=== PATIENT | male | born 1935 | race Caucasian/White ===

== ENCOUNTER 2016-09-20 09:16 | Observation (INO) | payer MEDICARE ==
[2016-09-20] MEDS ORDERED: METOCLOPRAMIDE 5 MG/ML 2 ML VIAL IVP STA (09:39)
[2016-09-20] MEDS ORDERED: diphenhydrAMINE 50 MG/ML 1 ML VIAL IVP STA (09:39)
[2016-09-20] MEDS ORDERED: SODIUM CHLORIDE 0.9% 500 ML IV STA (09:39)
[2016-09-20 11:08] LABS: Aty Lym Flag Slight; CH 31.6; HCT 42.7 % (39.0-53.0); HDW 2.35; HGB 14.6 gm/dL (13.0-17.5); MCH 31.8 pg (25.0-35.0); MCHC 34.1 g/dL (31.0-37.0); MCV 93.3 fL (80.0-100.0); Mean Platelet Volume 7.5; RBC 4.58 m/uL (4.30-5.90); RDW 13.8 % (11.5-15.5); WBC 6.6 k/uL (3.8-10.6); WBC (Perox) 6.27
[2016-09-20 11:15] LABS: Anion Gap 8 mmol/L; Blood Urea Nitrogen 13 mg/dL (9-20); Calcium 8.7 mg/dL (8.4-10.2); Carbon Dioxide 27 mmol/L (22-30); Chloride 107 mmol/L (98-107); Glucose 121 mg/dL (74-99); Non-African American GFR(MDRD) >60 (>60 ml/min/1.73 sqM); Potassium 4.2 mmol/L (3.5-5.1); Sodium 142 mmol/L (137-145)
--- NOTE | 2016-09-20 11:19 | CT ---
EXAMINATION TYPE: CT brain wo con DATE OF EXAM: 09/20/2016 HISTORY: CABRERA CT DLP: 1162 mGycm. Automated Exposure Control for Dose Reduction was Utilized. TECHNIQUE: CT scan of the head is performed without contrast. COMPARISON: CT brain dated 07-26-2014. FINDINGS: There is no acute intracranial hemorrhage or new midline shift identified. Old infarct le ft frontal parietal region is redemonstrated. Subtle midline shift to right with ex vacuo dilatation of left ventricular system is stable. There is diffuse ventricular and sulcal prominence consistent w ith diffuse age-related cerebral atrophy. There is low-attenuation in the periventricular white edison er consistent with chronic small vessel ischemic change. The globes are intact and the visualized si nuses are clear. IMPRESSION: No acute intracranial hemorrhage or new midline shift. Old left-sided infarct with diffu se age-related cerebral atrophy and chronic small vessel ischemic change all redemonstrated.
[2016-09-20 11:41] LABS: Add Differential Manual Differential
[2016-09-20 11:43] LABS: Manual Review Performed; Nucleated Red Blood Cells 0 /100 WBC (0-0); Total Cells Counted 100
[2016-09-20 12:07] LABS: Appearance,Urine Clear (Clear); Bilirubin,Urine Negative (Negative); Glucose,Urine (UA) Negative (Negative); Ketones,Urine Negative (Negative); Leukocyte Esterase,Urine Negative (Negative); Nitrite,Urine Negative (Negative); PH, Urine 6.5 (5.0-8.0); Protein,Urine Negative (Negative); Specific Gravity,Urine 1.004 (1.001-1.035); UA Billing (MACRO vs. MICRO) CHEM; Urobilinogen,Urine <2.0 mg/dL (<2.0)
[2016-09-20 12:26] LABS: Erythrocyte Sedimentation Rate 10 mm/hr (0-15)
[2016-09-20] MEDS ORDERED: KETOROLAC 30 MG/ML 1 ML VIAL IVP STA (12:46)
[2016-09-20] MEDS ORDERED: HYDROcodone/APAP 10-325MG 1 EACH TAB PO ONE (15:18)
[2016-09-20] MEDS ORDERED: NALOXONE 0.4 MG/ML 1 ML VIAL IV PRN (15:38)
[2016-09-20] MEDS ORDERED: HYDROcodone/APAP 5-325MG 1 EACH TAB PO PRN (15:38)
[2016-09-20] MEDS ORDERED: ONDANSETRON 4 MG/2 ML VIAL IVP PRN (15:38)
[2016-09-20] MEDS ORDERED: KETOROLAC 30 MG/ML 1 ML VIAL IVP PRN (15:38)
--- NOTE | 2016-09-20 15:48 | ED ---
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 Patient states the headache is all over with no specific location. Describes it as throbbing. Denies any vision changes. Denies fever. Denies photophobia. Denies vomiting diarrhea. Patient states he has not had much to eat or drink in the last several days. He's had generalized weakness and decreased appetite. Denies chest pain or shortness of breath. - Related Data Home Medications Medication Instructions Recorded Confirmed Cholecalciferol [Vitamin D3] 1,000 unit PO DAILY 01/19/14 09/20/16 Finasteride 5 mg PO HS 01/19/14 09/20/16 Nitroglycerin Sl Tabs [Nitrostat] 0.4 mg SL Q5M PRN 01/19/14 09/20/16 Simvastatin 20 mg PO HS 01/19/14 09/20/16 Terazosin [Hytrin] 5 mg PO HS 01/19/14 09/20/16 Allopurinol [Zyloprim] 100 mg PO BID PRN 07/26/14 09/20/16 Carvedilol [Coreg] 12.5 mg PO BID 07/26/14 09/20/16 Gabapentin 600 mg PO BID 04/14/15 09/20/16 amLODIPine [Norvasc] 5 mg PO HS 04/14/15 09/20/16 Ascorbic Acid [Vitamin C] 500 mg PO DAILY 09/20/16 09/20/16 Aspirin [Adult Low Dose Aspirin EC] 81 mg PO DAILY 09/20/16 09/20/16 Cetirizine HCl [Zyrtec] 10 mg PO HS 09/20/16 09/20/16 Fluticasone Nasal [place] [Flonase 1 spray EA NOSTRIL BID 09/20/16 09/20/16 Nasal [place]] Furosemide [Lasix] 20 mg PO DAILY 09/20/16 09/20/16 HYDROcodone/APAP 10-325MG [[place] 1 tab PO Q8HR PRN 09/20/16 09/20/16 10-325] Quinapril HCl [Accupril] 40 mg PO DAILY 09/20/16 09/20/16 Warfarin [Coumadin] 2.5 mg PO SUTUWETHSA 09/20/16 09/20/16 Warfarin [Coumadin] 5 mg PO MOFR 09/20/16 09/20/16 Allergies Allergy/AdvReac Type Severity Reaction Status Date / Time alprazolam [From Xanax] Allergy Unknown Verified 09/20/16 09:33 morphine Allergy Rash/Hives Verified 09/20/16 09:33 Penicillins Allergy Unknown Verified 09/20/16 09:33 Sulfa (Sulfonamide Allergy Unknown Verified 09/20/16 09:33 Antibiotics) Review of Systems ROS Statement: Those systems with pertinent positive or pertinent negative responses have been documented in the HPI. ROS Other: All systems not noted in ROS Statement are negative. Past Medical History Past Medical History: Coronary Artery Disease (CAD), Cancer, CVA/TIA, Hyperlipidemia, Hypertension, Seizure Disorder Additional Past Medical History / Comment(s): colon ca,gout, cva 1990 affecting rt side, seizure 1990, cellulits lower legs, neuropathy, pvd. History of Any Multi-Drug Resistant Organisms: MRSA Date of last positivie culture/infection: 2012 MDRO Source:: rt leg Past Surgical History: Coronary Bypass/CABG, Heart Catheterization, Orthopedic Surgery, Tonsillectomy Additional Past Surgical History / Comment(s): rt above knee amputation , bowel sx d/t cancer has coloctomy, lt fem bypass and rt leg shunt per old medical record. HAD BLOCKAGE RT GROIN SX DONE. heart cath/ptba, cataracts, toe sx and sx to repair lt pinky finger Past Psychological History: No Psychological Hx Reported Smoking Status: Former smoker Past Alcohol Use History: None Reported Past Drug Use History: None Reported - Past Family History Father Family Medical History: Unable to Obtain Additional Family Medical History / Comment(s): HEART PROBLEMS General Exam Limitations: physical limitation General appearance: alert, in no apparent distress Head exam: Present: atraumatic, normocephalic Eye exam: Present: normal appearance, PERRL. Absent: scleral icterus ENT exam: Present: mucous membranes dry Neck exam: Present: full ROM. Absent: tenderness, meningismus Respiratory exam: Present: normal lung sounds bilaterally. Absent: respiratory distress Cardiovascular Exam: Present: regular rate, normal rhythm GI/Abdominal exam: Present: soft, distended. Absent: tenderness, guarding Extremities exam: Present: normal capillary refill, other (Right AKA). Absent: pedal edema Neurological exam: Present: alert, oriented X3, other (Patient has residual dysarthria and right-sided weakness status post CVA.) Psychiatric exam: Present: normal affect, normal mood Skin exam: Present: warm, dry Course Vital Signs 09/20/16 09/20/16 09/20/16 09:42 11:00 12:15 Temperature 97.6 F 97.8 F Pulse Rate 82 58 L 60 Respiratory 16 18 18 Rate Blood Pressure 119/80 114/55 112/58 O2 Sat by Pulse 96 96 95 Oximetry 09/20/16 09/20/16 09/20/16 12:48 13:15 14:00 Temperature Pulse Rate 18 L 68 Respiratory 66 H 69 H 18 Rate Blood Pressure 116/80 139/75 138/82 O2 Sat by Pulse 97 95 Oximetry 09/20/16 09/20/16 09/20/16 15:09 15:24 15:26 Temperature 97.4 F L Pulse Rate 72 72 Respiratory 16 16 Rate Blood Pressure 186/83 134/73 O2 Sat by Pulse 95 Oximetry - Reevaluation(s) Reevaluation #1: 09/20/16 15:44 On reevaluation patient has persistent headache. Headache was mildly improved with medical therapy however is not completely resolved. EKG Findings - EKG Comments: EKG Findings:: EKG shows sinus rhythm with a first-degree AV block, prolonged DC interval at 210, ventricular rate of 67, QRS duration 156, QTC is 494. Medical Decision Making - Medical Decision Making 72-year-old male presenting with chief complaint of global headache. Patient states headache was gradual in onset. Also complains of some generalized weakness and decreased appetite. Initial workup including head CT is negative no intracranial hemorrhage or midline shift. Laboratory studies including CBC, BMP and urinalysis are unremarkable. Patient feels somewhat better after IV Toradol, Reglan and Benadryl as well as fentanyl given by EMS prior to arrival. However on second reevaluation his headache has worsened again. Patient will be admitted for further evaluation and treatment of his headache. - Lab Data Result diagrams: 09/20/16 10:30 09/20/16 10:30 Lab Results 09/20/16 09/20/16 09/20/16 Range/Units 10:30 10:30 11:59 WBC 6.6 (3.8-10.6) k/uL RBC 4.58 (4.30-5.90) m/uL Hgb 14.6 (13.0-17.5) gm/dL Hct 42.7 (39.0-53.0) % MCV 93.3 (80.0-100.0) fL MCH 31.8 (25.0-35.0) pg MCHC 34.1 (31.0-37.0) g/dL RDW 13.8 (11.5-15.5) % Plt Count 169 (150-450) k/uL Neutrophils % (Manual) 63.0 % Band Neutrophils % 3.0 % Lymphocytes % (Manual) 11.0 % Monocytes % (Manual) 14.0 % Eosinophils % (Manual) 9.0 % Neutrophils # (Manual) 4.4 (1.3-7.7) k/uL Lymphocytes # (Manual) 0.7 L (1.0-4.8) k/uL Monocytes # (Manual) 0.9 (0-1.0) k/uL Eosinophils # (Manual) 0.6 (0-0.7) k/uL Nucleated RBCs 0 (0-0) /100 WBC Manual Slide Review Performed Poikilocytosis (manual Present ESR 10 (0-15) mm/hr Sodium 142 (137-145) mmol/L Potassium 4.2 (3.5-5.1) mmol/L Chloride 107 (98-107) mmol/L Carbon Dioxide 27 (22-30) mmol/L Anion Gap 8 mmol/L BUN 13 (9-20) mg/dL Creatinine 0.93 (0.66-1.25) mg/dL Est GFR (MDRD) Af Amer >60 (>60 ml/min/1.73 sqM) Est GFR (MDRD) Non-Af >60 (>60 ml/min/1.73 sqM) Glucose 121 H (74-99) mg/dL Calcium 8.7 (8.4-10.2) mg/dL Urine Color Light Yellow Urine Appearance Clear (Clear) Urine pH 6.5 (5.0-8.0) Ur Specific [place] 1.004 (1.001-1.035) Urine Protein Negative (Negative) Urine Glucose (UA) Negative (Negative) Urine Ketones Negative (Negative) Urine Blood Negative (Negative) Urine Nitrite Negative (Negative) Urine Bilirubin Negative (Negative) Urine Urobilinogen <2.0 (<2.0) mg/dL Ur Leukocyte Esterase Negative (Negative) Disposition Clinical Impression: Dehydration, Headache Disposition: ADMITTED IP TO THIS [facility] Condition: Stable Referrals: Krish Champion MD [Primary Care Provider] - 1-2 days Decision to Admit Reason: Admit from EC Decision Date: 09/20/16 Decision Time: 15:00
[2016-09-20] MEDS: DEXTROSE 5%-0.45% NACL 1,000 ML IV SCH (16:20)
[2016-09-20 17:20] VITALS: BMI 27.4
[2016-09-20] MEDS ORDERED: NITROGLYCERIN SL TABS 0.4 MG TAB SUBLINGUAL PRN (17:33)
[2016-09-20] MEDS: CARVEDILOL 12.5 MG TAB PO SCH (18:43)
[2016-09-20 19:05] LABS: INR 2.5 (<1.1); Prothrombin Time 23.7 sec (9.0-12.0)
[2016-09-20] MEDS ORDERED: ALLOPURINOL 100 MG TAB PO PRN (19:09)
[2016-09-20] MEDS ORDERED: WARFARIN 5 MG TAB PO SCH (19:30)
[2016-09-20] MEDS: amLODIPine 5 MG TAB PO SCH (22:17)
[2016-09-20] MEDS: GABAPENTIN 300 MG CAP PO SCH (22:17)
[2016-09-20] MEDS: ATORVASTATIN 10 MG TAB PO SCH (22:17)
[2016-09-20] MEDS: FINASTERIDE 5 MG TAB PO SCH (22:17)
[2016-09-20] MEDS: TERAZOSIN 5 MG CAP PO SCH (22:18)
[2016-09-20] MEDS: LORATADINE 10 MG TAB PO SCH (22:18)
[2016-09-20] MEDS: FLUTICASONE 50MCG/SPRAY NASAL 16GM EA NOSTRIL SCH (22:18)
[2016-09-21] MEDS: FUROSEMIDE 20 MG TAB PO SCH (07:25)
[2016-09-21] MEDS: CARVEDILOL 12.5 MG TAB PO SCH ×2 (07:26→17:11)
[2016-09-21] MEDS: FLUTICASONE 50MCG/SPRAY NASAL 16GM EA NOSTRIL SCH ×2 (07:26→21:44)
[2016-09-21] MEDS: LISINOPRIL 20 MG TAB PO SCH (07:26)
[2016-09-21] MEDS: GABAPENTIN 300 MG CAP PO SCH ×2 (07:26→21:44)
[2016-09-21] MEDS: ASPIRIN 81 MG CHEW PO SCH (07:26)
[2016-09-21 08:39] LABS: INR 2.5 (<1.1); Prothrombin Time 23.8 sec (9.0-12.0)
[2016-09-21 08:47] LABS: Basophils % (A) 0 %; CH 30.2; CHCM 32.5; Eosinophils # (A) 0.4 k/uL (0-0.7); Eosinophils % (A) 4 %; HDW 2.43; HGB 15.5 gm/dL (13.0-17.5); Luc % (Auto) 2; Lymphocytes # (A) 0.9 k/uL (1.0-4.8); Lymphocytes % (A) 9 %; MCH 31.6 pg (25.0-35.0); MCHC 33.8 g/dL (31.0-37.0); MCV 93.5 fL (80.0-100.0); Mean Platelet Volume 7.3; Monocytes # (A) 0.5 k/uL (0-1.0); Monocytes % (A) 5 %; Neutrophils # (A) 7.5 k/uL (1.3-7.7); Neutrophils % (A) 80 %; RBC 4.92 m/uL (4.30-5.90); RDW 13.3 % (11.5-15.5); WBC 9.4 k/uL (3.8-10.6); WBC (Perox) 9.38
[2016-09-21 08:58] LABS: Anion Gap 8 mmol/L; Blood Urea Nitrogen 19 mg/dL (9-20); Calcium 8.8 mg/dL (8.4-10.2); Carbon Dioxide 24 mmol/L (22-30); Chloride 108 mmol/L (98-107); Glucose 160 mg/dL (74-99); Magnesium 1.9 mg/dL (1.6-2.3); Non-African American GFR(MDRD) >60 (>60 ml/min/1.73 sqM); Potassium 4.5 mmol/L (3.5-5.1); Sodium 140 mmol/L (137-145)
[2016-09-21] MEDS: ASCORBIC ACID 500 MG TAB PO SCH (12:42)
[2016-09-21] MEDS: CHOLECALCIFEROL 1,000 UNIT TAB PO SCH (12:43)
--- NOTE | 2016-09-21 13:01 | HP ---
CHIEF COMPLAINTS: Weakness and headache. I am covering for Dr. Krish Champion. HISTORY OF PRESENT ILLNESS: This 80-year-old gentleman with past medical history of multiple medical problems including right-sided CVA, history of CAD, hypertension, hyperlipidemia, seizure disorder, history CAD, CABG, right above knee amputation being followed by Dr. Krish Champion in the outpatient setting was not feeling well over the past couple of days. The patient had been complaining of weakness, dizziness and also some headache. The headache was mainly in the posterior part of the head, which was described as throbbing headache without any visual difficulties. The patient came to [facility] and admitted for evaluation and treatment. There is no history of any fever, rigors. No history of any chest pain or palpitations at this time. PAST MEDICAL HISTORY: CAD, CVA, hypertension, hyperlipidemia, seizures disorder , gout, CAD, CABG, right above knee amputation. Medications prior to admission: 1. Norvasc 5 mg q.h.s. 2. Coumadin 5 mg Tuesday, Tuesday and 2.5 mg Tuesday, Tuesday, Tuesday, , Tuesday. 3. Hytrin 5 mg q.h.s. 4. Simvastatin 20 mg q.h.s. 5. Accupril 40 mg daily. 6. Nitrostat 0.4 sublingual p.r.n. 7. [place] 10 mg q.8 p.r.n. 8. Gabapentin 600 mg p.o. b.i.d. 9. Lasix 20 mg p.o. daily. 10. Flonase one spray b.i.d. 11. Finasteride 5 mg q.h.s. 12. Vitamin D 3000 daily. 13. Zyrtec 10 mg q.h.s. 14. Coreg 12.5 mg p.o. b.i.d. 15. Aspirin 81 mg p.o. daily. 16. Vitamin C 500 mg p.o. daily. 17. Zyloprim 100 mg b.i.d. p.r.n. ALLERGIES: XANAX AND MORPHINE. FAMILY HISTORY: History of CAD and heart problems in the family. SOCIAL HISTORY: Previous history of smoking, no history of alcohol. REVIEW OF SYSTEMS: EENT: No diminished hearing, no diminished vision. CARDIOVASCULAR: No angina. RESPIRATORY: As mentioned. GI: No nausea, : No dysuria. NERVOUS SYSTEM: As mentioned earlier. ALLERGY/IMMUNOLOGY: No asthma. MUSCULOSKELETAL: As mentioned. HEMATOLOGY: No history of anemia. ENDOCRINE: No history of diabetes or hypothyroidism. CONSTITUTIONAL: As mentioned. DERMATOLOGY: Negative. RHEUMATOLOGY: Negative. PSYCHIATRY: As mentioned earlier. PHYSICAL EXAMINATION: The patient is alert and oriented x3. The pulse is 65, blood pressure 120/66, respirations 16, temperature 97.1, pulse ox 97% on 2-L. HEENT: Conjunctivae normal. Oral mucosa moist. NECK: No jugular venous distention. No carotid bruit. No lymph node enlargement. CARDIOVASCULAR: S1, S2. No S3, no S4. No murmur. RESPIRATORY: Breath sounds diminished in the bases. No rhonchi, no crackles. ABDOMEN: Soft, nontender. No mass palpable. LEGS: Status post right above knee amputation. NERVOUS SYSTEM: Higher function as mentioned earlier. Right upper limb contractures from previous stroke present. Otherwise no other focal deficit appreciated. SKIN: No rash, ulcer or bleeding. LYMPHATIC: No lymphadenopathy in the neck, axillae or groin. LAB INVESTIGATIONS: CBC within normal limits. Glucose 121. INR 2.5. CT scan of the brain: Old left side infarct with diffuse cerebral atrophy. ASSESSMENT: 1. Dizziness and weakness for evaluation, possible acute transient ischemic attack. 2. Headache for evaluation. 3. Old right-sided stroke caused by left hemispheric lesions. 4. History of coronary artery disease. 5. History of hyperlipidemia. 6. History of hypertension. 7. History of seizure disorder. 8. Gout. 9. History of coronary artery disease, coronary artery bypass graft. 10. Status post above knee amputation. 11. NO CODE, NO CPR, NO VENT. RECOMMENDATIONS AND DISCUSSIONS: This 80-year-old gentleman who presented with multiple complex medical issues, will monitor the patient closely. Continue the current medications and continue symptomatic treatment. Will reinitiate hydration and rule out acute neurological event. Neurology will be consulted. Other than that I would also recommend home medications. Repeat labs. Monitor PT and INR closely. Guarded prognosis. Further recommendations to follow. Copy of dictation forwarded to Dr. Krish Champion who is the primary physician. DAVID
[2016-09-21] MEDS: DEXTROSE 5%-0.45% NACL 1,000 ML IV SCH (15:54)
--- NOTE | 2016-09-21 17:30 | P.PN ---
Subjective Patient resting in bed this morning with continued a problem of headache. Awaiting neurological evaluation. Patient stated he has no appetite is not interested in eating Objective - Vital Signs Vital signs: Vital Signs Temp 97.8 F 09/21/16 15:00 Pulse 62 09/21/16 15:00 Resp 18 09/21/16 15:00 BP 111/54 09/21/16 15:00 Pulse Ox 92 L 09/21/16 15:00 Intake & Output 09/20/16 09/21/16 09/21/16 18:59 06:59 18:59 Intake Total 10 Output Total 375 Balance 10 -375 Weight 77.111 kg Intake: Amount of Fluid Infused ( 10 ml) Output: Urine 375 Other: Voiding Method Urinal # Voids 1 1 # Bowel Movements 0 1 - Constitutional General appearance: Present: mild distress - EENT Eyes: Present: PERRLA Ears: bilateral: normal - Neck Neck: Present: normal ROM - Respiratory Respiratory: bilateral: CTA - Cardiovascular Rhythm: irregularly irregular - Gastrointestinal General gastrointestinal: Present: soft - Integumentary Integumentary: Present: normal - Neurologic Neurologic: Present: CNII-XII intact - Musculoskeletal Musculoskeletal: Present: generalized weakness, right sided weakness - Psychiatric Psychiatric Comment(s): Patient appears depressed states he is not interested in eating food doesn't taste good Psychiatric: Present: A&O x's 3 - Labs CBC & Chem 7: 09/21/16 07:38 09/21/16 07:38 Labs: Abnormal Lab Results - Last 24 Hours (Table) 09/20/16 09/21/16 09/21/16 Range/Units 10:30 07:38 07:38 Lymphocytes # 0.9 L (1.0-4.8) k/uL PT 23.7 H (9.0-12.0) sec Chloride 108 H (98-107) mmol/L Glucose 160 H (74-99) mg/dL 09/21/16 Range/Units 07:38 Lymphocytes # (1.0-4.8) k/uL PT 23.8 H (9.0-12.0) sec Chloride (98-107) mmol/L Glucose (74-99) mg/dL - Imaging and Cardiology CT Scan - head: report reviewed Assessment and Plan Plan: Assessment dizziness weakness being evaluated for possible TIA headache for neurology consultation history of CVA right-sided stroke with left hemispheric lesions hyperlipidemia hypertension seizure disorder gout coronary disease with coronary artery bypass graft post about the knee amputation right side Plan no code no CPR no ventilator awaiting assessment per neurology
[2016-09-21] MEDS ORDERED: WARFARIN 2.5 MG TAB PO SCH (18:00)
[2016-09-21] MEDS: BUTALB/APAP/CAFF 50-325-40MG TAB PO PRN (21:42)
[2016-09-21] MEDS: LORATADINE 10 MG TAB PO SCH (21:43)
[2016-09-21] MEDS: amLODIPine 5 MG TAB PO SCH (21:43)
[2016-09-21] MEDS: TERAZOSIN 5 MG CAP PO SCH (21:43)
[2016-09-21] MEDS: ATORVASTATIN 10 MG TAB PO SCH (21:43)
[2016-09-21] MEDS: FINASTERIDE 5 MG TAB PO SCH (21:44)
[2016-09-22] MEDS: CARVEDILOL 12.5 MG TAB PO SCH (07:45)
[2016-09-22] MEDS: LISINOPRIL 20 MG TAB PO SCH (07:45)
[2016-09-22] MEDS: GABAPENTIN 300 MG CAP PO SCH (07:45)
[2016-09-22] MEDS: FLUTICASONE 50MCG/SPRAY NASAL 16GM EA NOSTRIL SCH (07:45)
[2016-09-22] MEDS: FUROSEMIDE 20 MG TAB PO SCH (07:45)
[2016-09-22] MEDS: ASPIRIN 81 MG CHEW PO SCH (07:46)
[2016-09-22 08:42] LABS: INR 4.2 (<1.1); Prothrombin Time 41.7 sec (9.0-12.0)
--- NOTE | 2016-09-22 09:51 | CONS ---
DATE OF CONSULTATION: 09/21/2016 CHIEF COMPLAINT: Headache. HISTORY OF PRESENT ILLNESS: is a pleasant 80-year-old male who is being evaluated today on 09/21/16 by the neurology service per the request of Dr. Wing for a headache. Patient has history of ischemic stroke and has residual right hemiparesis. He does not recall when the stroke occurred , but this appears to be chronic as he does have significant spasticity in his right upper extremity. The patient also has history of right lower extremity amputation, which he states was due to an infection. Patient was brought in to [facility] with the complaints of generalized weakness and dizziness over the past few days. He is also complaining of a headache that is mostly in the posterior head region bilaterally. He described the pain as a throbbing pain and he rated it at 6 out of 10 in intensity at the time of my evaluation. The intensity increases to 9 out of 10 in intensity at times. He denies any recent head injury and denies any fevers. A CT scan of the brain was done, which showed old left frontal parietal ischemic stroke along with some generalized atrophy and small vessel ischemic changes. The patient is on Coumadin at home and his INR on admission was therapeutic at 2.5. His CBC, urinalysis and basic metabolic profiles were normal. PAST MEDICAL HISTORY: Stroke, hypertension, dyslipidemia, seizure disorder, gout, coronary artery disease, history of coronary artery bypass grafting and right above the knee amputation. FAMILY HISTORY: Positive for heart disease. SOCIAL HISTORY: The patient is a former smoker. He denies any alcohol or drug use. HOME MEDICATIONS: Reviewed in the chart. ALLERGIES: MORPHINE, PENICILLIN, XANAX. REVIEW OF SYSTEMS: CONSTITUTIONAL: Negative. EYES: Negative. ENT: Negative. CARDIOVASCULAR: Negative. RESPIRATORY: Negative. NEUROLOGICAL: As mentioned above. GASTROINTESTINAL: Negative. GENITOURINARY: Negative. DERMATOLOGICAL: Negative. PSYCHIATRIC: Negative. MUSCULOSKELETAL: Positive for occasional joint pain. PHYSICAL EXAM: Vital signs show a temperature of 97.8, pulse 62, respirations 18, blood pressure 111/54. GENERAL APPEARANCE: The patient is awake and oriented x3. The patient appears to be in no acute distress. HEENT: Normocephalic, atraumatic. Tenderness to palpation is felt along bilateral greater occipital nerve region. Neck is supple with no masses felt. CARDIOVASCULAR: Regular rate and rhythm. ABDOMEN: Nontender, nondistended. Extremities showed no edema in the left lower extremity. The patient has an above the knee right amputation NEUROLOGICAL EXAM: The patient is oriented x3. Speech and language are normal. The patient does have frequent inappropriate laughter. He does have chronic right hemiparesis with spasticity seen in the right upper extremity. No facial asymmetry is seen. No tremors or seizure like activity is noticed. IMPRESSION: 1. Headache. 2. Bilateral occipital neuritis. 3. History of ischemic stroke, left middle cerebral artery distribution. 4. Right upper extremity spasticity. 5. Right hemiparesis. RECOMMENDATION: The patient's headache is likely due to occipital neuritis. I had a lengthy discussion with him regarding treatment options. At this time, I will discontinue [place] and try him on Fioricet. If this does not help, I will consider a greater occipital nerve block, which will be done in the outpatient setting. He does have significant spasticity in his right upper extremity secondary to an ischemic stroke involving the left frontal parietal region. I discussed with him the option of Botox therapy, which would be benefit him and reduce contractures. He will need outpatient physical therapy as well. Continue anticoagulation therapy. His INR is therapeutic at this time. I will continue to follow with you. Further recommendations to follow. Thank you for allowing me to participate in the care of your patient. If you have any questions, please feel free to contact me. DAVID
--- NOTE | 2016-09-22 12:11 | P.DS ---
Providers Date of admission: 09/20/16 15:38 Expected date of discharge: 09/22/16 Attending physician: Krish Champion Consults: 09/20/16 19:09 Consult Physician Routine Consulting Provider: Cindy Castaneda Consult Reason/Comments: ? tia/ headache Do you want consulting provider notified?: Yes Primary care physician: Krish Champion Hospital Course: 80-year-old male is meant admitted to the emergency room with complaints of headache weakness and anorexia. Patient was a diagnosis for headache of occipital neuritis for neurology can follow outpatient if needed for. Patient was given your set for headache states headache improved and appetite is return. Assessment dizziness weakness headache bilateral occipital neuritis history of old CVA right-sided weakness history of coronary disease with history of coronary artery bypass graft hyperlipidemia hypertension seizure disorder Plan follow up with neurology for occipital block if needed for headache follow up with family physician Dr. Krish Champion home healthcare ordered her case specialist patient is no code no CPR no ventilator Patient Condition at Discharge: Stable Plan - Discharge Summary New Discharge Prescriptions: No Action Terazosin [Hytrin] 5 mg PO HS Simvastatin 20 mg PO HS Nitroglycerin Sl Tabs [Nitrostat] 0.4 mg SL Q5M PRN PRN Reason: Chest Pain Finasteride 5 mg PO HS Cholecalciferol [Vitamin D3] 1,000 unit PO DAILY Allopurinol [Zyloprim] 100 mg PO BID PRN PRN Reason: GOUT Carvedilol [Coreg] 12.5 mg PO BID amLODIPine [Norvasc] 5 mg PO HS Gabapentin 600 mg PO BID Furosemide [Lasix] 20 mg PO DAILY HYDROcodone/APAP 10-325MG [[place] 10-325] 1 tab PO Q8HR PRN PRN Reason: Pain Warfarin [Coumadin] 2.5 mg PO SUTUWETHSA Cetirizine HCl [Zyrtec] 10 mg PO HS Warfarin [Coumadin] 5 mg PO MOFR Aspirin [Adult Low Dose Aspirin EC] 81 mg PO DAILY Ascorbic Acid [Vitamin C] 500 mg PO DAILY Quinapril HCl [Accupril] 40 mg PO DAILY Fluticasone Nasal [place] [Flonase Nasal [place]] 1 spray EA NOSTRIL BID Discharge Medication List Cholecalciferol [Vitamin D3] 1,000 unit PO DAILY 01/19/14 [History] Finasteride 5 mg PO HS 01/19/14 [History] Nitroglycerin Sl Tabs [Nitrostat] 0.4 mg SL Q5M PRN 01/19/14 [History] Simvastatin 20 mg PO HS 01/19/14 [History] Terazosin [Hytrin] 5 mg PO HS 01/19/14 [History] Allopurinol [Zyloprim] 100 mg PO BID PRN 07/26/14 [History] Carvedilol [Coreg] 12.5 mg PO BID 07/26/14 [History] Gabapentin 600 mg PO BID 04/14/15 [History] amLODIPine [Norvasc] 5 mg PO HS 04/14/15 [History] Ascorbic Acid [Vitamin C] 500 mg PO DAILY 09/20/16 [History] Aspirin [Adult Low Dose Aspirin EC] 81 mg PO DAILY 09/20/16 [History] Cetirizine HCl [Zyrtec] 10 mg PO HS 09/20/16 [History] Fluticasone Nasal [place] [Flonase Nasal [place]] 1 spray EA NOSTRIL BID 09/20/16 [ History] Furosemide [Lasix] 20 mg PO DAILY 09/20/16 [History] HYDROcodone/APAP 10-325MG [[place] 10-325] 1 tab PO Q8HR PRN 09/20/16 [History] Quinapril HCl [Accupril] 40 mg PO DAILY 09/20/16 [History] Warfarin [Coumadin] 2.5 mg PO SUTUWETHSA 09/20/16 [History] Warfarin [Coumadin] 5 mg PO MOFR 09/20/16 [History] Follow up Appointment(s)/Referral(s): Krish Champion MD [Primary Care Provider] - 1-2 days [facility], [NON-STAFF] - Cindy Castaneda MD [STAFF PHYSICIAN] - 1 Week Discharge Disposition: HOME WITH HOME HEALTH SERVICES
[2016-09-22] MEDS: ASCORBIC ACID 500 MG TAB PO SCH (12:37)
[2016-09-22] MEDS: CHOLECALCIFEROL 1,000 UNIT TAB PO SCH (12:37)
[2016-09-22] MEDS: BUTALB/APAP/CAFF 50-325-40MG TAB PO PRN (12:39)
[2016-09-22 16:00] VITALS: BP 116/47; PULSE 54; RESP 16; TEMP 97.6
--- NOTE | 2016-09-22 21:47 | P.PN ---
Subjective Principal diagnosis: Headache/head pain Patient is a 80-year-old male who is being followed by neurology for headache. Patient has a history of ischemic stroke and residual right-sided hemiparesis and deficits. Patient does not recall when the stroke occurred but appears to be chronic as he does have significant spasticity in the right upper extremity. Patient also has a history of right lower extremity amputation which she states was due to an infection. Patient was brought to the emergency department with complaints of generalized weakness, dizziness over the last several days. She also has complaints of a headache that is mostly posterior in the head and the upper cervical and greater occipital areas. Patient describes the pain as throbbing and rates it at a 4 out of 10 in intensity Today but rated it previously at a 6 out of 10. Intensity can increase to a 9 out of 10 intermittently. She denies recent injury, fevers. CT of the brain was done noted old left frontal parietal ischemic stroke with some generalized atrophy and chronic small vessel ischemic changes. Currently on Coumadin at home and his INR on admission was therapeutic. CBC, urinalysis and BMP were normal. On contact, the patient was supine in bed, resting in no acute distress and alert and oriented 3. Interval update: Patient did have previous discussion with supervising physician related to greater occipital nerve block, Botox injections and discussion relating possible pseudobulbar affect. Today the patient's pain is posterior cervical and does appear to be greater occipital area based on patient's description and presentation. Objective - Vital Signs Vital signs: Vital Signs Temp 97.6 F 09/22/16 15:00 Pulse 54 L 09/22/16 15:00 Resp 16 09/22/16 15:00 BP 116/47 09/22/16 15:00 Pulse Ox 92 L 09/22/16 15:00 Intake & Output 09/22/16 09/22/16 09/23/16 06:59 18:59 06:59 Output Total 600 700 Balance -600 -700 Output: Urine 600 400 Stool 300 Other: Voiding Method Urinal Urinal # Voids 0 1 - Exam Constitutional: AOx3, cooperative HEENT: NC/AT, no facial asymmetry is seen. Throat: Supple, no masses Respiratory: No increased work of breathing Cardiac: Regular rate and Rhythm GI: non tender, non distended Musculoskeletal:70 showed no edema in the left lower extremity, patient does have [id number] right lower extremity amputation. Neurological: AOx3, speech and language are normal, no unilateralizing weakness Including right hemiparesis and spasticity of the right upper extremity, no seizure activity note on physical exam. Sensation was normal. Integementary: no rash, no erythema Psychiatric: Mood is appropriate although patient does have frequent inappropriate laughter. - Constitutional Constitutional Comment(s): Systems not previously noted are negative - Labs CBC & Chem 7: 09/21/16 07:38 09/21/16 07:38 Labs: Abnormal Lab Results - Last 24 Hours (Table) 09/22/16 Range/Units 08:09 PT 41.7 H (9.0-12.0) sec Assessment and Plan (1) Bilateral occipital neuralgia Status: Acute (2) History of ischemic left MCA stroke Status: Acute (3) Spasticity Status: Acute (4) Hemiparesis, right Status: Acute (5) Headache Status: Acute Plan: Patient's headache is likely due to occipital neuritis. Treatment options are previously discussed yesterday. Patient's [place] was discontinued and patient trialed on Fioricet. Patient will be discharged home with oral Fioricet, one tab by mouth every 6 hours when necessary. The Fioricet did help to decrease the patient had pain to a tolerable level. Outpatient we will consider greater occipital nerve block. As relates to the patient's right upper extremity spasticity secondary to ischemic stroke, we did discuss possible treatment with Botox injections in the outpatient setting. Patient will need outpatient physical therapy. Continue anticoagulation therapy outpatient. INR is therapeutic at this time. Patient may also be worked up in the outpatient setting for possible pseudobulbar affect. Status: She can be cleared from a neurological standpoint for discharge. Patient to follow up in our office within 14 days. Patient to continue medications outpatient as noted above. I discussed the patient's pertinent medical information with Dr. Castaneda. He agrees with the plan of care as implemented.
== END 2016-09-22 16:11 | disposition home health service (06) ==
LOC: EC 09:16 → 4MS4W 15:38
PROVIDERS: ADMIT Family Medicine; ATTEND Family Medicine
DX: R42 Dizziness and giddiness (principal); R53.1 Weakness; R51 Headache; R25.2 Cramp and spasm; M54.81 Occipital neuralgia; I69.351 Hemiplegia and hemiparesis following cerebral infarction affecting right dominant side; I25.10 Atherosclerotic heart disease of native coronary artery without angina pectoris; Z95.1 Presence of aortocoronary bypass graft; E78.5 Hyperlipidemia, unspecified; I10 Essential (primary) hypertension; G40.909 Epilepsy, unspecified, not intractable, without status epilepticus; M10.9 Gout, unspecified; Z79.51 Long term (current) use of inhaled steroids; Z79.899 Other long term (current) drug therapy; Z79.82 Long term (current) use of aspirin; Z79.01 Long term (current) use of anticoagulants; Z88.5 Allergy status to narcotic agent; Z88.0 Allergy status to penicillin; Z88.2 Allergy status to sulfonamides; Z88.8 Allergy status to other drugs, medicaments and biological substances; Z85.038 Personal history of other malignant neoplasm of large intestine; Z86.14 Personal history of Methicillin resistant Staphylococcus aureus infection; Z87.891 Personal history of nicotine dependence; Z89.611 Acquired absence of right leg above knee; R13.10 Dysphagia, unspecified; I73.9 Peripheral vascular disease, unspecified; E86.0 Dehydration
CPT/HCPCS: 96375 ×3; 96374; 99285; 96376; 36415; 93005; 80048 ×2; 85652; 83735 ×2; 84484; 85025 ×2; 85610 ×3; 81003; 70450; G0378 ×3; S0138 ×2; J1200; J2765; J1885 ×2

== ENCOUNTER → 2016-12-04 | Outpatient (CLI) | payer MEDICARE ==
--- NOTE | 2016-12-04 14:44 | MR ---
EXAMINATION TYPE: MR brain wo con, MR angio head wo con DATE OF EXAM: 12/04/2016 12:50 PM COMPARISON: 07/02/2010 HISTORY: headaches, stroke, dizziness, rt side weakness FINDINGS: There is a large area of encephalomalacia involving the left MCA territory compatible with a remote i nsult. There is moderate confluent increased signal within the deep and periventricular white matter of both cerebral hemispheres. Loss of signal void within the left ICA compatible with the thrombus. No acute edema is seen on diffusion weighted imaging. There is no evidence for midline shift or mass effect. Acute intracranial hemorrhage or extra-axial collection is not evident. The paranasal sinuses demonstrate mucosal thickening involving the ethmoid air cells and maxillary si nuses. IMPRESSION: Large area of encephalomalacia left MCA territory. 2. No evidence for acute edema or hemorrhage. 3. Moderate to severe confluent increased signal within the deep and periventricular white matter. EXAMINATION TYPE: MR brain wo con, MR angio head wo con DATE OF EXAM: 12/04/2016 12:50 PM COMPARISON: NONE HISTORY: headaches, stroke, dizziness, rt side weakness Three-dimensional [id number] intracranial MRA was performed with multiple intensity projection im ages submitted and source data reviewed at the workstation. 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 The right inter nal carotid artery as well as the right MCA and the bilateral ACAs are patent. Vertebrobasilar system is patent. No evidence for sizable aneurysm. 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
== END | disposition home or self-care (01) ==
LOC: RADMRIMAIN 11:33
PROVIDERS: ATTEND Psychiatry & Neurology Neurology
DX: I66.9 Occlusion and stenosis of unspecified cerebral artery (principal); I65.22 Occlusion and stenosis of left carotid artery; G93.89 Other specified disorders of brain; R90.89 Other abnormal findings on diagnostic imaging of central nervous system
CPT/HCPCS: 70544; 70551

== ENCOUNTER 2016-12-27 14:00 | Emergency (ER) | payer MEDICARE ==
[2016-12-27 14:06] VITALS: TEMP 97.8
--- NOTE | 2016-12-27 14:20 | ED ---
General Adult HPI - General Chief complaint: Urogenital Stated complaint: unable to urinate Time Seen by Provider: 12/27/16 14:07 Source: patient, RN notes reviewed Mode of arrival: wheelchair Limitations: no limitations - History of Present Illness Initial comments: Patient 81-year-old male who presents emergency room today with chief complaint of difficulty urinating. Patient does admit that his last void was this morning. Patient does admit that yesterday he was experiencing some increased urgency and frequency. He does admit to a history of enlarged prostate. Patient does admit some lower abdominal pain at this time. He denies any other complaints or symptoms. Patient denies any recent fever, chills, shortness of breath, chest pain, back pain, nausea or vomiting, numbness or tingling, hematuria, constipation or diarrhea, headaches or visual changes, or any other complaints. - Related Data Home Medications Medication Instructions Recorded Confirmed Cholecalciferol [Vitamin D3] 1,000 unit PO QAM 01/19/14 12/27/16 Finasteride 5 mg PO DAILY@199901/19/14 12/27/16 Nitroglycerin Sl Tabs [Nitrostat] 0.4 mg SL Q5M PRN 01/19/14 12/27/16 Simvastatin 20 mg PO DAILY@199901/19/14 12/27/16 Terazosin [Hytrin] 5 mg PO DAILY@199901/19/14 12/27/16 Allopurinol [Zyloprim] 100 mg PO BID PRN 07/26/14 12/27/16 Carvedilol [Coreg] 12.5 mg PO QAM 07/26/14 12/27/16 Gabapentin 600 mg PO BID@1200,1700 04/14/15 12/27/16 amLODIPine [Norvasc] 5 mg PO DAILY@199904/14/15 12/27/16 Ascorbic Acid [Vitamin C] 500 mg PO DAILY@119909/20/16 12/27/16 Aspirin [Adult Low Dose Aspirin EC] 81 mg PO DAILY@119909/20/16 12/27/16 Cetirizine HCl [Zyrtec] 10 mg PO DAILY@199909/20/16 12/27/16 Fluticasone Nasal [place] [Flonase 1 spray EA NOSTRIL BID 09/20/16 12/27/16 Nasal [place]] Furosemide [Lasix] 20 mg PO QAM 09/20/16 12/27/16 HYDROcodone/APAP 10-325MG [Gordon 1 tab PO Q8HR PRN 09/20/16 12/27/16 10-325] Quinapril HCl [Accupril] 40 mg PO QAM 09/20/16 12/27/16 Warfarin [Coumadin] 2.5 mg PO SUTUWETHSA 09/20/16 12/27/16 Warfarin [Coumadin] 5 mg PO MOFR 09/20/16 12/27/16 Magnesium Oxide [Mag-Ox] 250 mg PO BID 12/27/16 12/27/16 Multivit-Min/FA/Lycopen/Lutein 1 tab PO DAILY 12/27/16 12/27/16 [Centrum Silver Tablet] Previous Rx's Medication Instructions Recorded Ciprofloxacin HCl [Cipro] 500 mg PO Q12HR #20 day 12/27/16 Phenazopyridine [Pyridium] 100 mg PO TID 3 Days 12/27/16 Allergies Allergy/AdvReac Type Severity Reaction Status Date / Time alprazolam [From Xanax] Allergy Rash/Hives Verified 12/27/16 15:20 morphine Allergy Rash/Hives Verified 12/27/16 15:20 Review of Systems ROS Statement: Those systems with pertinent positive or pertinent negative responses have been documented in the HPI. ROS Other: All systems not noted in ROS Statement are negative. Past Medical History Past Medical History: Coronary Artery Disease (CAD), Cancer, CVA/TIA, Hyperlipidemia, Hypertension, Seizure Disorder Additional Past Medical History / Comment(s): colon ca,gout, cva 1990 affecting rt side, seizure 1990, cellulits lower legs, neuropathy, pvd. 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 HAD BLOCKAGE RT GROIN SX DONE. heart cath/ptba, cataracts, toe sx and sx to repair lt pinky finger Past Psychological History: No Psychological Hx Reported Smoking Status: Former smoker Past Alcohol Use History: None Reported Past Drug Use History: None Reported - Past Family History Father Family Medical History: Coronary Artery Disease (CAD) Additional Family Medical History / Comment(s): HEART PROBLEMS General Exam - General Exam Comments Initial Comments: General: The patient is awake and alert, in no distress, and does not appear acutely ill. Eye: Pupils are equal, round and reactive to light, extra-ocular movements are intact. No nystagmus. There is normal conjunctiva bilaterally. No signs of icterus. Ears, nose, mouth and throat: There are moist mucous membranes and no oral lesions. Neck: The neck is supple, there is no tenderness or JVD. Cardiovascular: There is a regular rate and rhythm. No murmur, rub or gallop is appreciated. Respiratory: Lungs are clear to auscultation, respirations are non-labored, breath sounds are equal. No wheezes, stridor, rales, or rhonchi. Gastrointestinal: Soft, non-distended. Mild tenderness over the bladder. There is no rebound or guarding present. No CVA tenderness. Bowel sounds are unremarkable. Musculoskeletal: Normal ROM, no tenderness. Strength 5/5. Sensation intact. Pulses equal bilaterally 2+. Neurological: A&O x 3. CN II-XII intact, There are no obvious motor or sensory deficits. Coordination appears grossly intact. Speech is normal. Skin: Skin is warm and dry and no rashes or lesions are noted. Psychiatric: Cooperative, appropriate mood & affect, normal judgment. Limitations: no limitations Course Vital Signs 12/27/16 14:03 Temperature 97.8 F Pulse Rate 75 Respiratory 18 Rate Blood Pressure 129/71 O2 Sat by Pulse 95 Oximetry Medical Decision Making - Medical Decision Making patient's initial bladder scan showed 20 mL. Patient was able to void had 15 mL out. Post void residual was 0. Patient's urinalysis does show evidence for urinary tract infection. Patient will placed on ciprofloxacin and also given Pyridium for symptoms. He is advised follow family doctor for repeat urinalysis. Advised return here to emergency room if any symptoms increase or worsen or for any other concerns. - Lab Data Lab Results 12/27/16 Range/Units 14:47 Urine Color Yellow Urine Appearance Turbid (Clear) Urine pH 5.5 (5.0-8.0) Ur Specific [place] 1.013 (1.001-1.035) Urine Protein 1+ H (Negative) Urine Glucose (UA) Negative (Negative) Urine Ketones Negative (Negative) Urine Blood Moderate H (Negative) Urine Nitrite Negative (Negative) Urine Bilirubin Negative (Negative) Urine Urobilinogen <2.0 (<2.0) mg/dL Ur Leukocyte Esterase Large H (Negative) Urine RBC 19 H (0-5) /hpf Urine WBC >182 H (0-5) /hpf Urine WBC Clumps Few H (None) /hpf Ur Squamous Epith Cells 2 (0-4) /hpf Urine Bacteria Few H (None) /hpf Urine Mucus Rare H (None) /hpf Urine Yeast (Budding) Rare H (None) /hpf Disposition Clinical Impression: UTI (urinary tract infection) Disposition: HOME SELF-CARE Condition: Good Instructions: Urinary Tract Infection in Men (ED) Additional Instructions: Please use medication as discussed. please be aware that the pyridium will change the urine to orange color. Please follow-up with family doctor in the next 2 days. please have repeat urinalysis performed as discussed. Please return to emergency room if the symptoms increase or worsen or for any other concerns. Prescriptions: Ciprofloxacin HCl [Cipro] 500 mg PO Q12HR #20 day Phenazopyridine [Pyridium] 100 mg PO TID 3 Days Referrals: Krish Champion MD [Primary Care Provider] - 1-2 days Time of Disposition: 15:38
[2016-12-27 15:15] LABS: Appearance,Urine Turbid (Clear); Bacteria,Urine Few /hpf; Bilirubin,Urine Negative (Negative); Glucose,Urine (UA) Negative (Negative); Ketones,Urine Negative (Negative); Leukocyte Esterase,Urine Large (Negative); Mucus,Urine Rare /hpf; Nitrite,Urine Negative (Negative); PH, Urine 5.5 (5.0-8.0); Particle Count 5465; Protein,Urine 1+ (Negative); RBC,Urine 19 /hpf (0-5); Specific Gravity,Urine 1.013 (1.001-1.035); Squamous Epithelial Cell,Urine 2 /hpf (0-4); UA Billing (MACRO vs. MICRO) MICRO; Urobilinogen,Urine <2.0 mg/dL (<2.0); WBC,Urine >182 /hpf (0-5)
[2016-12-27 15:51] VITALS: BP 137/63; PULSE 62; RESP 17
== END 2016-12-27 15:58 | disposition home or self-care (01) ==
LOC: EC 14:00
DX: N39.0 Urinary tract infection, site not specified (principal); E78.5 Hyperlipidemia, unspecified; I10 Essential (primary) hypertension; I25.10 Atherosclerotic heart disease of native coronary artery without angina pectoris; N40.0 Benign prostatic hyperplasia without lower urinary tract symptoms; G40.909 Epilepsy, unspecified, not intractable, without status epilepticus; G62.9 Polyneuropathy, unspecified; M10.9 Gout, unspecified; Z87.891 Personal history of nicotine dependence; Z79.01 Long term (current) use of anticoagulants; Z79.51 Long term (current) use of inhaled steroids; Z79.82 Long term (current) use of aspirin; Z79.899 Other long term (current) drug therapy; Z88.5 Allergy status to narcotic agent; Z88.8 Allergy status to other drugs, medicaments and biological substances; Z86.73 Personal history of transient ischemic attack (TIA), and cerebral infarction without residual deficits; Z85.038 Personal history of other malignant neoplasm of large intestine; Z98.890 Other specified postprocedural states
CPT/HCPCS: 51798; 81001; 87077; 87086; 87186; 99284

== ENCOUNTER → 2017-01-21 | Outpatient (CLI) | payer MEDICARE ==
[2017-01-28 13:36] LABS: Nicotinamide 18 ng/mL; Nicotinic Acid None Detected; Nicotinuric Acid None Detected
== END | disposition home or self-care (01) ==
LOC: LABWHC1 11:03
PROVIDERS: ATTEND Psychiatry & Neurology Pain Medicine
DX: R53.83 Other fatigue (principal)
CPT/HCPCS: 36415; 82607; 84207; 84439; 84443; 84481; 84591

== ENCOUNTER 2017-03-31 10:29 | Day surgery (SDC) | payer MEDICARE ==
[2017-03-29 14:35] VITALS: BMI 31.3
[~2017-03-31 10:29] MED LIST: LACTATED RINGERS 1,000 ML IV SCH; LIDOCAINE 1% 20 ML VIAL (10MG/ML) FOR IV START INTRADERMA PRN
[2017-03-31 11:37] VITALS: RESP 16; TEMP 98.6
[2017-03-31] MEDS ORDERED: PROPOFOL 10 MG/ML 20 ML VIAL IV ONE (12:11)
--- NOTE | 2017-03-31 12:39 | P.PCN ---
Date of Procedure: 03/31/17 Procedure(s) Performed: BRIEF HISTORY: Patient is a 81-year-old pleasant white male, scheduled for an elective colonoscopy as a part of evaluation of bleeding from his colostomy bag on and off for the last 3 months duration. He was admitted to [facility] in February 2018 with significant bleeding for the colostomy bag and when he was on hold for a week and the bleeding subsided and he was discharged home. He was started back on the Coumadin a week later and since then he is been having intermittent bleeding on and off and last week had significant amount of bleeding and hence Coumadin has been on hold since last Tuesday. He scheduled for colonoscopy to the colostomy today. PROCEDURE PERFORMED: Colonoscopy with with argon plasma coagulation and snare polypectomy. PREOPERATIVE DIAGNOSIS: Bleeding in the colostomy bag. IV sedation per Anesthesia. PROCEDURE: After informed consent was obtained, the patient, was brought into the endoscopy unit. IV sedation was administered by Anesthesia under continuous monitoring. The colostomy site appeared normal. Initially the Olympus CF-160 flexible video colonoscope was then inserted into the colostomy, gradually advanced into the cecum without any difficulty. Careful examination was performed as the scope was gradually being withdrawn. Ileocecal valve and the appendiceal orifice were visualized and appeared normal. Prep was excellent. Mucosa of the cecum, ascending colon, appeared normal. In the transverse colon there were 2 polyps measuring 5 mm and 1.5 cm both were broad-based removed by snare polypectomy. In the descending colon there was a 1 cm polyp removed by snare polypectomy. The rest of the transverse colon, descending colon, appeared normal. The mucosa of the colostomy had several nonbleeding angiectasia identified which appeared to be the source of recent bleeding and hence this was coagulated using argon plasma. The patient tolerated the procedure well. IMPRESSION: Multiple scattered telangiectasia on the mucosa of the colostomy, status post argon plasma coag ligation as described above Fiber limited descending 1.5 cm broad-based transverse colon polyp status post polypectomy 1 m broad-based ascending colon polyp status post polypectomy RECOMMENDATIONS: Findings of this examination were discussed with the patient as well as his family. He was advised to follow with the biopsy results. He will resume Coumadin in 3 days.. He will be seen in office in 2 weeks.
[2017-03-31 13:11] VITALS: BP 136/61; PULSE 75
== END 2017-03-31 13:29 | disposition home or self-care (01) ==
LOC: ORWHC2ENDO 10:29
PROVIDERS: ATTEND Internal Medicine Gastroenterology
DX: D12.3 Benign neoplasm of transverse colon (principal); K63.5 Polyp of colon; I99.8 Other disorder of circulatory system; I25.10 Atherosclerotic heart disease of native coronary artery without angina pectoris; I10 Essential (primary) hypertension; E78.5 Hyperlipidemia, unspecified; Z95.1 Presence of aortocoronary bypass graft; I69.351 Hemiplegia and hemiparesis following cerebral infarction affecting right dominant side; R56.9 Unspecified convulsions; Z79.01 Long term (current) use of anticoagulants; Z79.82 Long term (current) use of aspirin; Z79.891 Long term (current) use of opiate analgesic; Z79.51 Long term (current) use of inhaled steroids; Z79.899 Other long term (current) drug therapy; Z88.5 Allergy status to narcotic agent; Z88.0 Allergy status to penicillin; Z88.8 Allergy status to other drugs, medicaments and biological substances
CPT/HCPCS: 88305; 44394; 44401; J2704; 44388

== ENCOUNTER → 2017-05-10 | Outpatient (CLI) | payer MEDICARE ==
[2017-05-10 12:00] LABS: INR 1.8 (<1.2); Prothrombin Time 16.8 sec (9.0-12.0)
== END | disposition home or self-care (01) ==
LOC: LABWHC1 10:43
PROVIDERS: ATTEND Family Medicine
DX: I48.91 Unspecified atrial fibrillation (principal)
CPT/HCPCS: 36415; 85610

== ENCOUNTER 2017-06-07 11:10 | Observation (INO) | payer MEDICARE ==
[2017-06-07] MEDS ORDERED: SODIUM CHLORIDE 0.9% 1,000 ML IV ONE (11:38)
[2017-06-07 11:58] LABS: Basophils # (A) 0.1 k/uL (0-0.2); Basophils % (A) 1 %; Eosinophils # (A) 0.6 k/uL (0-0.7); Eosinophils % (A) 6 %; HCT 39.2 % (39.0-53.0); HGB 13.7 gm/dL (13.0-17.5); Lymphocytes # (A) 0.8 k/uL (1.0-4.8); Lymphocytes % (A) 8 %; MCH 30.8 pg (25.0-35.0); MCHC 35.1 g/dL (31.0-37.0); MCV 87.9 fL (80.0-100.0); Mean Platelet Volume 7.2; Monocytes # (A) 0.6 k/uL (0-1.0); Monocytes % (A) 6 %; Neutrophils # (A) 8.1 k/uL (1.3-7.7); Neutrophils % (A) 78 %; Platelet Count 165 k/uL (150-450); RBC 4.46 m/uL (4.30-5.90); RDW 13.1 % (11.5-15.5); WBC 10.3 k/uL (3.8-10.6)
[2017-06-07 12:05] LABS: ALT 30 U/L (21-72); AST 22 U/L (17-59); Albumin 3.6 g/dL (3.5-5.0); Alkaline Phosphatase 71 U/L (38-126); Anion Gap 12 mmol/L; Blood Urea Nitrogen 15 mg/dL (9-20); Calcium 8.7 mg/dL (8.4-10.2); Carbon Dioxide 25 mmol/L (22-30); Chloride 104 mmol/L (98-107); Glucose 117 mg/dL (74-99); Potassium 3.7 mmol/L (3.5-5.1); Sodium 141 mmol/L (137-145); Total Bilirubin 0.6 mg/dL (0.2-1.3); Total Protein 7.2 g/dL (6.3-8.2)
[2017-06-07 12:13] LABS: INR 2.7 (<1.2); Partial Thromboplastin Time 26.6 sec (22.0-30.0); Prothrombin Time 24.2 sec (9.0-12.0)
--- NOTE | 2017-06-07 12:14 | CT ---
EXAMINATION TYPE: CT brain wo con DATE OF EXAM: 06/07/2017 COMPARISON: 09/20/2016 HISTORY: Patient had episode of altered mental status. CT DLP: [address] of the brain was performed. The ventricles, basal cisterns and sulci overlying the cerebral convexities demonstrate moderate enla rgement. Large left MCA territory remote infarct. Ex vacuo dilatation of the left lateral ventricle a nd left frontal horn. There is no evidence for intracranial hemorrhage or sulcal effacement. There is decreased attenuation about the periventricular white matter and deep white matter of both c erebral hemispheres, compatible with chronic small vessel ischemia. Differential diagnosis does inclu de demyelination. No mass effects are seen.No midline shift. Osseous calvarium is intact. If symptoms persist consider MRI. IMPRESSION: 1. Age related atrophic and chronic small vessel ischemic change without acute intracranial process s een at this time. Remote insult as noted.
[2017-06-07 12:15] LABS: Creatine Kinase 54 U/L (55-170)
[2017-06-07 12:29] LABS: Creatine Kinase MB 1.5 ng/mL (0.0-2.4); Troponin I <0.012 ng/mL (0.000-0.034)
--- NOTE | 2017-06-07 12:45 | XR ---
EXAMINATION TYPE: XR chest 2V DATE OF EXAM: 06/07/2017 COMPARISON: Prior chest x-ray 06/11/2015 HISTORY: Altered mental status TECHNIQUE: Frontal and lateral views of the chest are obtained. FINDINGS: There is no significant change evident. Patient is post median sternotomy and rotated. Arlyn pect there are stable pleural calcifications. No evident pneumonia, pneumothorax, or pleural effusion . IMPRESSION: Stable exam, no acute abnormality.
[2017-06-07 13:16] LABS: Appearance,Urine Clear (Clear); Bilirubin,Urine Negative (Negative); Blood,Urine Negative (Negative); Color,Urine Colorless; Glucose,Urine (UA) Negative (Negative); Ketones,Urine Negative (Negative); Leukocyte Esterase,Urine Negative (Negative); Nitrite,Urine Negative (Negative); PH, Urine 6.5 (5.0-8.0); Protein,Urine Negative (Negative); Specific Gravity,Urine 1.005 (1.001-1.035); Urobilinogen,Urine <2.0 mg/dL (<2.0)
[2017-06-07] MEDS ORDERED: DIAZEPAM 5 MG/ML 2 ML INJ IVP PRN (14:28)
[2017-06-07] MEDS ORDERED: fentaNYL (PF) 50 MCG/ML 2 ML AMP IV PRN ×2 (14:30→17:33)
[2017-06-07] MEDS ORDERED: HYDROcodone/APAP 10-325MG 1 EACH TAB PO ONE (14:31)
[2017-06-07] MEDS ORDERED: KETOROLAC 30 MG/ML 1 ML VIAL IVP STA (14:32)
[2017-06-07] MEDS ORDERED: BUTALB/APAP/CAFF 50-325-40MG TAB PO STA (14:34)
[2017-06-07] MEDS ORDERED: GABAPENTIN 300 MG CAP PO STA (14:43)
--- NOTE | 2017-06-07 14:43 | ED ---
Altered Mental Status HPI - General Chief Complaint: Altered Mental Status Stated Complaint: altered Time Seen by Provider: 06/07/17 11:30 Source: patient, EMS Mode of arrival: EMS Limitations: altered mental status - History of Present Illness Initial Comments: 81 years old gentleman came in with the change in mental status for last 2 days caregiver said he is not himself has a history of TIA or CVA DVTs also has a history of CABG and have a history of seizure disorder he does have a decreased residual right-sided weakness from his previous strokes he does have a headache which she said is a chronic no chest pain does have a shortness of breath and right arm weakness and it's from before history status sequela of his previous stroke no abdominal pain no frequency urgency dysuria no weakness of known U weakness of upper or lower extremities - Related Data Home Medications Medication Instructions Recorded Confirmed Cholecalciferol [Vitamin D3] 1,000 unit PO QAM 01/19/14 06/07/17 Finasteride 5 mg PO 01/19/14 06/07/17 Nitroglycerin Sl Tabs [Nitrostat] 0.4 mg SL Q5M PRN 01/19/14 06/07/17 Gabapentin 600 mg PO BID 04/14/15 06/07/17 amLODIPine [Norvasc] 5 mg PO DAILY 04/14/15 06/07/17 Ascorbic Acid [Vitamin C] 500 mg PO DAILY@1200 09/20/16 06/07/17 Aspirin [Adult Low Dose Aspirin EC] 81 mg PO DAILY 09/20/16 06/07/17 Fluticasone Nasal [place] [Flonase 1 spray EA NOSTRIL BID PRN 09/20/16 06/07/17 Nasal [place]] Furosemide [Lasix] 20 mg PO QAM 09/20/16 06/07/17 Quinapril HCl [Accupril] 40 mg PO QAM 09/20/16 06/07/17 Allopurinol [Zyloprim] 100 mg PO BID 03/29/17 06/07/17 Hydrocodone/Acetaminophen [[place] 1 tab PO TID PRN 03/29/17 06/07/17 10-325] Magnesium Oxide [Mag-Ox] 250 mg PO DAILY 03/29/17 06/07/17 Simvastatin [Zocor] 20 mg PO HS 03/29/17 06/07/17 Terazosin [Hytrin] 5 mg PO HS 03/29/17 06/07/17 Warfarin [Coumadin] 5 mg PO MOWEFR 03/29/17 06/07/17 Butalb/APAP/Caff 50-325-40Mg 1 tab PO Q6H PRN 06/07/17 06/07/17 [Fioricet 50-325-40] Carvedilol [Coreg] 12.5 mg PO DAILY 06/07/17 06/07/17 Memantine [Namenda] 10 mg PO BID 06/07/17 06/07/17 Warfarin [Coumadin] 2.5 mg PO SUTUTHSA 06/07/17 06/07/17 Allergies Allergy/AdvReac Type Severity Reaction Status Date / Time alprazolam [From Xanax] Allergy Rash/Hives Verified 06/07/17 11:29 morphine Allergy Rash/Hives Verified 06/07/17 11:29 Penicillins Allergy Unknown Verified 06/07/17 11:29 Childhood Review of Systems ROS Statement: Those systems with pertinent positive or pertinent negative responses have been documented in the HPI. ROS Other: All systems not noted in ROS Statement are negative. 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, palpitations, History of Any Multi-Drug Resistant Organisms: MRSA Date of last positivie culture/infection: 2012 MDRO Source:: rt leg Past Surgical History: Bowel Resection, Coronary Bypass/CABG, Heart Catheterization, Orthopedic Surgery, Tonsillectomy Additional Past Surgical History / Comment(s): 1990 CABG, rt above knee amputation , bowel resection with colostomy, Angiograms, lt fem bypass and rt leg stent, bilateral cataracts removed with lens implants, L foot toe surgery, surgery to reattach left little finger, rt eyelid surgery Past Anesthesia/Blood Transfusion Reactions: No Reported Reaction Past Psychological History: No Psychological Hx Reported Smoking Status: Former smoker Past Alcohol Use History: None Reported Past Drug Use History: None Reported - Past Family History Mother Family Medical History: Deep Vein Thrombosis (DVT) Additional Family Medical History / Comment(s): Mother had DVTs in her legs and from this. Father Family Medical History: Cancer Additional Family Medical History / Comment(s): HEART PROBLEMS General Exam - General Exam Comments Initial Comments: General: The patient is awake and alert, in no distress, and does not appear acutely ill. GCS is 15 Skin: Skin is warm and dry and no rashes or lesions are noted. Eye: Pupils are equal, round and reactive to light, extra-ocular movements are intact; there is normal conjunctiva bilaterally. Ears, nose, mouth and throat: There are moist mucous membranes and no oral lesions. Neck: The neck is supple, there is no tenderness Cardiovascular: There is a regular rate and rhythm. No murmur, rub or gallop is appreciated. Respiratory: To auscultation bilateral, crease breath sounds bilateral Gastrointestinal: Soft, non-distended, non-tender abdomen without masses or organomegaly noted. There is no rebound or guarding present. Bowel sounds are unremarkable. Back: There is no tenderness to palpation in the midline. There is no obvious deformity. Musculoskeletal: Examination of his left lower extremity noticed significant edema no signs of any DVT his neurovascular exam looks normal right sided Neurological: CN II-XII intact, Cranial nerves III through XII are intact. There are no obvious motor or sensory deficits. Coordination appears grossly intact. Speech is normal. Psychiatric: Cooperative, appropriate mood & affect, normal judgment. Limitations: altered mental status Course Vital Signs 06/07/17 06/07/17 06/07/17 11:21 13:05 13:09 Temperature 98.9 F Pulse Rate 90 72 87 Respiratory 19 18 18 Rate Blood Pressure 125/61 159/83 150/72 O2 Sat by Pulse 96 98 97 Oximetry 06/07/17 06/07/17 06/07/17 13:44 14:56 15:59 Temperature Pulse Rate 96 85 79 Respiratory 18 18 18 Rate Blood Pressure 169/96 167/78 113/69 O2 Sat by Pulse 93 L 99 93 L Oximetry 06/07/17 06/07/17 06/07/17 16:00 17:05 18:36 Temperature Pulse Rate 83 80 72 Respiratory 18 18 18 Rate Blood Pressure 136/69 115/81 142/75 O2 Sat by Pulse 94 L 94 L Oximetry 06/07/17 19:12 Temperature Pulse Rate 67 Respiratory 18 Rate Blood Pressure 108/53 O2 Sat by Pulse 92 L Oximetry Normal sinus rhythm EKG ventricular rate is 80 UT interval is 154 QRS duration is 150 QT/QTc is 42/482 noticed right bundle branch block noticed some PVCs as well no definitive ST elevation or ST depression noticed in this EKG and the patient was reassessed at 1430, head CT is normal CBC is normal INR is negative troponin is negative compressive metabolic panel is unremarkable chest x-rays unremarkable EKG was unremarkable and didn't look different comparing to the old EKG, he had Quite a severe cramp in his left lower extremity and left upper extremity we could do the Valium is ALLERGIC to benzos and he is ALLERGIC to morphine and we don't have any Dilaudid but it Y fentanyl 50 mics IV and his home meds aren't [place] he takes [place] 10 3 times a day he also takes Fioricet and he also taking gabapentin is that of withdrawal from any one of those and all 3 of those are not sure though there was no electrolyte imbalance and reviewed his Venous Doppler for the left leg is negative as well Medical Decision Making - Lab Data Result diagrams: 06/07/17 11:40 06/07/17 11:40 Lab Results 06/07/17 06/07/17 06/07/17 Range/Units 11:40 11:40 11:40 WBC 10.3 (3.8-10.6) k/uL RBC 4.46 (4.30-5.90) m/uL Hgb 13.7 (13.0-17.5) gm/dL Hct 39.2 (39.0-53.0) % MCV 87.9 (80.0-100.0) fL MCH 30.8 (25.0-35.0) pg MCHC 35.1 (31.0-37.0) g/dL RDW 13.1 (11.5-15.5) % Plt Count 165 (150-450) k/uL Neutrophils % 78 % Lymphocytes % 8 % Monocytes % 6 % Eosinophils % 6 % Basophils % 1 % Neutrophils # 8.1 H (1.3-7.7) k/uL Lymphocytes # 0.8 L (1.0-4.8) k/uL Monocytes # 0.6 (0-1.0) k/uL Eosinophils # 0.6 (0-0.7) k/uL Basophils # 0.1 (0-0.2) k/uL PT (9.0-12.0) sec INR (<1.2) APTT (22.0-30.0) sec Sodium 141 (137-145) mmol/L Potassium 3.7 (3.5-5.1) mmol/L Chloride 104 (98-107) mmol/L Carbon Dioxide 25 (22-30) mmol/L Anion Gap 12 mmol/L BUN 15 (9-20) mg/dL Creatinine 0.83 (0.66-1.25) mg/dL Est GFR (CKD-EPI)AfAm >90 (>60 ml/min/1.73 sqM) Est GFR (CKD-EPI)NonAf 84 (>60 ml/min/1.73 sqM) Glucose 117 H (74-99) mg/dL Calcium 8.7 (8.4-10.2) mg/dL Total Bilirubin 0.6 (0.2-1.3) mg/dL AST 22 (17-59) U/L ALT 30 (21-72) U/L Alkaline Phosphatase 71 (38-126) U/L Total Creatine Kinase 54 L (55-170) U/L CK-MB (CK-2) 1.5 (0.0-2.4) ng/mL CK-MB (CK-2) Rel Index 2.8 Troponin I <0.012 (0.000-0.034) ng/mL Total Protein 7.2 (6.3-8.2) g/dL Albumin 3.6 (3.5-5.0) g/dL Urine Color Urine Appearance (Clear) Urine pH (5.0-8.0) Ur Specific [place] (1.001-1.035) Urine Protein (Negative) Urine Glucose (UA) (Negative) Urine Ketones (Negative) Urine Blood (Negative) Urine Nitrite (Negative) Urine Bilirubin (Negative) Urine Urobilinogen (<2.0) mg/dL Ur Leukocyte Esterase (Negative) 06/07/17 06/07/17 Range/Units 11:40 13:03 WBC (3.8-10.6) k/uL RBC (4.30-5.90) m/uL Hgb (13.0-17.5) gm/dL Hct (39.0-53.0) % MCV (80.0-100.0) fL MCH (25.0-35.0) pg MCHC (31.0-37.0) g/dL RDW (11.5-15.5) % Plt Count (150-450) k/uL Neutrophils % % Lymphocytes % % Monocytes % % Eosinophils % % Basophils % % Neutrophils # (1.3-7.7) k/uL Lymphocytes # (1.0-4.8) k/uL Monocytes # (0-1.0) k/uL Eosinophils # (0-0.7) k/uL Basophils # (0-0.2) k/uL PT 24.2 H (9.0-12.0) sec INR 2.7 H (<1.2) APTT 26.6 (22.0-30.0) sec Sodium (137-145) mmol/L Potassium (3.5-5.1) mmol/L Chloride (98-107) mmol/L Carbon Dioxide (22-30) mmol/L Anion Gap mmol/L BUN (9-20) mg/dL Creatinine (0.66-1.25) mg/dL Est GFR (CKD-EPI)AfAm (>60 ml/min/1.73 sqM) Est GFR (CKD-EPI)NonAf (>60 ml/min/1.73 sqM) Glucose (74-99) mg/dL Calcium (8.4-10.2) mg/dL Total Bilirubin (0.2-1.3) mg/dL AST (17-59) U/L ALT (21-72) U/L Alkaline Phosphatase (38-126) U/L Total Creatine Kinase (55-170) U/L CK-MB (CK-2) (0.0-2.4) ng/mL CK-MB (CK-2) Rel Index Troponin I (0.000-0.034) ng/mL Total Protein (6.3-8.2) g/dL Albumin (3.5-5.0) g/dL Urine Color Colorless Urine Appearance Clear (Clear) Urine pH 6.5 (5.0-8.0) Ur Specific [place] 1.005 (1.001-1.035) Urine Protein Negative (Negative) Urine Glucose (UA) Negative (Negative) Urine Ketones Negative (Negative) Urine Blood Negative (Negative) Urine Nitrite Negative (Negative) Urine Bilirubin Negative (Negative) Urine Urobilinogen <2.0 (<2.0) mg/dL Ur Leukocyte Esterase Negative (Negative) Disposition Clinical Impression: Change in mental status, Muscle cramps, Pain in left lower leg Disposition: ADMITTED IP TO THIS [facility] Condition: Good
[2017-06-07] MEDS ORDERED: NALOXONE 0.4 MG/ML 1 ML VIAL IV PRN (17:35)
[2017-06-07] MEDS ORDERED: ACETAMINOPHEN TAB 325 MG TAB PO PRN (17:35)
[2017-06-07] MEDS ORDERED: ONDANSETRON 4 MG/2 ML VIAL IVP PRN (17:35)
[2017-06-07] MEDS ORDERED: BUTALB/APAP/CAFF 50-325-40MG TAB PO PRN (17:40)
[2017-06-07] MEDS ORDERED: NITROGLYCERIN SL TABS 0.4 MG TAB SUBLINGUAL PRN (17:40)
[2017-06-07] MEDS ORDERED: FLUTICASONE 50MCG/SPRAY NASAL 16GM EA NOSTRIL PRN (17:40)
--- NOTE | 2017-06-07 18:57 | US ---
EXAMINATION TYPE: US venous doppler duplex LE LT DATE OF EXAM: 06/07/2017 6:13 PM COMPARISON: NONE CLINICAL HISTORY: Pain. left leg cramps SIDE PERFORMED: Left TECHNIQUE: The lower extremity deep venous system is examined utilizing real time linear array sonog sheila with graded compression, doppler sonography and color-flow sonography. VESSELS IMAGED: External Iliac Vein (EIV) Common Femoral Vein Deep Femoral Vein Greater Saphenous Vein * Femoral Vein Popliteal Vein Small Saphenous Vein * Proximal Calf Veins (* superficial vessels) Left Leg: Negative for DVT IMPRESSION: Normal exam. No evidence of deep venous thrombosis in the left leg.
[2017-06-07] MEDS: GABAPENTIN 300 MG CAP PO SCH (22:20)
[2017-06-07] MEDS: HYDROcodone/APAP 10-325MG 1 EACH TAB PO PRN (22:21)
[2017-06-07] MEDS: MEMANTINE 10 MG TAB PO SCH (22:22)
[2017-06-07] MEDS: DOXAZOSIN 4 MG TAB PO SCH (22:22)
[2017-06-07] MEDS: ATORVASTATIN 10 MG TAB PO SCH (22:22)
[2017-06-07] MEDS: WARFARIN 2.5 MG TAB PO SCH (22:22)
[2017-06-07] MEDS: ALLOPURINOL 100 MG TAB PO SCH (22:23)
[2017-06-07 22:38] VITALS: BMI 25.0
[2017-06-07] MEDS: FINASTERIDE 5 MG TAB PO SCH (23:06)
[2017-06-08] MEDS: MEMANTINE 10 MG TAB PO SCH ×2 (08:37→21:19)
[2017-06-08] MEDS: HYDROcodone/APAP 10-325MG 1 EACH TAB PO PRN (08:37)
[2017-06-08] MEDS: FUROSEMIDE 20 MG TAB PO SCH (08:37)
[2017-06-08] MEDS: CARVEDILOL 12.5 MG TAB PO SCH (08:38)
[2017-06-08] MEDS: ASPIRIN 81 MG PO SCH (08:38)
[2017-06-08] MEDS: LISINOPRIL 20 MG TAB PO SCH (08:38)
[2017-06-08] MEDS: amLODIPine 5 MG TAB PO SCH (08:39)
[2017-06-08] MEDS: GABAPENTIN 300 MG CAP PO SCH ×2 (08:39→21:19)
[2017-06-08] MEDS: ALLOPURINOL 100 MG TAB PO SCH ×2 (08:39→21:19)
[2017-06-08] MEDS: MAGNESIUM OXIDE 400 MG TAB PO SCH (08:39)
[2017-06-08] MEDS: CHOLECALCIFEROL 1,000 UNIT TAB PO SCH (08:40)
[2017-06-08] MEDS: ASCORBIC ACID 500 MG TAB PO SCH (08:40)
--- NOTE | 2017-06-08 11:31 | P.HPIM ---
History of Present Illness 81-year-old male was brought to the emergency room with complaints of mental status changes and persistent left leg pain. Patient has a history of peripheral vascular disease his had found bypass. Patient has a history of coronary disease with CABG. His had CVA with right-sided weakness and some aphasia. Patient appears to be baseline on mental status. 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, palpitations, History of Any Multi-Drug Resistant Organisms: MRSA Date of last positivie culture/infection: 2012 MDRO Source:: rt leg Past Surgical History: Bowel Resection, Coronary Bypass/CABG, Heart Catheterization, Orthopedic Surgery, Tonsillectomy Additional Past Surgical History / Comment(s): 1990 CABG, rt above knee amputation , bowel resection with colostomy, Angiograms, lt fem bypass and rt leg stent, bilateral cataracts removed with lens implants, L foot toe surgery, surgery to reattach left little finger, rt eyelid surgery Past Anesthesia/Blood Transfusion Reactions: No Reported Reaction Past Psychological History: No Psychological Hx Reported Additional Psychological History / Comment(s): . Smoking Status: Former smoker Past Alcohol Use History: None Reported Additional Past Alcohol Use History / Comment(s): QUIT SMOKING 22 YEARS AGO - SMOKED A PIPE Past Drug Use History: None Reported - Past Family History Mother Family Medical History: Deep Vein Thrombosis (DVT) Additional Family Medical History / Comment(s): Mother had DVTs in her legs and from this. Father Family Medical History: Cancer Additional Family Medical History / Comment(s): HEART PROBLEMS Medications and Allergies Home Medications Medication Instructions Recorded Confirmed Type Cholecalciferol [Vitamin D3] 1,000 unit PO QAM 01/19/14 06/07/17 History Finasteride 5 mg PO HS 01/19/14 06/07/17 History Nitroglycerin Sl Tabs [Nitrostat] 0.4 mg SL Q5M PRN 01/19/14 06/07/17 History Gabapentin 600 mg PO BID 04/14/15 06/07/17 History amLODIPine [Norvasc] 5 mg PO DAILY 04/14/15 06/07/17 History Ascorbic Acid [Vitamin C] 500 mg PO DAILY@1200 09/20/16 06/07/17 History Aspirin [Adult Low Dose Aspirin EC] 81 mg PO DAILY 09/20/16 06/07/17 History Fluticasone Nasal [place] [Flonase 1 spray EA NOSTRIL BID PRN 09/20/16 06/07/17 History Nasal [place]] Furosemide [Lasix] 20 mg PO QAM 09/20/16 06/07/17 History Quinapril HCl [Accupril] 40 mg PO QAM 09/20/16 06/07/17 History Allopurinol [Zyloprim] 100 mg PO BID 03/29/17 06/07/17 History Hydrocodone/Acetaminophen [[place] 1 tab PO TID PRN 03/29/17 06/07/17 History 10-325] Magnesium Oxide [Mag-Ox] 250 mg PO DAILY 03/29/17 06/07/17 History Simvastatin [Zocor] 20 mg PO HS 03/29/17 06/07/17 History Terazosin [Hytrin] 5 mg PO HS 03/29/17 06/07/17 History Warfarin [Coumadin] 5 mg PO MOWEFR 03/29/17 06/07/17 History Butalb/APAP/Caff 50-325-40Mg 1 tab PO Q6H PRN 06/07/17 06/07/17 History [Fioricet 50-325-40] Carvedilol [Coreg] 12.5 mg PO DAILY 06/07/17 06/07/17 History Memantine [Namenda] 10 mg PO BID 06/07/17 06/07/17 History Warfarin [Coumadin] 2.5 mg PO SUTUTHSA 06/07/17 06/07/17 History Allergies Allergy/AdvReac Type Severity Reaction Status Date / Time alprazolam [From Xanax] Allergy Rash/Hives Verified 06/07/17 11:29 morphine Allergy Rash/Hives Verified 06/07/17 11:29 Penicillins Allergy Unknown Verified 06/07/17 11:29 Childhood Physical Exam Vitals: Vital Signs Temp Pulse Pulse Resp BP BP Pulse Ox 06/08/17 07:00 97.8 F 62 16 144/53 94 L 06/07/17 23:00 96.7 F L 81 16 144/72 94 L 06/07/17 21:34 98.2 F 59 L 18 126/56 94 L 06/07/17 20:14 76 18 140/69 92 L 06/07/17 19:12 67 18 108/53 92 L 06/07/17 18:36 72 18 142/75 06/07/17 17:05 80 18 115/81 94 L 06/07/17 16:00 83 18 136/69 94 L 06/07/17 15:59 79 18 113/69 93 L 06/07/17 14:56 85 18 167/78 99 06/07/17 13:44 96 18 169/96 93 L 06/07/17 13:09 87 18 150/72 97 06/07/17 13:05 72 18 159/83 98 Intake and Output 06/07/17 06/08/17 06/08/17 22:59 06:59 14:59 Intake Total 800 Balance 800 Intake: Intake, IV Titration 800 Amount Sodium Chloride 0.9% 1, 800 000 ml @ 100 mls/hr IV . Q10H ONE Rx#:[id number] Other: Voiding Method Urinal Urinal Weight 72.5 kg 72.5 kg - Constitutional General appearance: mild distress, obese - EENT Eyes: PERRLA Ears: bilateral: normal - Neck Neck: normal ROM - Respiratory Respiratory: bilateral: CTA - Cardiovascular Rhythm: regular - Gastrointestinal Has a functioning colostomy General gastrointestinal: soft - Integumentary Integumentary: normal - Neurologic Neurologic: CNII-XII intact - Musculoskeletal 8 leg above the knee amputation Musculoskeletal: generalized weakness - Psychiatric Patient answers appropriately with yes and no Psychiatric: appropriate affect Results CBC & Chem 7: 06/07/17 11:40 06/07/17 11:40 Labs: Abnormal Lab Results - Last 24 Hours (Table) 06/07/17 06/07/17 06/07/17 Range/Units 11:40 11:40 11:40 Neutrophils # 8.1 H (1.3-7.7) k/uL Lymphocytes # 0.8 L (1.0-4.8) k/uL PT (9.0-12.0) sec INR (<1.2) Glucose 117 H (74-99) mg/dL Total Creatine Kinase 54 L (55-170) U/L 06/07/17 Range/Units 11:40 Neutrophils # (1.3-7.7) k/uL Lymphocytes # (1.0-4.8) k/uL PT 24.2 H (9.0-12.0) sec INR 2.7 H (<1.2) Glucose (74-99) mg/dL Total Creatine Kinase (55-170) U/L Chest x-ray: report reviewed CT Scan - head: report reviewed Thrombosis Risk Factor Assmnt - Choose All That Apply Any of the Below Risk Factors Present?: No Other Risk Factors: Yes Each Risk Factor Represents 3 Points: Age 75 years or older Thrombosis Risk Factor Assessment Total Risk Factor Score: 3 Thrombosis Risk Factor Assessment Level: Moderate Risk Assessment and Plan Assessment: Assessment Acute mental status changes need to rule out TIA Left lower leg pain history of peripheral vascular disease History of coronary disease with CABG Right leg [id number] amputation Bowel resection with colostomy for colon cancer Fem bypass with stents to right Seizure history Hypertension Carotid artery disease History of paroxysmal atrial fibrillation History of DVTs Plan Neurology consultation regarding mental status changes Evaluation by vascular surgeon for peripheral vascular disease left leg
--- NOTE | 2017-06-08 15:11 | P.GSCN ---
<Sona Graves - Last Filed: 06/08/17 14:59> History of Present Illness Consult date: 06/08/17 Reason for Consult: Peripheral vascular disease, treatment recommendations. Requesting physician: Krish Champion History of present illness: This is a 81-year-old patient of Dr. Krish Champion. 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 He presented to [facility] emergency room with acute mental status change per his caregiver as well as left lower extremity pain. He had a CT of the brain which demonstrated no acute process. He also had a lower extremity Doppler which was negative for DVT. He was admitted to the hospital for further evaluation and workup. Dr. Alcantara was consulted for treatment recommendations for his peripheral vascular disease. Review of Systems 14 point review of systems was completed and was negative except as noted. - Constitutional Reports chronic headaches - Musculoskeletal Reports muscle weakness left: as per HPI Past Medical History Past Medical History: Coronary Artery Disease (CAD), Cancer, CVA/TIA, Deep Vein Thrombosis (DVT), Hyperlipidemia, Hypertension, Prostate Disorder, Seizure Disorder, Skin Disorder, Vascular Disorder Additional Past Medical History / Comment(s): 1990 CVA with R sided weakness- lorenzo walker, 1990 seizure, hx colon cancer , DVTs in bilateral legs, PVD- neuropathy, hx cellulitis lower legs, gout R foot toes, occipital neuritis, headaches and dizziness from blocked carotid arteries, palpitations, History of Any Multi-Drug Resistant Organisms: MRSA Year Discovered:: 2012 MDRO Source:: rt leg Past Surgical History: Bowel Resection, Coronary Bypass/CABG, Heart Catheterization, Orthopedic Surgery, Tonsillectomy Additional Past Surgical History / Comment(s): 1990 CABG, rt above knee amputation , bowel resection with colostomy, Angiograms, lt fem bypass and rt leg stent, bilateral cataracts removed with lens implants, L foot toe surgery, surgery to reattach left little finger, rt eyelid surgery Past Anesthesia/Blood Transfusion Reactions: No Reported Reaction Past Psychological History: No Psychological Hx Reported Additional Psychological History / Comment(s): . Smoking Status: Former smoker Past Alcohol Use History: None Reported Additional Past Alcohol Use History / Comment(s): QUIT SMOKING 22 YEARS AGO - SMOKED A PIPE Past Drug Use History: None Reported - Past Family History Mother Family Medical History: Deep Vein Thrombosis (DVT) Additional Family Medical History / Comment(s): Mother had DVTs in her legs and from this. Father Family Medical History: Cancer Additional Family Medical History / Comment(s): HEART PROBLEMS Medications and Allergies Home Medications Medication Instructions Recorded Confirmed Type Cholecalciferol [Vitamin D3] 1,000 unit PO QAM 01/19/14 06/07/17 History Finasteride 5 mg PO HS 01/19/14 06/07/17 History Nitroglycerin Sl Tabs [Nitrostat] 0.4 mg SL Q5M PRN 01/19/14 06/07/17 History Gabapentin 600 mg PO BID 04/14/15 06/07/17 History amLODIPine [Norvasc] 5 mg PO DAILY 04/14/15 06/07/17 History Ascorbic Acid [Vitamin C] 500 mg PO DAILY@1200 09/20/16 06/07/17 History Aspirin [Adult Low Dose Aspirin EC] 81 mg PO DAILY 09/20/16 06/07/17 History Fluticasone Nasal [place] [Flonase 1 spray EA NOSTRIL BID PRN 09/20/16 06/07/17 History Nasal [place]] Furosemide [Lasix] 20 mg PO QAM 09/20/16 06/07/17 History Quinapril HCl [Accupril] 40 mg PO QAM 09/20/16 06/07/17 History Allopurinol [Zyloprim] 100 mg PO BID 03/29/17 06/07/17 History Hydrocodone/Acetaminophen [[place] 1 tab PO TID PRN 03/29/17 06/07/17 History 10-325] Magnesium Oxide [Mag-Ox] 250 mg PO DAILY 03/29/17 06/07/17 History Simvastatin [Zocor] 20 mg PO HS 03/29/17 06/07/17 History Terazosin [Hytrin] 5 mg PO HS 03/29/17 06/07/17 History Warfarin [Coumadin] 5 mg PO MOWEFR 03/29/17 06/07/17 History Butalb/APAP/Caff 50-325-40Mg 1 tab PO Q6H PRN 03/27/18 03/27/18 History [Fioricet 50-325-40] Carvedilol [Coreg] 12.5 mg PO DAILY 06/07/17 06/07/17 History Memantine [Namenda] 10 mg PO BID 06/07/17 06/07/17 History Warfarin [Coumadin] 2.5 mg PO SUTUTHSA 06/07/17 06/07/17 History Allergies Allergy/AdvReac Type Severity Reaction Status Date / Time alprazolam [From Xanax] Allergy Rash/Hives Verified 06/07/17 11:29 morphine Allergy Rash/Hives Verified 06/07/17 11:29 Penicillins Allergy Unknown Verified 06/07/17 11:29 Childhood Surgical - Exam Vital Signs Temp Pulse Resp BP Pulse Ox 98.9 F 90 19 125/61 96 06/07/17 11:21 06/07/17 11:21 06/07/17 11:21 06/07/17 11:21 06/07/17 11:21 - General well developed, well nourished, no distress, chronically ill - Eyes normal ocular movement - ENT decreased hearing - Neck trachea midline - Respiratory Lungs sounds diminished bilaterally. Respirations even, nonlabored. Currently on 3 L nasal cannula with oxygen saturation 94%. - Cardiovascular S1, S2 present. Regular rate and rhythm, sinus rhythm on telemetry. Palpable radial pulses, faintly palpable left DP/PT pulses. No edema present. - Abdomen Abdomen: soft, non tender, bowel sounds - Genitourinary Deferred - Rectum Deferred - Integumentary Skin is warm and dry. Left lower extremity is warm and pink, without edema. The patient does have some excoriated areas on the left black but no currently open wounds. - Neurologic normal sensation - Musculoskeletal Right-sided weakness present. - Psychiatric oriented to time, oriented to person, oriented to place, speech is normal, memory intact Results - Labs 06/07/17 11:40 06/07/17 11:40 Microbiology - Last 24 Hours (Table) 06/07/17 11:40 Blood Culture - Preliminary Blood No Growth after 24 hours - Imaging Chest x-ray: report reviewed, image reviewed Additional studies: CT of the brain, lower extremity Doppler results reviewed. Assessment and Plan (1) Change in mental status Current Visit: Yes Status: Acute Code(s): R41.82 - ALTERED MENTAL STATUS, UNSPECIFIED SNOMED Code(s): 472544800 (2) Pain in left lower leg Current Visit: Yes Status: Chronic Code(s): M79.662 - PAIN IN LEFT LOWER LEG SNOMED Code(s): 84049885 Plan: The patient was seen and examined at the bedside. Chart/diagnostics were reviewed. The case was discussed in detail with Dr. Alcantara as he is very familiar with this patient and has been treating him for peripheral vascular disease for many years. At this time we do not feel that the patient is a candidate for any interventions, his disease process has been stable for years. We recommend pain control and close observation. Medical management of other comorbid disease processes per primary care service. Thank you Dr. Champion for this consult. Please call us with any questions. Time with Patient: Greater than 30 <Jose Alcantara - Last Filed: 06/10/17 11:08> History of Present Illness History of present illness: Nurse practitioner notes reviewed and accepted. As described in this patient has been cared for by me for many years. He has severe but stable lower extremity occlusive disease. He has had long-standing left leg pain. He has been evaluated in the past and is a poor candidate for any form of intervention. Unless he develops a nonhealing ulceration or a dramatic change in his pain pattern I would continue with symptomatic care. Surgical - Exam Osteopathic Statement: *. No significant issues noted on an osteopathic structural exam other than those noted in the History and Physical/Consult. Vital Signs Temp Pulse Resp BP Pulse Ox 98.9 F 90 19 125/61 96 06/07/17 11:21 06/07/17 11:21 06/07/17 11:21 06/07/17 11:21 06/07/17 11:21 Results - Labs 06/10/17 07:49 06/10/17 07:49 Abnormal Lab Results - Last 24 Hours (Table) 06/10/17 06/10/17 06/10/17 Range/Units 07:49 07:49 07:49 Plt Count 142 L (150-450) k/uL Lymphocytes # 0.8 L (1.0-4.8) k/uL PT 42.5 H (9.0-12.0) sec INR 4.7 H (<1.2) Chloride 110 H (98-107) mmol/L Microbiology - Last 24 Hours (Table) 06/07/17 11:40 Blood Culture - Preliminary Blood No Growth after 48 hours Diabetes panel 06/10/17 Range/Units 07:49 Sodium 143 (137-145) mmol/L Potassium 4.1 (3.5-5.1) mmol/L Chloride 110 H (98-107) mmol/L Carbon Dioxide 23 (22-30) mmol/L BUN 13 (9-20) mg/dL Creatinine 0.80 (0.66-1.25) mg/dL Glucose 92 (74-99) mg/dL Calcium 9.1 (8.4-10.2) mg/dL Thyroid panel 06/09/17 Range/Units 17:36 TSH 0.953 (0.465-4.680) mIU/L Calcium panel 06/10/17 Range/Units 07:49 Calcium 9.1 (8.4-10.2) mg/dL Pituitary panel 06/09/17 06/10/17 Range/Units 17:36 07:49 Sodium 143 (137-145) mmol/L Potassium 4.1 (3.5-5.1) mmol/L Chloride 110 H (98-107) mmol/L Carbon Dioxide 23 (22-30) mmol/L BUN 13 (9-20) mg/dL Creatinine 0.80 (0.66-1.25) mg/dL Glucose 92 (74-99) mg/dL Calcium 9.1 (8.4-10.2) mg/dL TSH 0.953 (0.465-4.680) mIU/L Adrenal panel 06/10/17 Range/Units 07:49 Sodium 143 (137-145) mmol/L Potassium 4.1 (3.5-5.1) mmol/L Chloride 110 H (98-107) mmol/L Carbon Dioxide 23 (22-30) mmol/L BUN 13 (9-20) mg/dL Creatinine 0.80 (0.66-1.25) mg/dL Glucose 92 (74-99) mg/dL Calcium 9.1 (8.4-10.2) mg/dL
[2017-06-08] MEDS ORDERED: WARFARIN 5 MG TAB PO SCH (18:00)
[2017-06-08] MEDS: ATORVASTATIN 10 MG TAB PO SCH (21:19)
[2017-06-08] MEDS: FINASTERIDE 5 MG TAB PO SCH (21:19)
[2017-06-08] MEDS: DOXAZOSIN 4 MG TAB PO SCH (21:19)
--- NOTE | 2017-06-08 23:47 | P.CNNES ---
History of Present Illness Consult date: 06/08/17 Reason for Consult: This patient is admitted with altered mental status and dizziness. History of Present Illness: This patient is a 81-year-old right-handed white male who was brought into the emergency room yesterday with symptoms of altered mental status and confusion for 2 days. His caregivers noted a change in his mental status and advised him to come to the hospital for further evaluation. Patient has a history of having suffered a large stroke 25 years ago. He has been left with some severe spastic hemiplegia on his right side following the stroke. Patient was seen in the emergency room by Dr. Cabezas. He was sent for a computed tomography scan of the brain which revealed evidence of a large left MCA stroke. No acute stroke or hemorrhage was noted and no mass effect or midline shift was noted. Age- related atrophy and chronic small vessel ischemic changes were observed. There was no evidence of new findings of stroke. The patient also was complaining in the emergency room of left leg pain. He was sent for a venous Doppler ultrasound of the left leg which came back negative for DVT in the left leg. The patient appears to be doing better today in terms of his mental status. He states he was feeling dizzy and confused and this was his main reason for admission to the hospital. He does have history of underlying seizure disorder but is not on any specific anticonvulsant medication. The patient is being treated for underlying dementia and does take Namenda. He also has a history of long-term anticoagulation and is on Coumadin. When questioned today the patient seems to be more appropriate and is able to answer simple questions without much difficulty. The patient is now admitted and neurology has been consulted for further evaluation and recommendations. Review of Systems Constitutional: Denies chills, Denies fever Eyes: denies blurred vision, denies pain Ears, nose, mouth and throat: Denies headache, Denies sore throat Cardiovascular: Denies chest pain, Denies shortness of breath Respiratory: Denies cough Gastrointestinal: Denies abdominal pain, Denies diarrhea, Denies nausea, Denies vomiting Musculoskeletal: Denies myalgias Integumentary: Denies pruritus, Denies rash Neurological: Reports change in mentation, Reports confusion, Reports memory loss, Reports spasticity, Denies numbness, Denies weakness Psychiatric: Denies anxiety, Denies depression Endocrine: Denies fatigue, Denies weight change 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, palpitations, History of Any Multi-Drug Resistant Organisms: MRSA Date of last positivie culture/infection: 2012 MDRO Source:: rt leg Past Surgical History: Bowel Resection, Coronary Bypass/CABG, Heart Catheterization, Orthopedic Surgery, Tonsillectomy Additional Past Surgical History / Comment(s): 1990 CABG, rt above knee amputation , bowel resection with colostomy, Angiograms, lt fem bypass and rt leg stent, bilateral cataracts removed with lens implants, L foot toe surgery, surgery to reattach left little finger, rt eyelid surgery Past Anesthesia/Blood Transfusion Reactions: No Reported Reaction Past Psychological History: No Psychological Hx Reported Additional Psychological History / Comment(s): . Smoking Status: Former smoker Past Alcohol Use History: None Reported Additional Past Alcohol Use History / Comment(s): QUIT SMOKING 22 YEARS AGO - SMOKED A PIPE Past Drug Use History: None Reported - Past Family History Mother Family Medical History: Deep Vein Thrombosis (DVT) Additional Family Medical History / Comment(s): Mother had DVTs in her legs and from this. Father Family Medical History: Cancer Additional Family Medical History / Comment(s): HEART PROBLEMS Medications and Allergies Home Medications Medication Instructions Recorded Confirmed Type Cholecalciferol [Vitamin D3] 1,000 unit PO QAM 01/19/14 06/07/17 History Finasteride 5 mg PO HS 01/19/14 06/07/17 History Nitroglycerin Sl Tabs [Nitrostat] 0.4 mg SL Q5M PRN 01/19/14 06/07/17 History Gabapentin 600 mg PO BID 04/14/15 06/07/17 History amLODIPine [Norvasc] 5 mg PO DAILY 04/14/15 06/07/17 History Ascorbic Acid [Vitamin C] 500 mg PO DAILY@1200 09/20/16 06/07/17 History Aspirin [Adult Low Dose Aspirin EC] 81 mg PO DAILY 09/20/16 06/07/17 History Fluticasone Nasal [place] [Flonase 1 spray EA NOSTRIL BID PRN 09/20/16 06/07/17 History Nasal [place]] Furosemide [Lasix] 20 mg PO QAM 09/20/16 06/07/17 History Quinapril HCl [Accupril] 40 mg PO QAM 09/20/16 06/07/17 History Allopurinol [Zyloprim] 100 mg PO BID 03/29/17 06/07/17 History Hydrocodone/Acetaminophen [[place] 1 tab PO TID PRN 03/29/17 06/07/17 History 10-325] Magnesium Oxide [Mag-Ox] 250 mg PO DAILY 03/29/17 06/07/17 History Simvastatin [Zocor] 20 mg PO HS 03/29/17 06/07/17 History Terazosin [Hytrin] 5 mg PO HS 03/29/17 06/07/17 History Warfarin [Coumadin] 5 mg PO MOWEFR 03/29/17 06/07/17 History Butalb/APAP/Caff 50-325-40Mg 1 tab PO Q6H PRN 06/07/17 06/07/17 History [Fioricet 50-325-40] Carvedilol [Coreg] 12.5 mg PO DAILY 06/07/17 06/07/17 History Memantine [Namenda] 10 mg PO BID 06/07/17 06/07/17 History Warfarin [Coumadin] 2.5 mg PO SUTUTHSA 06/07/17 06/07/17 History Allergies Allergy/AdvReac Type Severity Reaction Status Date / Time alprazolam [From Xanax] Allergy Rash/Hives Verified 06/07/17 11:29 morphine Allergy Rash/Hives Verified 06/07/17 11:29 Penicillins Allergy Unknown Verified 06/07/17 11:29 Childhood Physical Examination - Vital Signs Vital Signs: Vital Signs Temp Pulse Pulse Resp BP BP Pulse Ox 06/08/17 07:00 97.8 F 62 16 144/53 94 L 06/07/17 23:00 96.7 F L 81 16 144/72 94 L 06/07/17 21:34 98.2 F 59 L 18 126/56 94 L 06/07/17 20:14 76 18 140/69 92 L 06/07/17 19:12 67 18 108/53 92 L 06/07/17 18:36 72 18 142/75 06/07/17 17:05 80 18 115/81 94 L 06/07/17 16:00 83 18 136/69 94 L 06/07/17 15:59 79 18 113/69 93 L 06/07/17 14:56 85 18 167/78 99 Intake and Output 06/07/17 06/08/17 06/08/17 22:59 06:59 14:59 Intake Total 800 Balance 800 Intake: Intake, IV Titration 800 Amount Sodium Chloride 0.9% 1, 800 000 ml @ 100 mls/hr IV . Q10H ONE Rx#:[id number] Other: Voiding Method Urinal Urinal Weight 72.5 kg 72.5 kg - Constitutional General appearance: average body habitus, cooperative - EENT EENT: PERRL, mucous membranes moist - Respiratory Respiratory: lungs clear, normal breath sounds - Cardiovascular Cardiovascular: regular rate, normal S1, normal S2 Extremities: no peripheral edema bilaterally - Gastrointestinal Gastrointestinal: normoactive bowel sounds - Integumentary Integumentary: normal - Neurologic Cranial nerve examination: PERRL, V1/V2/V3 grossly intact, face symmetric, tongue midline, intact gag reflex, intact corneal reflex, normal palatal elevation Speech examination: intact Sensorimotor examination: intact Motor examination - right side: 2/5: biceps, triceps, wrist flexion, wrist extension, thread spooler, hip flexors, knee extensors, dorsiflexion, toe extension (EHL) , plantarflexion Motor examination - left side: 4/5: biceps, triceps, wrist flexion, wrist extension, thread spooler, hip flexors, knee extensors, dorsiflexion, toe extension (EHL) , plantarflexion Detailed sensory examination: intact Reflex and gait examination: intact Reflexes: 0: knee, 1+: ankle, bicep, tricep - Musculoskeletal Musculoskeletal: no pain - Psychiatric Psychiatric: mood/affect appropriate, cooperative Results - Laboratory Findings CBC and BMP: 06/07/17 11:40 06/07/17 11:40 Abnormal Lab Findings: Abnormal Labs 06/07/17 06/07/17 06/07/17 11:40 11:40 11:40 Neutrophils # 8.1 H Lymphocytes # 0.8 L PT INR Glucose 117 H Total Creatine Kinase 54 L 06/07/17 11:40 Neutrophils # Lymphocytes # PT 24.2 H INR 2.7 H Glucose Total Creatine Kinase Assessment and Plan (1) Acute encephalopathy Current Visit: Yes Status: Acute Code(s): G93.40 - ENCEPHALOPATHY, UNSPECIFIED SNOMED Code(s): 45405270 (2) Spastic hemiparesis Current Visit: Yes Status: Acute Code(s): G81.10 - SPASTIC HEMIPLEGIA AFFECTING UNSPECIFIED SIDE SNOMED Code(s): 46647868 (3) Muscle cramps Current Visit: Yes Status: Acute Code(s): R25.2 - CRAMP AND SPASM SNOMED Code(s): 85220558 (4) History of ischemic left MCA stroke Current Visit: No Status: Acute Code(s): Z86.73 - PRSNL HX OF TIA (TIA), AND CEREB INFRC W/O RESID DEFICITS SNOMED Code(s): 975417838 Plan: This patient is a 81-year-old right-handed white male who was admitted hospital with altered mental status for 2 days. His caregivers noted a change in the patient and this was his reason for admission to hospital. He was seen in the ER yesterday by Dr. Cabezas. He was sent for a computed tomography scan of the brain which failed to reveal any evidence of new or acute stroke. He does have evidence of a large left MCA stroke which she apparently suffered about 25 years ago. His residual deficit from this stroke is right-sided spastic hemiplegia. Patient was complaining of pain in his left leg on admission and underwent a venous Doppler ultrasound of the left leg which came back negative for DVT. His mental status is shown improvement since admission to hospital. Primary care physician feels he is back to baseline today. Neurologically he is not showing any evidence of recent seizure activity. He will be undergoing a routine EEG and this will be reviewed. The patient has been complaining of symptoms of dizziness. He does have some history of carotid artery disease. He has also undergone coronary artery bypass grafting in the past. We will continue close neurological follow-up for the patient during this admission. His overall prognosis at this time remains guarded. Time with Patient: Greater than 30
[2017-06-09] MEDS: CARVEDILOL 12.5 MG TAB PO SCH (08:33)
[2017-06-09] MEDS: amLODIPine 5 MG TAB PO SCH (08:33)
[2017-06-09] MEDS: MEMANTINE 10 MG TAB PO SCH ×2 (08:33→20:23)
[2017-06-09] MEDS: FUROSEMIDE 20 MG TAB PO SCH (08:33)
[2017-06-09] MEDS: ASPIRIN 81 MG PO SCH (08:33)
[2017-06-09] MEDS: ALLOPURINOL 100 MG TAB PO SCH ×2 (08:34→20:23)
[2017-06-09] MEDS: GABAPENTIN 300 MG CAP PO SCH ×2 (08:34→20:23)
[2017-06-09] MEDS: LISINOPRIL 20 MG TAB PO SCH (08:34)
[2017-06-09] MEDS: LEVOFLOXACIN 500MG-D5W PMX 500 MG in DEXTROSE/WATER 1 100ML.BAG IVPB SCH (13:08)
[2017-06-09] MEDS: MAGNESIUM OXIDE 400 MG TAB PO SCH (13:08)
[2017-06-09] MEDS: ASCORBIC ACID 500 MG TAB PO SCH (13:08)
[2017-06-09] MEDS: CHOLECALCIFEROL 1,000 UNIT TAB PO SCH (13:08)
--- NOTE | 2017-06-09 17:45 | PN ---
PROGRESS NOTE DATE OF SERVICE: 06/09/2017 This 81-year-old gentleman was admitted with change in mental status and persistent left leg pain. The ultrasound was negative for DVT. Patient is feeling cold also at this time. Neurology and Vascular Surgery are following the patient closely. Vascular Surgery recommended outpatient followup. No chest pain. No palpitation. PHYSICAL EXAMINATION: Alert and oriented x3. Pulse 61, blood pressure 149/75, respiration 16, temperature 97.5. Pulse ox is 96% on 3 L. HEENT: Conjunctivae normal. NECK: No jugular venous distention. CARDIOVASCULAR SYSTEM: S1, S2 muffled. RESPIRATORY SYSTEM: Breath sounds diminished at the bases. No rhonchi. No crackles. ABDOMEN: Soft, non-tender. No mass palpable. LEGS: No edema. No swelling. NERVOUS SYSTEM: Higher functions as mentioned earlier. Moves all 4 limbs. No focal motor or sensory deficit. LYMPHATICS: No lymph node palpable in neck, axillae or groin. SKIN: No ulcer, rash, bleeding. LABS: Labs at this time show WBC 10.3, INR 1.7. ASSESSMENT: 1. Change in mental status, possible acute transient ischemic attack. 2. Feeling cold; rule out sepsis. 3. Left lower leg pain with peripheral vascular disease. 4. History of coronary artery disease, coronary artery bypass grafting. 5. Right leg above-knee amputation. 6. Bowel resection with colostomy for colon cancer. 7. Peripheral vascular disease with femoral bypass right. 8. Seizure disorder. 9. Hypertension. 10.Carotid artery disease. 11.History of paroxysmal atrial fibrillation. 12.History of deep venous thrombosis. RECOMMENDATIONS AND DISCUSSION: I recommend to continue current medication, continue with symptomatic treatment, monitor closely. I would also recommend repeat labs. I would also recommend lactic acid and empiric antibiotics. The prognosis is guarded because of multiple complex medical issues. Discussed with the patient. Further recommendations to follow. MMODL / IJN: [id number] / [email or web address]
[2017-06-09] MEDS: WARFARIN 2.5 MG TAB PO SCH (18:15)
[2017-06-09] MEDS: ATORVASTATIN 10 MG TAB PO SCH (20:23)
[2017-06-09] MEDS: DOXAZOSIN 4 MG TAB PO SCH (20:23)
[2017-06-09] MEDS: FINASTERIDE 5 MG TAB PO SCH (20:24)
--- NOTE | 2017-06-09 21:51 | EEG ---
ELECTROENCEPHALOGRAM REPORT DATE OF EE06/08/2017. REFERRING PHYSICIAN: Dr. Krish Champion. CONSULTING INTERPRETING PHYSICIAN: Dr. aSnjay Michelle. INDICATION FOR EXAMINATION: This patient is a 81-year-old male with history of altered mental status and past history of seizure disorder. Patient is not on any anticonvulsant medication. AGE: 81. EEG FINDINGS: A routine 21 channel awake digital EEG recording was accomplished utilizing the 10-20 international system with bipolar and referential montages. The background activity in the most alert resting state consists of a low to medium amplitude, poorly-developed and poorly-sustained 6-7 Hz activity over the posterior head regions. This posterior rhythm attenuates to eye opening. There was an excessive amount of muscle and movement artifact seen throughout the tracing. Hyperventilation was not performed. Photic stimulation and flash frequencies of 2-30 Hz produced a minimal occipital driving response. No epileptiform discharges were seen. IMPRESSION: This EEG is moderately abnormal in a diffuse fashion due to slowing of the EEG background. The EEG failed to reveal any focal, lateralized or epileptiform abnormalities. Clinical correlation is recommended. MMODL / IJN: [id number] /
--- NOTE | 2017-06-09 23:53 | P.PN ---
Subjective Progress Note Date: 06/09/17 This patient is a 81-year-old male who was seen yesterday neurology consultation for altered mental status. He has evidence suggesting a possible metabolic encephalopathy which seems to have resolved. He was also being evaluated for known history of left leg pain and was seen by vascular surgery today. He underwent a venous Doppler ultrasound which came back negative for DVT in his left leg. 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 He has had a left fem-pop bypass surgery in the past. He was seen by vascular surgery today and the patient has been followed by vascular surgery for peripheral vascular disease for many years. At this time no surgical intervention is recommended. He is to continue with pain management and close observation. Patient otherwise seems to be near baseline in terms of his mental status. Blood pressure seems to be slightly elevated. He has a history of remote seizure disorder in the past. Underwent routine EEG today which will be reviewed. His EEG did reveal diffuse slowing. The EEG failed to reveal any active seizure focus. Patient was evaluated by vascular surgery and as noted above is not a candidate for any surgical intervention at this time. Patient is able to follow simple commands today. His overall condition appears to be consistent with an acute encephalopathy which is slowly improving. We will continue close neurological follow-up for the patient. His overall prognosis remains guarded. Objective - Vital Signs Vital signs: Vital Signs Temp 97.5 F L 06/09/17 15:00 Pulse 61 06/09/17 15:00 Resp 16 06/09/17 15:00 BP 149/75 06/09/17 15:00 Pulse Ox 96 06/09/17 15:00 Intake & Output 06/08/17 06/09/17 06/09/17 18:59 06:59 18:59 Intake Total 800 565 Output Total 1170 Balance 800 565 -1170 Intake: IV 225 0.9 225 Intake, IV Titration 800 Amount Sodium Chloride 0.9% 1, 800 000 ml @ 100 mls/hr IV . Q10H ONE Rx#:[id number] Oral 340 Output: Urine 1120 Stool 50 Other: Voiding Method Urinal Urinal # Voids 3 1 # Bowel Movements 3 - Exam Physical examination: PHYSICAL EXAMINATION: Patient is resting comfortably in bed. VITAL SIGNS: Blood pressure is [140/75]. Heart rate is [61]. Respiration is [16] . Temperature is [97.5]. HEENT: Head is atraumatic, neck is supple, there were no carotid bruits. CHEST: Lungs are clear to auscultation and percussion. CARDIAC: S1, S2 normal rate and rhythm. There is no murmur. ABDOMEN: Soft and nontender. Bowel sounds are present. EXTREMITIES: There is no pedal edema. Peripheral pulses are present. Neurological examination: Patient neurological examination is unchanged from yesterday. - Labs CBC & Chem 7: 06/07/17 11:40 06/07/17 11:40 Labs: Microbiology - Last 24 Hours (Table) 06/07/17 11:40 Blood Culture - Preliminary Blood No Growth after 48 hours Assessment and Plan (1) Acute encephalopathy Current Visit: Yes Status: Acute Code(s): G93.40 - ENCEPHALOPATHY, UNSPECIFIED SNOMED Code(s): 83328079 (2) Spastic hemiparesis Current Visit: Yes Status: Acute Code(s): G81.10 - SPASTIC HEMIPLEGIA AFFECTING UNSPECIFIED SIDE SNOMED Code(s): 65759626 (3) Muscle cramps Current Visit: Yes Status: Acute Code(s): R25.2 - CRAMP AND SPASM SNOMED Code(s): 30656530 (4) History of ischemic left MCA stroke Current Visit: No Status: Acute Code(s): Z86.73 - PRSNL HX OF TIA (TIA), AND CEREB INFRC W/O RESID DEFICITS SNOMED Code(s): 201571096 Plan: This patient is a 81-year-old male being evaluated for altered mental status and mild encephalopathy. He is doing much better today in terms of his mental status. He was seen by vascular surgery were not recommending any surgical intervention at this time. They recommend pain management for the patient. Patient has a remote history of seizures and did undergo routine EEG which will be reviewed. His EEG revealed evidence of diffuse slowing consistent with a encephalopathy. Patient is showing slight improvement in his overall mental status. Anticipate discharge for this patient soon as long as he continues to show progress. We will continue close neurological follow-up for the patient. He does not seem to show any focal changes today on examination. His overall prognosis at this time remains guarded.
[2017-06-10 08:32] LABS: Basophils % (A) 0 %; Eosinophils # (A) 0.5 k/uL (0-0.7); Eosinophils % (A) 6 %; HCT 40.7 % (39.0-53.0); HGB 13.7 gm/dL (13.0-17.5); Lymphocytes # (A) 0.8 k/uL (1.0-4.8); Lymphocytes % (A) 10 %; MCHC 33.6 g/dL (31.0-37.0); MCV 89.3 fL (80.0-100.0); Mean Platelet Volume 8.2; Monocytes # (A) 0.5 k/uL (0-1.0); Monocytes % (A) 6 %; Neutrophils # (A) 6.7 k/uL (1.3-7.7); Neutrophils % (A) 77 %; Platelet Count 142 k/uL (150-450); RBC 4.56 m/uL (4.30-5.90); RDW 13.3 % (11.5-15.5); WBC 8.7 k/uL (3.8-10.6)
[2017-06-10 08:39] VITALS: BP 143/67; PULSE 62; RESP 16; TEMP 97.5
[2017-06-10 08:39] LABS: INR 4.7 (<1.2); Prothrombin Time 42.5 sec (9.0-12.0)
[2017-06-10 08:51] LABS: Anion Gap 10 mmol/L; Blood Urea Nitrogen 13 mg/dL (9-20); Calcium 9.1 mg/dL (8.4-10.2); Carbon Dioxide 23 mmol/L (22-30); Chloride 110 mmol/L (98-107); Glucose 92 mg/dL (74-99); Potassium 4.1 mmol/L (3.5-5.1); Sodium 143 mmol/L (137-145)
[2017-06-10] MEDS: amLODIPine 5 MG TAB PO SCH (10:18)
[2017-06-10] MEDS: GABAPENTIN 300 MG CAP PO SCH (10:18)
[2017-06-10] MEDS: MEMANTINE 10 MG TAB PO SCH (10:18)
[2017-06-10] MEDS: LISINOPRIL 20 MG TAB PO SCH (10:19)
[2017-06-10] MEDS: FUROSEMIDE 20 MG TAB PO SCH (10:19)
[2017-06-10] MEDS: ASPIRIN 81 MG PO SCH (10:19)
[2017-06-10] MEDS: ALLOPURINOL 100 MG TAB PO SCH (10:19)
[2017-06-10] MEDS: CARVEDILOL 12.5 MG TAB PO SCH (10:19)
[2017-06-10] MEDS: ASCORBIC ACID 500 MG TAB PO SCH (12:54)
[2017-06-10] MEDS: CHOLECALCIFEROL 1,000 UNIT TAB PO SCH (12:54)
[2017-06-10] MEDS: MAGNESIUM OXIDE 400 MG TAB PO SCH (12:54)
[2017-06-10] MEDS: LEVOFLOXACIN 500MG-D5W PMX 500 MG in DEXTROSE/WATER 1 100ML.BAG IVPB SCH (12:55)
--- NOTE | 2017-06-11 02:52 | DS ---
DISCHARGE SUMMARY DATE OF SERVICE: 06/10/2017 FINAL DIAGNOSES: 1. Change in mental status, possible acute transient ischemic attack. 2. Sepsis ruled out. 3. Left lower leg pain. Possibly peripheral vascular disease. 4. History of coronary artery disease/coronary artery bypass grafting. 5. Right leg above knee amputation history. 6. History of bowel resection with colostomy for colon cancer. 7. Peripheral vascular disease and bypass. 8. History of seizure disorder. 9. Hypertension. 10.History of coronary artery disease. 11.History of paroxysmal atrial fibrillation. 12.History of deep vein thrombosis. DISCHARGE DISPOSITION: The patient is being discharged in stable condition with guarded prognosis. HISTORY OF PRESENT ILLNESS: This 81-year-old gentleman with past medical history of multiple medical problems was admitted with change in mental status, multiple medical problems, treated symptomatically. Neurology saw the patient and the patient was evaluated. CT scan of the brain showed age-related changes otherwise. On exam, vitals are stable. Cardiovascular system: S1, S2. Abdomen soft. Nervous system: No focal deficits. The cultures are negative at this time. The patient is being discharged in stable condition with guarded prognosis. DISCHARGE ADVICE MEDICATIONS: 1. Discharge diet is cardiac diet. 2. Activity limited until followup. 3. Follow up with Dr. Krish Champion in 2-3 days. 4. Follow up with neurology as advised. 5. Follow up with Dr. Alcantara as advised for peripheral vascular disease. MEDICATIONS: 1. Zyloprim 100 mg p.o. b.i.d. 2. Norvasc 5 mg p.o. 3. Vitamin C 500 mg daily. 4. Ecotrin 81 mg p.o. daily. 5. Butalbital 1 tablet every 6 hours p.r.n. 6. Coreg 12.5 mg p.o. daily. 7. Vitamin D3 1000 daily. 8. Finasteride 5 mg p.o. q.h.s. 9. Flonase 1 spray daily. 10.Lasix 20 mg q.a.m. 11.Gabapentin 600 mg p.o. b.i.d. 12.[place] 1 tablet p.o. t.i.d. p.r.n. 13.Levaquin 250 mg p.o. daily for 3 days. 14.Magnesium oxide 250 mg p.o. daily. 15.Namenda 10 mg p.o. b.i.d. 16.Nitrostat 0.4 sublingual p.r.n. 17.Accupril 40 mg q.a.m. 18.Zocor 20 mg q.h.s. 19.Hytrin 5 mg p.o. q.h.s. Once again, the patient is being discharged in stable condition with guarded prognosis. MMODL / IJN: [id number] /
== END 2017-06-10 14:15 | disposition home or self-care (01) ==
LOC: EC 11:10 → 5MS5E 17:35
PROVIDERS: ADMIT Family Medicine; ATTEND Family Medicine
DX: R41.82 Altered mental status, unspecified (principal); M79.662 Pain in left lower leg; I73.9 Peripheral vascular disease, unspecified; I65.29 Occlusion and stenosis of unspecified carotid artery; G62.9 Polyneuropathy, unspecified; I25.10 Atherosclerotic heart disease of native coronary artery without angina pectoris; F03.90 Unspecified dementia, unspecified severity, without behavioral disturbance, psychotic disturbance, mood disturbance, and anxiety; I69.351 Hemiplegia and hemiparesis following cerebral infarction affecting right dominant side; G40.909 Epilepsy, unspecified, not intractable, without status epilepticus; I10 Essential (primary) hypertension; I48.0 Paroxysmal atrial fibrillation; E78.5 Hyperlipidemia, unspecified; N42.9 Disorder of prostate, unspecified; M10.9 Gout, unspecified; Z95.820 Peripheral vascular angioplasty status with implants and grafts; Z95.1 Presence of aortocoronary bypass graft; Z89.611 Acquired absence of right leg above knee; Z93.3 Colostomy status; Z90.49 Acquired absence of other specified parts of digestive tract; Z85.038 Personal history of other malignant neoplasm of large intestine; Z86.718 Personal history of other venous thrombosis and embolism; Z86.14 Personal history of Methicillin resistant Staphylococcus aureus infection; Z87.891 Personal history of nicotine dependence; Z79.01 Long term (current) use of anticoagulants; Z79.82 Long term (current) use of aspirin; Z79.51 Long term (current) use of inhaled steroids; Z79.899 Other long term (current) drug therapy; Z88.0 Allergy status to penicillin; Z88.5 Allergy status to narcotic agent; Z88.8 Allergy status to other drugs, medicaments and biological substances; Z80.9 Family history of malignant neoplasm, unspecified; Z82.49 Family history of ischemic heart disease and other diseases of the circulatory system
CPT/HCPCS: 96376 ×3; 96361 ×12; 99285 ×2; 87040 ×3; 96365; 36415; 95819; 80053; 80048; 84443; 82550; 82553; 83605; 84484; 85025 ×2; 85610 ×2; 85730; 81003; 87086; 71046; 93971; 70450; G0378 ×4; A4425; S0138 ×3; J1956; J3010

== ENCOUNTER 2017-08-16 11:28 | Inpatient (IN) | payer MEDICARE ==
--- NOTE | 2017-08-16 11:45 | ED ---
General Adult HPI - General Stated complaint: Poss Stroke Time Seen by Provider: 08/16/17 11:30 Source: patient, EMS, RN notes reviewed, Caregiver Mode of arrival: EMS Limitations: altered mental status, physical limitation - History of Present Illness Initial comments: Patient is a pleasant 81-year-old male presenting to the emergency department for change in mental status. Patient does have history of stroke. Patient is a poor historian. Onset of symptoms is unclear. EMS believes symptoms may have started this morning. Other report question symptoms starting last night. Air Defence Officer arrives shortly after patient arrives and believes symptoms may have been occurring over several days to a week. Patient states he does not feel right. Air Defence Officer states he is slightly more confused than normal however not too far from his baseline. She states patient is normally not oriented to year. Patient has known carotid stenosis. - Related Data Home Medications Medication Instructions Recorded Confirmed Cholecalciferol [Vitamin D3] 1,000 unit PO DAILY 01/19/14 08/16/17 Finasteride 5 mg PO HS 01/19/14 08/16/17 Nitroglycerin Sl Tabs [Nitrostat] 0.4 mg SL Q5M PRN 01/19/14 08/16/17 Gabapentin 600 mg PO BID@1200,2100 04/14/15 08/16/17 amLODIPine [Norvasc] 5 mg PO HS 04/14/15 08/16/17 Ascorbic Acid [Vitamin C] 500 mg PO DAILY 09/20/16 08/16/17 Aspirin [Adult Low Dose Aspirin EC] 81 mg PO DAILY@1200 09/20/16 08/16/17 Fluticasone Nasal [place] [Flonase 1 spray EA NOSTRIL BID PRN 09/20/16 08/16/17 Nasal [place]] Furosemide [Lasix] 20 mg PO DAILY 09/20/16 08/16/17 Quinapril HCl [Accupril] 40 mg PO QAM 09/20/16 08/16/17 Allopurinol [Zyloprim] 100 mg PO BID PRN 03/29/17 08/16/17 Hydrocodone/Acetaminophen [[place] 1 tab PO TID PRN 03/29/17 08/16/17 10-325] Magnesium Oxide [Mag-Ox] 250 mg PO HS 03/29/17 08/16/17 Simvastatin [Zocor] 20 mg PO HS 03/29/17 08/16/17 Terazosin [Hytrin] 5 mg PO HS 03/29/17 08/16/17 Memantine [Namenda] 10 mg PO BID 06/07/17 08/16/17 Meclizine [Antivert] 12.5 mg PO BID 08/16/17 08/16/17 Niacin [Niacin ER] 750 mg PO DAILY 08/16/17 08/16/17 Allergies Allergy/AdvReac Type Severity Reaction Status Date / Time alprazolam [From Xanax] Allergy Rash/Hives Verified 08/16/17 12:08 morphine Allergy Rash/Hives Verified 08/16/17 12:08 Penicillins Allergy Unknown Verified 08/16/17 12:08 Childhood Review of Systems ROS Statement: Those systems with pertinent positive or pertinent negative responses have been documented in the HPI. ROS Other: All systems not noted in ROS Statement are negative. Constitutional: Denies: fever Eyes: Denies: eye pain ENT: Denies: ear pain Respiratory: Denies: cough Cardiovascular: Denies: chest pain Endocrine: Denies: fatigue Gastrointestinal: Denies: abdominal pain Genitourinary: Denies: dysuria Musculoskeletal: Denies: back pain Skin: Denies: rash Neurological: Reports: confusion. Denies: weakness 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, palpitations, History of Any Multi-Drug Resistant Organisms: MRSA Date of last positivie culture/infection: 2012 MDRO Source:: rt leg Past Surgical History: Bowel Resection, Coronary Bypass/CABG, Heart Catheterization, Orthopedic Surgery, Tonsillectomy Additional Past Surgical History / Comment(s): 1990 CABG, rt above knee amputation , bowel resection with colostomy, Angiograms, lt fem bypass and rt leg stent, bilateral cataracts removed with lens implants, L foot toe surgery, surgery to reattach left little finger, rt eyelid surgery Past Anesthesia/Blood Transfusion Reactions: No Reported Reaction Past Psychological History: No Psychological Hx Reported Additional Psychological History / Comment(s): . Smoking Status: Former smoker Past Alcohol Use History: None Reported Additional Past Alcohol Use History / Comment(s): QUIT SMOKING 22 YEARS AGO - SMOKED A PIPE Past Drug Use History: None Reported - Past Family History Mother Family Medical History: Deep Vein Thrombosis (DVT) Additional Family Medical History / Comment(s): Mother had DVTs in her legs and from this. Father Family Medical History: Cancer Additional Family Medical History / Comment(s): HEART PROBLEMS General Exam General appearance: alert, in no apparent distress Head exam: Present: atraumatic Eye exam: Present: normal appearance, PERRL ENT exam: Present: normal oropharynx Neck exam: Present: normal inspection Respiratory exam: Present: normal lung sounds bilaterally Cardiovascular Exam: Present: regular rate, normal rhythm GI/Abdominal exam: Present: soft. Absent: tenderness Extremities exam: Present: other (Right AKA) Neurological exam: Present: alert, CN II-XII intact (Except right facial.) Expanded Neurological exam: Present: protecting the airway Patient oriented to: Present: person, place. Absent: time Motor strength exam: RUE: 4, LUE: 5, LLE: 5 Eye Response: (4) open spontaneously Motor Response: (6) obeys commands Verbal Response: (4) confused conversation Psychiatric exam: Present: normal affect, normal mood Skin exam: Present: normal color Course Vital Signs 08/16/17 08/16/17 11:50 13:35 Temperature 98.4 F Pulse Rate 82 85 Respiratory 18 18 Rate Blood Pressure 100/52 126/60 O2 Sat by Pulse 97 97 Oximetry EKG Findings - EKG Comments: EKG Findings:: Normal sinus rhythm 82. ME 176. QRS 154. QT 440. QTc 514. Left axis. Right bundle branch block. Left anterior fascicular block. Nonspecific ST-T. Medical Decision Making - Medical Decision Making Patient reevaluated and unchanged. Case was discussed in detail with Dr. Paige , who will admit for Dr. Champion. - Lab Data Result diagrams: 08/16/17 12:15 08/16/17 12:15 Lab Results 08/16/17 08/16/17 08/16/17 Range/Units 12:15 12:15 12:15 WBC 7.0 (3.8-10.6) k/uL RBC 4.75 (4.30-5.90) m/uL Hgb 14.1 (13.0-17.5) gm/dL Hct 41.9 (39.0-53.0) % MCV 88.3 (80.0-100.0) fL MCH 29.6 (25.0-35.0) pg MCHC 33.5 (31.0-37.0) g/dL RDW 15.1 (11.5-15.5) % Plt Count 161 (150-450) k/uL Neutrophils % 75 % Lymphocytes % 12 % Monocytes % 7 % Eosinophils % 3 % Basophils % 0 % Neutrophils # 5.3 (1.3-7.7) k/uL Lymphocytes # 0.8 L (1.0-4.8) k/uL Monocytes # 0.5 (0-1.0) k/uL Eosinophils # 0.2 (0-0.7) k/uL Basophils # 0.0 (0-0.2) k/uL PT (9.0-12.0) sec INR (<1.2) APTT (22.0-30.0) sec Sodium 143 (137-145) mmol/L Potassium 4.0 (3.5-5.1) mmol/L Chloride 110 H (98-107) mmol/L Carbon Dioxide 19 L (22-30) mmol/L Anion Gap 14 mmol/L BUN 27 H (9-20) mg/dL Creatinine 0.86 (0.66-1.25) mg/dL Est GFR (CKD-EPI)AfAm >90 (>60 ml/min/1.73 sqM) Est GFR (CKD-EPI)NonAf 83 (>60 ml/min/1.73 sqM) Glucose 134 H (74-99) mg/dL POC Glucose (mg/dL) (75-99) mg/dL POC Glu Records Associate ID Calcium 9.0 (8.4-10.2) mg/dL Magnesium 1.6 (1.6-2.3) mg/dL Total Bilirubin 0.6 (0.2-1.3) mg/dL AST 23 (17-59) U/L ALT 38 (21-72) U/L Alkaline Phosphatase 70 (38-126) U/L Total Creatine Kinase 85 (55-170) U/L CK-MB (CK-2) 1.9 (0.0-2.4) ng/mL CK-MB (CK-2) Rel Index 2.2 Troponin I <0.012 (0.000-0.034) ng/mL Total Protein 6.8 (6.3-8.2) g/dL Albumin 3.9 (3.5-5.0) g/dL Urine Color Urine Appearance (Clear) Urine pH (5.0-8.0) Ur Specific [place] (1.001-1.035) Urine Protein (Negative) Urine Glucose (UA) (Negative) Urine Ketones (Negative) Urine Blood (Negative) Urine Nitrite (Negative) Urine Bilirubin (Negative) Urine Urobilinogen (<2.0) mg/dL Ur Leukocyte Esterase (Negative) Urine WBC (0-5) /hpf Ur Squamous Epith Cells (0-4) /hpf Urine Bacteria (None) /hpf Hyaline Casts (0-2) /lpf Urine Mucus (None) /hpf 08/16/17 08/16/17 08/16/17 Range/Units 12:15 12:24 13:35 WBC (3.8-10.6) k/uL RBC (4.30-5.90) m/uL Hgb (13.0-17.5) gm/dL Hct (39.0-53.0) % MCV (80.0-100.0) fL MCH (25.0-35.0) pg MCHC (31.0-37.0) g/dL RDW (11.5-15.5) % Plt Count (150-450) k/uL Neutrophils % % Lymphocytes % % Monocytes % % Eosinophils % % Basophils % % Neutrophils # (1.3-7.7) k/uL Lymphocytes # (1.0-4.8) k/uL Monocytes # (0-1.0) k/uL Eosinophils # (0-0.7) k/uL Basophils # (0-0.2) k/uL PT 25.4 H (9.0-12.0) sec INR 2.8 H (<1.2) APTT 24.2 (22.0-30.0) sec Sodium (137-145) mmol/L Potassium (3.5-5.1) mmol/L Chloride (98-107) mmol/L Carbon Dioxide (22-30) mmol/L Anion Gap mmol/L BUN (9-20) mg/dL Creatinine (0.66-1.25) mg/dL Est GFR (CKD-EPI)AfAm (>60 ml/min/1.73 sqM) Est GFR (CKD-EPI)NonAf (>60 ml/min/1.73 sqM) Glucose (74-99) mg/dL POC Glucose (mg/dL) 138 H (75-99) mg/dL POC Glu Records Associate ID [place] Calcium (8.4-10.2) mg/dL Magnesium (1.6-2.3) mg/dL Total Bilirubin (0.2-1.3) mg/dL AST (17-59) U/L ALT (21-72) U/L Alkaline Phosphatase (38-126) U/L Total Creatine Kinase (55-170) U/L CK-MB (CK-2) (0.0-2.4) ng/mL CK-MB (CK-2) Rel Index Troponin I (0.000-0.034) ng/mL Total Protein (6.3-8.2) g/dL Albumin (3.5-5.0) g/dL Urine Color Yellow Urine Appearance Clear (Clear) Urine pH 5.5 (5.0-8.0) Ur Specific [place] 1.012 (1.001-1.035) Urine Protein Negative (Negative) Urine Glucose (UA) Negative (Negative) Urine Ketones Trace H (Negative) Urine Blood Negative (Negative) Urine Nitrite Negative (Negative) Urine Bilirubin Negative (Negative) Urine Urobilinogen <2.0 (<2.0) mg/dL Ur Leukocyte Esterase Trace H (Negative) Urine WBC 3 (0-5) /hpf Ur Squamous Epith Cells 1 (0-4) /hpf Urine Bacteria Rare H (None) /hpf Hyaline Casts 5 H (0-2) /lpf Urine Mucus Rare H (None) /hpf - Radiology Data Radiology results: report reviewed (Computed tomography scan of the brain shows remote ischemic changes without definite acute intercranial hemorrhage or mass effect.), image reviewed (Chest x-ray shows no acute process.) Disposition Clinical Impression: Altered mental status Disposition: ADMITTED IP TO THIS HOSP Is patient prescribed a controlled substance at d/c from ED?: No Referrals: Krish Champion MD [Primary Care Provider] - 1-2 days Decision Time: 14:42
[2017-08-16 12:28] LABS: Glucose,Whole Blood 138 mg/dL (75-99)
[2017-08-16 12:47] LABS: INR 2.8 (<1.2); Partial Thromboplastin Time 24.2 sec (22.0-30.0); Prothrombin Time 25.4 sec (9.0-12.0)
[2017-08-16 12:48] LABS: Basophils % (A) 0 %; Eosinophils # (A) 0.2 k/uL (0-0.7); Eosinophils % (A) 3 %; HCT 41.9 % (39.0-53.0); HGB 14.1 gm/dL (13.0-17.5); Lymphocytes # (A) 0.8 k/uL (1.0-4.8); Lymphocytes % (A) 12 %; MCH 29.6 pg (25.0-35.0); MCHC 33.5 g/dL (31.0-37.0); MCV 88.3 fL (80.0-100.0); Mean Platelet Volume 7.3; Monocytes # (A) 0.5 k/uL (0-1.0); Monocytes % (A) 7 %; Neutrophils # (A) 5.3 k/uL (1.3-7.7); Neutrophils % (A) 75 %; Platelet Count 161 k/uL (150-450); RBC 4.75 m/uL (4.30-5.90); RDW 15.1 % (11.5-15.5)
--- NOTE | 2017-08-16 12:56 | CT ---
EXAMINATION TYPE: CT brain wo con DATE OF EXAM: 08/16/2017 COMPARISON: NONE HISTORY: Altered mental status. CT DLP: 1121 mGycm Automated exposure control for dose reduction was used. FINDINGS: The ventricles, basal cisterns and sulci overlying the cerebral convexities demonstrate moderate enla rgement. Large left MCA territory remote infarct. Ex vacuo dilatation of the left lateral ventricle a nd left frontal horn. Calcification within the area of previous infarct is stable. There is no evidence for intracranial hemorrhage or sulcal effacement. There is decreased attenuation about the periventricular white matter and deep white matter of both c erebral hemispheres, compatible with chronic small vessel ischemia. Differential diagnosis does inclu de demyelination. No mass effects are seen. No midline shift. Osseous calvarium is intact Intracranial atherosclerotic changes noted. Nasal septal deviation with changes of chronic sinusitis noted. IMPRESSION: DEGENERATIVE AND SUSPECTED REMOTE ISCHEMIC CHANGE WITH NO DEFINITE EVIDENCE OF ACUTE INTRACRANIAL HEM ORRHAGE OR MASS EFFECT.
[2017-08-16 12:57] LABS: ALT 38 U/L (21-72); AST 23 U/L (17-59); Albumin 3.9 g/dL (3.5-5.0); Alkaline Phosphatase 70 U/L (38-126); Anion Gap 14 mmol/L; Blood Urea Nitrogen 27 mg/dL (9-20); Carbon Dioxide 19 mmol/L (22-30); Chloride 110 mmol/L (98-107); Glucose 134 mg/dL (74-99); Magnesium 1.6 mg/dL (1.6-2.3); Sodium 143 mmol/L (137-145); Total Bilirubin 0.6 mg/dL (0.2-1.3); Total Protein 6.8 g/dL (6.3-8.2)
--- NOTE | 2017-08-16 13:01 | XR ---
EXAMINATION TYPE: XR chest 2V DATE OF EXAM: 08/16/2017 COMPARISON: Prior chest x-ray 06/07/2017 HISTORY: Altered mental status TECHNIQUE: Frontal and lateral views of the chest are obtained. FINDINGS: There is no focal air space opacity, pleural effusion, or pneumothorax seen. The cardiac silhouette size is within normal limits. The patient is post median sternotomy. Aorta is dense. Kaylan ent is rotated. Suspect there are calcified pleural plaques as on prior. There are overlying cardiac leads. The osseous structures are intact. IMPRESSION: No acute cardiopulmonary process.
[2017-08-16 13:03] LABS: Creatine Kinase 85 U/L (55-170)
[2017-08-16 13:17] LABS: Creatine Kinase MB 1.9 ng/mL (0.0-2.4); Troponin I <0.012 ng/mL (0.000-0.034)
[2017-08-16 13:51] LABS: Appearance,Urine Clear (Clear); Bacteria,Urine Rare /hpf; Bilirubin,Urine Negative (Negative); Blood,Urine Negative (Negative); Color,Urine Yellow; Glucose,Urine (UA) Negative (Negative); Hyaline Casts,Urine 5 /lpf (0-2); Ketones,Urine Trace (Negative); Leukocyte Esterase,Urine Trace (Negative); Mucus,Urine Rare /hpf; Nitrite,Urine Negative (Negative); PH, Urine 5.5 (5.0-8.0); Protein,Urine Negative (Negative); Specific Gravity,Urine 1.012 (1.001-1.035); Squamous Epithelial Cell,Urine 1 /hpf (0-4); Urobilinogen,Urine <2.0 mg/dL (<2.0); WBC,Urine 3 /hpf (0-5)
[2017-08-16] MEDS ORDERED: ASPIRIN 325 MG TAB PO STA (14:42)
[2017-08-16 16:49] LABS: Glucose,Whole Blood 110 mg/dL (75-99)
[2017-08-16] MEDS ORDERED: HYDROcodone/APAP 10-325MG 1 EACH TAB PO PRN (19:55)
[2017-08-16 20:47] LABS: Glucose,Whole Blood 150 mg/dL (75-99)
[2017-08-16] MEDS: SODIUM CHLORIDE 0.9% 1,000 ML IV SCH (20:52)
[2017-08-16] MEDS: amLODIPine 5 MG TAB PO SCH (20:52)
[2017-08-16] MEDS: MECLIZINE 12.5 MG TAB PO SCH (20:52)
[2017-08-16] MEDS: MEMANTINE 10 MG TAB PO SCH (20:52)
[2017-08-16] MEDS: ATORVASTATIN 10 MG TAB PO SCH (20:52)
[2017-08-16] MEDS: FINASTERIDE 5 MG TAB PO SCH (20:52)
[2017-08-16] MEDS: GABAPENTIN 300 MG CAP PO SCH (20:52)
--- NOTE | 2017-08-17 01:05 | P.HPIM ---
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 Patient is a poor historian. Patient does have caregiver at home and noticed patient is confused and is has been having shaking movements which has been occurring several days to a week. As per the caregiver patient does not feel right and has been slightly confused from his baseline. Patient was brought to the hospital for further evaluation. Patient does not have any recent illnesses. No fever no chills. No cough or sputum production. No nausea vomiting or abdominal pain. No sick contacts otherwise at home. No bladder or bowel incontinence. CT head showed remote ischemic changes. No acute process noted. Chest x-ray showed no acute process EKG showed normal sinus rhythm UA negative for infection Review of Systems Constitutional: Patient denies any fever or chills . No generalized weakness or weight loss. Abdomen: Patient denied nausea vomiting and diarrhea and abdominal pain. Cardiovascular: Patient denies any chest pain or short of breath no palpitations. Respiratory: patient denied any cough is from production. No shortness of breath Neurologic: Patient denied any numbness or tingling .. Patient does have left frontal headaches Complete review of systems could not be obtained from the patient Past Medical History Past Medical History: Coronary Artery Disease (CAD), Cancer, CVA/TIA, Deep Vein Thrombosis (DVT), Hyperlipidemia, Hypertension, Memory Impairment, Prostate Disorder, Seizure Disorder, Skin Disorder, Vascular Disorder Additional Past Medical History / Comment(s): 1990 CVA with R sided weakness, uses w/c 1990 seizure, hx colon cancer , DVTs in bilateral legs, PVD-neuropathy , hx cellulitis lower legs, gout R foot toes, occipital neuritis, headaches and dizziness from blocked carotid arteries, palpitations, short term memory problems History of Any Multi-Drug Resistant Organisms: MRSA Date of last positivie culture/infection: 2012 MDRO Source:: rt leg Past Surgical History: Bowel Resection, Coronary Bypass/CABG, Heart Catheterization, Orthopedic Surgery, Tonsillectomy Additional Past Surgical History / Comment(s): 1990 CABG, rt above knee amputation , bowel resection with colostomy, Angiograms, lt fem bypass and rt leg stent, bilateral cataracts removed with lens implants, L foot toe surgery, surgery to reattach left little finger, rt eyelid surgery Past Anesthesia/Blood Transfusion Reactions: No Reported Reaction Smoking Status: Former smoker - Past Family History Mother Family Medical History: Deep Vein Thrombosis (DVT) Additional Family Medical History / Comment(s): Mother had DVTs in her legs and from this. Father Family Medical History: Cancer Additional Family Medical History / Comment(s): HEART PROBLEMS Medications and Allergies Home Medications Medication Instructions Recorded Confirmed Type Cholecalciferol [Vitamin D3] 1,000 unit PO DAILY 01/19/14 08/16/17 History Finasteride 5 mg PO HS 01/19/14 08/16/17 History Nitroglycerin Sl Tabs [Nitrostat] 0.4 mg SL Q5M PRN 01/19/14 08/16/17 History Gabapentin 600 mg PO BID@1200,2100 04/14/15 08/16/17 History amLODIPine [Norvasc] 5 mg PO HS 04/14/15 08/16/17 History Ascorbic Acid [Vitamin C] 500 mg PO DAILY 09/20/16 08/16/17 History Aspirin [Adult Low Dose Aspirin EC] 81 mg PO DAILY@1200 09/20/16 08/16/17 History Fluticasone Nasal [place] [Flonase 1 spray EA NOSTRIL BID PRN 09/20/16 08/16/17 History Nasal [place]] Furosemide [Lasix] 20 mg PO DAILY 09/20/16 08/16/17 History Quinapril HCl [Accupril] 40 mg PO QAM 09/20/16 08/16/17 History Allopurinol [Zyloprim] 100 mg PO BID PRN 03/29/17 08/16/17 History Hydrocodone/Acetaminophen [[place] 1 tab PO TID PRN 03/29/17 08/16/17 History 10-325] Magnesium Oxide [Mag-Ox] 250 mg PO HS 03/29/17 08/16/17 History Simvastatin [Zocor] 20 mg PO HS 03/29/17 08/16/17 History Terazosin [Hytrin] 5 mg PO HS 03/29/17 08/16/17 History Memantine [Namenda] 10 mg PO BID 06/07/17 08/16/17 History Meclizine [Antivert] 12.5 mg PO BID 08/16/17 08/16/17 History Niacin [Niacin ER] 750 mg PO DAILY 08/16/17 08/16/17 History Allergies Allergy/AdvReac Type Severity Reaction Status Date / Time alprazolam [From Xanax] Allergy Rash/Hives Verified 08/16/17 12:08 morphine Allergy Rash/Hives Verified 08/16/17 12:08 Penicillins Allergy Unknown Verified 08/16/17 12:08 Childhood Physical Exam Vitals: Vital Signs Temp Pulse Pulse Resp BP BP Pulse Ox 08/16/17 16:59 77 18 08/16/17 15:40 97.2 F L 77 18 136/61 96 08/16/17 14:57 97.6 F 87 18 143/63 99 08/16/17 13:35 85 18 126/60 97 08/16/17 11:50 98.4 F 82 18 100/52 97 Intake and Output 08/16/17 08/16/17 08/16/17 06:59 14:59 22:59 Other: Weight 77.111 kg PHYSICAL EXAMINATION: Patient is lying in the bed comfortably, no acute distress, awake alert and orientedx2.. HEENT: Normocephalic. Neck is supple. Pupils reactive. Nostrils clear. Oral cavity is moist. Ears reveal no drainage. Neck reveals no JVD, carotid bruits, or thyromegaly. CHEST EXAMINATION: Trachea is central. Symmetrical expansion. Lung perdue clear to auscultation and percussion. CARDIAC: Normal S1, S2 with no gallops. No murmurs ABDOMEN: Soft. Bowel sounds normal. No organomegaly. No abdominal bruits. Extremities: reveal no edema. Right AKA No clubbing or cyanosis Neurologically awake, alert, oriented x2 . Right upper extremity weakness and contractures. Skin: No rash or skin lesions. Psychiatric: Cooperative. Could not be assessed completely Musculoskeletal: No joint swelling or deformity. Normal range of motion. Results CBC & Chem 7: 08/16/17 12:15 08/16/17 12:15 Labs: Abnormal Lab Results - Last 24 Hours (Table) 08/16/17 08/16/17 08/16/17 Range/Units 12:15 12:15 12:15 Lymphocytes # 0.8 L (1.0-4.8) k/uL PT 25.4 H (9.0-12.0) sec INR 2.8 H (<1.2) Chloride 110 H (98-107) mmol/L Carbon Dioxide 19 L (22-30) mmol/L BUN 27 H (9-20) mg/dL Glucose 134 H (74-99) mg/dL POC Glucose (mg/dL) (75-99) mg/dL Urine Ketones (Negative) Ur Leukocyte Esterase (Negative) Urine Bacteria (None) /hpf Hyaline Casts (0-2) /lpf Urine Mucus (None) /hpf 08/16/17 08/16/17 08/16/17 Range/Units 12:24 13:35 16:46 Lymphocytes # (1.0-4.8) k/uL PT (9.0-12.0) sec INR (<1.2) Chloride (98-107) mmol/L Carbon Dioxide (22-30) mmol/L BUN (9-20) mg/dL Glucose (74-99) mg/dL POC Glucose (mg/dL) 138 H 110 H (75-99) mg/dL Urine Ketones Trace H (Negative) Ur Leukocyte Esterase Trace H (Negative) Urine Bacteria Rare H (None) /hpf Hyaline Casts 5 H (0-2) /lpf Urine Mucus Rare H (None) /hpf 08/16/17 Range/Units 20:46 Lymphocytes # (1.0-4.8) k/uL PT (9.0-12.0) sec INR (<1.2) Chloride (98-107) mmol/L Carbon Dioxide (22-30) mmol/L BUN (9-20) mg/dL Glucose (74-99) mg/dL POC Glucose (mg/dL) 150 H (75-99) mg/dL Urine Ketones (Negative) Ur Leukocyte Esterase (Negative) Urine Bacteria (None) /hpf Hyaline Casts (0-2) /lpf Urine Mucus (None) /hpf Thrombosis Risk Factor Assmnt - DVT/VTE Prophylaxis DVT/VTE Prophylaxis: Pharmacologic Prophylaxis ordered - Choose All That Apply Any of the Below Risk Factors Present?: No Other Risk Factors: Yes Each Risk Factor Represents 3 Points: Age 75 years or older Other congenital or acquired thrombophilia - If yes, enter type in comment: Yes Each Risk Factor Represents 5 Points: Stroke (< 1 month) Thrombosis Risk Factor Assessment Total Risk Factor Score: 8 Thrombosis Risk Factor Assessment Level: High Risk Assessment and Plan Assessment: Altered mental status and shaky movements at home. Suspected seizures. Dehydration History of CVA in 1990 with right sided weakness and contractures. Coronary artery disease with history of CABG Bilateral carotid artery stenosis peripheral vascular disease Right AKA Neuropathy nondiabetic History history of colon cancer status post bowel resection Osteoarthritis Occipital neuritis Chronic headache and dizziness Hypertension BPH Dementia/memory impairment INR 2.8 Plan: Patient will be continued on aspirin. Continue with the gentle hydration and continue the home medications. Monitor for any seizures. Neurology was consulted. CT head is negative. No signs of infection noted. Will follow closely and further recommendations based on the clinical course. Time with Patient: Greater than 30
[2017-08-17] MEDS: SODIUM CHLORIDE 0.9% 1,000 ML IV SCH ×3 (02:31→20:19)
[2017-08-17 07:04] LABS: Basophils # (A) 0.1 k/uL (0-0.2); Basophils % (A) 1 %; Eosinophils # (A) 0.5 k/uL (0-0.7); Eosinophils % (A) 6 %; HCT 45.2 % (39.0-53.0); HGB 14.2 gm/dL (13.0-17.5); Hypochromasia Slight; Lymphocytes % (A) 12 %; MCH 29.1 pg (25.0-35.0); MCHC 31.3 g/dL (31.0-37.0); MCV 92.9 fL (80.0-100.0); Mean Platelet Volume 7.6; Monocytes # (A) 0.6 k/uL (0-1.0); Monocytes % (A) 7 %; Neutrophils # (A) 6.1 k/uL (1.3-7.7); Neutrophils % (A) 71 %; Platelet Count 150 k/uL (150-450); RBC 4.87 m/uL (4.30-5.90); RDW 14.9 % (11.5-15.5); WBC 8.5 k/uL (3.8-10.6)
[2017-08-17 07:21] LABS: Anion Gap 13 mmol/L; Blood Urea Nitrogen 24 mg/dL (9-20); Calcium 9.1 mg/dL (8.4-10.2); Carbon Dioxide 20 mmol/L (22-30); Chloride 108 mmol/L (98-107); Cholesterol 104 mg/dL (<200); Glucose 120 mg/dL (74-99); HDL Cholesterol 71 mg/dL (40-60); LDL Cholesterol,Calculated 22 mg/dL (0-99); Potassium 4.3 mmol/L (3.5-5.1); Sodium 141 mmol/L (137-145); Triglycerides 56 mg/dL (<150)
[2017-08-17] MEDS: MECLIZINE 12.5 MG TAB PO SCH ×2 (08:58→20:19)
[2017-08-17] MEDS: MEMANTINE 10 MG TAB PO SCH ×2 (08:58→20:19)
[2017-08-17] MEDS ORDERED: FUROSEMIDE 20 MG TAB PO SCH (09:00)
[2017-08-17] MEDS ORDERED: ASPIRIN 325 MG TAB PO SCH (09:00)
--- NOTE | 2017-08-17 10:49 | CONS ---
CONSULTATION DATE OF CONSULTATION: 08/16/2017. CHIEF COMPLAINT: Altered mental status. HISTORY OF PRESENT ILLNESS: Mr. Khanna is a pleasant 81-year-old male, who is being evaluated today on 08/16/2017 by the neurology service per the request of Dr. Paige for altered mental status. The patient was brought into [facility] emergency Room after his caretakers noticed that he was somewhat confused. According to the chart, the symptoms were noticed a couple of days ago and have not resolved. The patient does have history of ischemic stroke with residual right hemiparesis and is sometimes confused but this was more than usual. 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 He also does have history of memory loss and has been diagnosed with vascular dementia. He is on the Namenda for this. A CT scan of the brain was done on admission which showed the old large left middle cerebral artery stroke. There is also small vessel ischemic changes. His CBC and cardiac enzymes were normal. His comprehensive metabolic profile was normal except for mild hyperglycemia at 134 and slightly elevated BUN at 27. His urinalysis showed 3 WBCs with trace leukocyte esterase. At the time of my evaluation, he is lying in his bed and appears to be in no acute distress. He denies any confusion or any new neurological complaints. He appears to be at his baseline. PAST MEDICAL HISTORY: Stroke, coronary artery disease, history of deep venous thrombosis, dyslipidemia, hypertension, seizure disorder, history of colon cancer, peripheral vascular disease, polyneuropathy, history of MRSA, history of coronary artery bypass grafting, bowel resection, orthopedic surgeries, tonsillectomy, history of right [id number] amputation, cataract surgeries. SOCIAL HISTORY: The patient is a former smoker. There is no history of any alcohol or drug use. FAMILY HISTORY: Positive for cancer and deep venous thrombosis. MEDICATIONS: Home medications reviewed in the chart. ALLERGIES: MORPHINE, PENICILLIN, XANAX. REVIEW OF SYSTEM: As mentioned above and otherwise negative. PHYSICAL EXAM: Vital signs show a temperature of 97.2, pulse 77, respiration 18, blood pressure 136/61. GENERAL APPEARANCE: The patient is a well-developed, elderly male, who appears to be in no acute distress. HEENT: Normocephalic, atraumatic, no facial asymmetry is seen. NECK: Supple with no masses felt. CARDIOVASCULAR: Regular rate and rhythm. ABDOMEN: Nontender, nondistended. Extremities showed no edema. A right [id number] amputation is seen. NEUROLOGICAL EXAM: The patient is awake, alert, and oriented to person and place. He could not recall the year. Speech and language are normal. Significant right hemiparesis is noticed with spasticity noticed in the right upper extremity. Sensory exam showed diminished light touch sensation on the right compared to the left. Cranial nerves testing showed mild right facial drooping. No tremors or seizure-like activity is seen. IMPRESSION: 1. Altered mental status. 2. History of vascular dementia. 3. History of stroke with residual right hemiparesis. 4. Urinary tract infection. RECOMMENDATION: The patient's altered mental status appears to be improved, as he appears to be at his baseline at this time. His CT scan of the brain was reviewed and showed no acute findings. An EEG has been ordered. The patient does have history of vascular dementia and is on Namenda for this. I do recommend antibiotic therapy for his urinary tract infection. I will continue to follow with you. Further recommendations to follow. Thank you for allowing me to participate in the care of your patient. If you have any questions, please feel free to contact me. MMODL / IJN: [id number] /
[2017-08-17 12:50] LABS: Glucose,Whole Blood 152 mg/dL (75-99)
[2017-08-17] MEDS: GABAPENTIN 300 MG CAP PO SCH ×2 (12:51→20:19)
[2017-08-17] MEDS: ASPIRIN 81 MG PO SCH (12:51)
[2017-08-17 13:51] VITALS: RESP 18
[2017-08-17 16:32] LABS: Glucose,Whole Blood 125 mg/dL (75-99)
--- NOTE | 2017-08-17 18:58 | EEG ---
ELECTROENCEPHALOGRAM REPORT REASON FOR TESTING: Altered mental status. DESCRIPTION OF THE PROCEDURE: This EEG was performed using a 21-channel digital electroencephalograph, following international 10-20 system. DESCRIPTION OF THE RECORDING: From the beginning of the tracing, and with the patient's eyes closed, the background rhythm was mostly consisting of 8 Hz alpha frequency in the posterior occipital leads. No obvious asymmetry is seen. Photic stimulation was performed with a good driving response seen. No pathological waves were elicited. Hyperventilation was not performed. The patient remains awake throughout the tracing. No epileptiform discharges were seen. His EKG lead showed a regular rate and rhythm. INTERPRETATION: This awake EEG can be considered within normal limits. There was no asymmetry seen. No epileptiform discharges were noticed. The absence of epileptiform discharges does not rule out the diagnosis of epilepsy; therefore clinical correlation is recommended. MMHANNAH / HERBER: [id number] /
--- NOTE | 2017-08-17 19:24 | CT ---
EXAMINATION TYPE: CT angio head neck with contrast and with 3-D reconstruction renderings DATE OF EXAM: 08/17/2017 HISTORY: AMS COMPARISON: CT without contrast 08/16/2017 CT DLP: 316.9 mGycm. Automated Exposure Control for Dose Reduction was Utilized. TECHNIQUE: CTA scan of the neck is performed with IV Contrast, patient injected with 65 mL of Isovue 370, axial images are obtained, coronal and sagittal reformatted images are reviewed. Three-D recons tructed images are created on an independent workstation and reviewed. FINDINGS: Neck CT findings: Origin stenosis of the left vertebral artery noted, the left vertebral artery is we ll opacified and widely patent throughout the remainder of its extent. Similarly, the right vertebral artery shows origin stenosis but is widely patent throughout the remainder of its extent. The right CCA is prominently tortuous but is widely patent. Right ICA origin shows moderate stenosis, not defin itely hemodynamically significant, but physiologic carotid Doppler ultrasound can be used to complime nt this anatomic CTA examination. No incidental soft tissue neck findings. Head CT findings: Large zone of encephalomalacia throughout the vascular territory of the left middle cerebral artery consistent with remote left frontal parietal infarction. The posterior circulation a nd anterior circulation, with the exception of the left M1 and M2 segments, are well-opacified. No ac leonel intracranial findings. IMPRESSION: No definite acute process.
--- NOTE | 2017-08-17 20:07 | P.PN ---
Subjective Progress Note Date: 08/17/17 Principal diagnosis: altered mental status Neurology is following on a 81-year-old male altered mental status. Patient is known to our practice by provider. Patient was brought to [facility] ED after yardage control operator noticed increased confusion. Symptoms started several days ago but have not resolved. Patient does have a history of ischemic stroke with residual right hemiparesis, intermittent confusion more than usual. Patient does have pseudobulbar affect secondary to stroke and does have frequent inappropriate laughing. He also does have history of memory loss and vascular dementia. He is on Namenda for his memory related complaints. CT of the brain noted old large left middle cerebral artery stroke. Small vessel ischemic changes noted. Laboratory blood work noted mildly elevated glucose, UN and trace leuk esterase. Patient did have EEG is within normal limits. On contact, patient was resting in bedside chair in no acute distress. Patient is intermittently alert and oriented 3 but was noticeably more confused than previous encounters in the office/clinic setting. Objective - Vital Signs Vital signs: Vital Signs Temp 97.9 F 08/17/17 16:00 Pulse 66 08/17/17 16:00 Resp 18 08/17/17 16:00 BP 140/83 08/17/17 16:00 Pulse Ox 96 08/17/17 16:00 Intake & Output 08/17/17 08/17/17 08/18/17 06:59 18:59 06:59 Intake Total 625 712 Output Total 400 700 Balance 225 12 Weight 80.5 kg Intake: Intake, IV Titration 500 Amount Sodium Chloride 0.9% 1, 500 000 ml @ 100 mls/hr IV . Q10H [facility] Rx#:[id number] Oral 125 712 Output: Urine 400 400 Stool 300 Other: Voiding Method Urinal # Voids 1 - Exam General appearance: Alert & oriented x4, no apparent distress. Head: Atraumatic, normocephalic, normal inspection Eyes: Well appearance, PERRLA, EOMI. Absent scleral icterus, conjunctival injection, nystagmus, periorbital swelling. Ear, nose and throat: Normal exam, mucous membranes moist Neck: Normal inspection, absent tenderness, lymphadenopathy. Respiratory: No increased work of breathing Cardiovascular: Regular rate, rhythm GI/abdominal: Normal bowel sounds, nondistended, no tenderness, no guarding, no rebound, no rigidity. Extremities: significant right hemiparesi spasticity in the right upper extremity. F the above the knee amputation Neurological: cranial nerves II through XII intact: Mild right facial droop. no lateralizing weakness no seizure activity noted on physical exam no pronator drift and no nystagmus. Sensation: diminished light touch sensation in the right upper compared to the left upper extremity. Psychological: Mood and affect appropriate for setting. - Labs CBC & Chem 7: 08/17/17 06:32 08/17/17 06:32 Labs: Abnormal Lab Results - Last 24 Hours (Table) 08/16/17 08/17/17 08/17/17 Range/Units 20:46 06:32 12:48 Chloride 108 H (98-107) mmol/L Carbon Dioxide 20 L (22-30) mmol/L BUN 24 H (9-20) mg/dL Glucose 120 H (74-99) mg/dL POC Glucose (mg/dL) 150 H 152 H (75-99) mg/dL HDL Cholesterol 71 H (40-60) mg/dL 08/17/17 Range/Units 16:30 Chloride (98-107) mmol/L Carbon Dioxide (22-30) mmol/L BUN (9-20) mg/dL Glucose (74-99) mg/dL POC Glucose (mg/dL) 125 H (75-99) mg/dL HDL Cholesterol (40-60) mg/dL Assessment and Plan (1) Vascular dementia Current Visit: Yes Status: Acute Code(s): F01.50 - VASCULAR DEMENTIA WITHOUT BEHAVIORAL DISTURBANCE SNOMED Code(s): 890967037 (2) UTI (urinary tract infection) Current Visit: Yes Status: Acute Code(s): N39.0 - URINARY TRACT INFECTION, SITE NOT SPECIFIED SNOMED Code(s): 63201128 (3) Change in mental status Current Visit: Yes Status: Acute Code(s): R41.82 - ALTERED MENTAL STATUS, UNSPECIFIED SNOMED Code(s): 506901357 (4) Hemiparesis, right Current Visit: No Status: Acute Code(s): G81.91 - HEMIPLEGIA, UNSPECIFIED AFFECTING RIGHT DOMINANT SIDE SNOMED Code(s): 359849527 Plan: Patient's mental status appears to be decreased from yesterday. Patient is having difficulty with vision changes and vertigo-like symptoms as well. CT scan of brain showed no acute findings. EEG was normal. CT angiogram was previously ordered by this provider. CT angiogram head and neck noted no definite acute process. It is noted however that CT of the head noted large zone of encephalomalacia throughout the vascular territory of the left middle cerebral artery consistent with remote left frontal parietal infarction. Posterior circulation anterior circulation with the exception of the left M1 and M2 segments are well opacified. No acute intracranial findings. Recommend consider increasing Antivert to 25 mg twice a day and reassess correct abnormal laboratory blood work for known correctable etiologies continue: Aspirin, Lipitor, Namenda at noted dose and frequencies status: Neurology will continue to follow on an as needed basis. If the patient is discharged, advised the patient to follow-up in our office within 10- 14 days. Notify neurology with any neurological changes. I have discussed the plan of care with the physician prior to implementation and he agrees with the plan as implemented.
[2017-08-17] MEDS: ATORVASTATIN 10 MG TAB PO SCH (20:19)
[2017-08-17] MEDS: FINASTERIDE 5 MG TAB PO SCH (20:19)
[2017-08-17] MEDS: amLODIPine 5 MG TAB PO SCH (20:19)
[2017-08-17 21:08] LABS: Glucose,Whole Blood 153 mg/dL (75-99)
--- NOTE | 2017-08-17 23:31 | P.PN ---
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 Patient is a poor historian. Patient does have caregiver at home and noticed patient is confused and is has been having shaking movements which has been occurring several days to a week. As per the caregiver patient does not feel right and has been slightly confused from his baseline. Patient was brought to the hospital for further evaluation. Patient does not have any recent illnesses. No fever no chills. No cough or sputum production. No nausea vomiting or abdominal pain. No sick contacts otherwise at home. No bladder or bowel incontinence. CT head showed remote ischemic changes. No acute process noted. Chest x-ray showed no acute process EKG showed normal sinus rhythm UA negative for infection 08/17/17. Patient did have EEG today which showed no aerobic activity. CT angiogram of the head and neck was done showed no significant hemodynamic stenosis. Patient does have left-sided large encephalomalacia positive from the previous stroke. Otherwise patient is still having congestion on and off. Patient is also complaining of dizziness. Antivert dose has been increased. Neurology is following. Patient will be continued on IV hydration and follow closely. Otherwise patient is a poor historian no complaints of chest pain or shortness of breath. No nausea vomiting or abdominal pain. No fever no chills. Complete review of systems could not be obtained from the patient Current medications reviewed Objective - Vital Signs Vital signs: Vital Signs Temp 97.9 F 08/17/17 16:00 Pulse 66 08/17/17 16:00 Resp 18 08/17/17 16:00 BP 140/83 08/17/17 16:00 Pulse Ox 96 08/17/17 16:00 Intake & Output 08/17/17 08/17/17 08/18/17 06:59 18:59 06:59 Intake Total 625 712 Output Total 400 700 Balance 225 12 Weight 80.5 kg Intake: Intake, IV Titration 500 Amount Sodium Chloride 0.9% 1, 500 000 ml @ 100 mls/hr IV . Q10H [facility] Rx#:[id number] Oral 125 712 Output: Urine 400 400 Stool 300 Other: Voiding Method Urinal # Voids 1 - Exam PHYSICAL EXAMINATION: Patient is lying in the bed comfortably, no acute distress, awake alert and orientedx2.. HEENT: Normocephalic. Neck is supple. Pupils reactive. Nostrils clear. Oral cavity is moist. Ears reveal no drainage. Neck reveals no JVD, carotid bruits, or thyromegaly. CHEST EXAMINATION: Trachea is central. Symmetrical expansion. Lung perdue clear to auscultation and percussion. CARDIAC: Normal S1, S2 with no gallops. No murmurs ABDOMEN: Soft. Bowel sounds normal. No organomegaly. No abdominal bruits. Extremities: reveal no edema. Right AKA No clubbing or cyanosis Neurologically awake, alert, oriented x2 . Right upper extremity weakness and contractures. Skin: No rash or skin lesions. Psychiatric: Cooperative. Could not be assessed completely Musculoskeletal: No joint swelling or deformity. Normal range of motion. - Labs CBC & Chem 7: 08/17/17 06:32 08/17/17 06:32 Labs: Abnormal Lab Results - Last 24 Hours (Table) 08/17/17 08/17/17 08/17/17 Range/Units 06:32 12:48 16:30 Chloride 108 H (98-107) mmol/L Carbon Dioxide 20 L (22-30) mmol/L BUN 24 H (9-20) mg/dL Glucose 120 H (74-99) mg/dL POC Glucose (mg/dL) 152 H 125 H (75-99) mg/dL HDL Cholesterol 71 H (40-60) mg/dL 08/17/17 Range/Units 21:05 Chloride (98-107) mmol/L Carbon Dioxide (22-30) mmol/L BUN (9-20) mg/dL Glucose (74-99) mg/dL POC Glucose (mg/dL) 153 H (75-99) mg/dL HDL Cholesterol (40-60) mg/dL Assessment and Plan Assessment: Altered mental status and shaky movements at home. Suspected seizures. EEG is within normal limits. CT angiogram of head and neck showed no hemodynamic stenosis Dehydration History of CVA in 1990 with right sided weakness and contractures. Coronary artery disease with history of CABG Bilateral carotid artery stenosis peripheral vascular disease Right AKA Neuropathy nondiabetic History history of colon cancer status post bowel resection Osteoarthritis Occipital neuritis Chronic headache and dizziness Hypertension BPH Dementia/memory impairment INR 2.8 Plan: Patient will be continued on aspirin. Continue with the gentle hydration and continue the home medications. Neurology is following.. CT head is negative. No signs of infection noted. Will follow closely and further recommendations based on the clinical course. Time with Patient: Greater than 30
[2017-08-18 06:26] LABS: Basophils % (A) 1 %; Eosinophils # (A) 0.5 k/uL (0-0.7); Eosinophils % (A) 6 %; HGB 14.1 gm/dL (13.0-17.5); Lymphocytes # (A) 1.1 k/uL (1.0-4.8); Lymphocytes % (A) 14 %; MCH 29.6 pg (25.0-35.0); MCHC 33.5 g/dL (31.0-37.0); MCV 88.3 fL (80.0-100.0); Mean Platelet Volume 7.4; Monocytes # (A) 0.7 k/uL (0-1.0); Monocytes % (A) 9 %; Neutrophils # (A) 5.4 k/uL (1.3-7.7); Neutrophils % (A) 68 %; Platelet Count 164 k/uL (150-450); RBC 4.75 m/uL (4.30-5.90); RDW 14.8 % (11.5-15.5); WBC 7.9 k/uL (3.8-10.6)
[2017-08-18 06:31] LABS: Glucose,Whole Blood 119 mg/dL (75-99)
[2017-08-18 06:44] LABS: Anion Gap 11 mmol/L; Blood Urea Nitrogen 19 mg/dL (9-20); Carbon Dioxide 24 mmol/L (22-30); Chloride 106 mmol/L (98-107); Glucose 120 mg/dL (74-99); Sodium 141 mmol/L (137-145)
[2017-08-18] MEDS: MECLIZINE 12.5 MG TAB PO SCH (08:39)
[2017-08-18] MEDS: MEMANTINE 10 MG TAB PO SCH (08:39)
[2017-08-18] MEDS: SODIUM CHLORIDE 0.9% 1,000 ML IV SCH (11:18)
[2017-08-18] MEDS: ASPIRIN 81 MG PO SCH (11:25)
[2017-08-18] MEDS: GABAPENTIN 300 MG CAP PO SCH (11:25)
[2017-08-18 12:20] LABS: Glucose,Whole Blood 115 mg/dL (75-99)
[2017-08-18 16:30] VITALS: BP 133/68; PULSE 78; TEMP 98.3
[2017-08-18] MEDS ORDERED: MECLIZINE 25 MG TAB PO SCH (21:00)
== END 2017-08-18 16:33 | disposition home health service (06) | DRG 101 ==
LOC: EC 11:28 → 6SEL 14:42
PROVIDERS: ADMIT Internal Medicine; ATTEND Internal Medicine
DX: G40.909 Epilepsy, unspecified, not intractable, without status epilepticus (principal); I69.351 Hemiplegia and hemiparesis following cerebral infarction affecting right dominant side; N39.0 Urinary tract infection, site not specified; I45.2 Bifascicular block; G93.89 Other specified disorders of brain; G62.9 Polyneuropathy, unspecified; E86.0 Dehydration; I65.23 Occlusion and stenosis of bilateral carotid arteries; F01.50 Vascular dementia, unspecified severity, without behavioral disturbance, psychotic disturbance, mood disturbance, and anxiety; I69.315 Cognitive social or emotional deficit following cerebral infarction; I69.392 Facial weakness following cerebral infarction; F48.2 Pseudobulbar affect; R40.2362 Coma scale, best motor response, obeys commands, at arrival to emergency department; R40.2142 Coma scale, eyes open, spontaneous, at arrival to emergency department; R40.2242 Coma scale, best verbal response, confused conversation, at arrival to emergency department; E78.5 Hyperlipidemia, unspecified; I10 Essential (primary) hypertension; M79.2 Neuralgia and neuritis, unspecified; N40.0 Benign prostatic hyperplasia without lower urinary tract symptoms; R41.3 Other amnesia; I25.10 Atherosclerotic heart disease of native coronary artery without angina pectoris; M19.91 Primary osteoarthritis, unspecified site; M10.9 Gout, unspecified; L98.9 Disorder of the skin and subcutaneous tissue, unspecified; I73.9 Peripheral vascular disease, unspecified; Z79.82 Long term (current) use of aspirin; Z79.51 Long term (current) use of inhaled steroids; Z79.899 Other long term (current) drug therapy; Z93.3 Colostomy status; Z86.718 Personal history of other venous thrombosis and embolism; Z89.611 Acquired absence of right leg above knee; Z95.1 Presence of aortocoronary bypass graft; Z90.49 Acquired absence of other specified parts of digestive tract; Z85.038 Personal history of other malignant neoplasm of large intestine; Z86.14 Personal history of Methicillin resistant Staphylococcus aureus infection; Z98.42 Cataract extraction status, left eye; Z98.41 Cataract extraction status, right eye; Z96.1 Presence of intraocular lens; Z87.891 Personal history of nicotine dependence; Z88.5 Allergy status to narcotic agent; Z88.0 Allergy status to penicillin; Z88.8 Allergy status to other drugs, medicaments and biological substances; Z83.2 Family history of diseases of the blood and blood-forming organs and certain disorders involving the immune mechanism; Z80.9 Family history of malignant neoplasm, unspecified; Z82.49 Family history of ischemic heart disease and other diseases of the circulatory system
CPT/HCPCS: 36415; 70450; 70496; 70498; 71046; 80048; 80053; 80061; 81001; 82550; 82553; 83090; 83735; 84484; 85025; 85610; 85730; 93005; 95819; 99285

== ENCOUNTER 2017-12-13 10:43 | Inpatient (IN) | payer MEDICARE ==
[2017-12-13] MEDS ORDERED: SODIUM CHLORIDE 0.9% 500 ML 500 ML IV STA (11:03)
--- NOTE | 2017-12-13 11:08 | ED ---
General Adult HPI - General Chief complaint: Altered Mental Status Stated complaint: confusion slurred speech Time Seen by Provider: 12/13/17 10:45 Source: patient, RN notes reviewed Mode of arrival: wheelchair - History of Present Illness Initial comments: This is an 82-year-old male who presents emergency Department with a past medical history significant for an amputated of the left leg above the knee. Patient is also a stroke in the right side so he has limited movement of the right arm. Patient's caregiver brings him in today because patient was having problems with expressing himself and word finding. Patient also is having a little more prominent with balance today than normal and it was also noted that he is very slow to respond to questions where he normally would be much quicker. Patient went to Dr. Castaneda's office and was sent here to the emergency department. Patient denies any headache patient denies any numbness or weakness patient denies any recent fever chills or cough. Patient denies any chest pain or difficulty breathing or shortness of breath. Patient denies any abdominal pain patient denies any recent nausea vomiting or diarrhea. Patient states he does feel like his heart to express himself and find words that he wants to use. According to the caregiver some of the symptoms are seen over the weekend but it was more pronounced this morning when the patient woke up - Related Data Home Medications Medication Instructions Recorded Confirmed Cholecalciferol [Vitamin D3] 1,000 unit PO DAILY 01/19/14 12/13/17 Finasteride 5 mg PO HS 01/19/14 12/13/17 Nitroglycerin Sl Tabs [Nitrostat] 0.4 mg SL Q5M PRN 01/19/14 12/13/17 Gabapentin 600 mg PO BID 04/14/15 12/13/17 amLODIPine [Norvasc] 5 mg PO DAILY 04/14/15 12/13/17 Ascorbic Acid [Vitamin C] 500 mg PO DAILY@1200 09/20/16 12/13/17 Aspirin [Adult Low Dose Aspirin EC] 81 mg PO DAILY 09/20/16 12/13/17 Fluticasone Nasal [place] [Flonase 1 spray EA NOSTRIL BID PRN 09/20/16 12/13/17 Nasal [place]] Furosemide [Lasix] 20 mg PO DAILY 09/20/16 12/13/17 Quinapril HCl [Accupril] 40 mg PO QAM 09/20/16 12/13/17 Allopurinol [Zyloprim] 100 mg PO BID 03/29/17 12/13/17 Hydrocodone/Acetaminophen [[place] 1 tab PO TID 03/29/17 12/13/17 10-325] Magnesium Oxide [Mag-Ox] 250 mg PO DAILY 03/29/17 12/13/17 Simvastatin [Zocor] 20 mg PO HS 03/29/17 12/13/17 Terazosin [Hytrin] 5 mg PO HS 03/29/17 12/13/17 Memantine [Namenda] 10 mg PO BID 06/07/17 12/13/17 Meclizine [Antivert] 12.5 mg PO BID 08/16/17 12/13/17 Warfarin Sodium [Coumadin] 2.5 mg PO SUTUTHSA 12/13/17 12/13/17 Warfarin [Coumadin] 5 mg PO MOWEFR 12/13/17 12/13/17 Allergies Allergy/AdvReac Type Severity Reaction Status Date / Time alprazolam [From Xanax] Allergy Rash/Hives Verified 12/13/17 11:18 morphine Allergy Rash/Hives Verified 12/13/17 11:18 Penicillins Allergy Unknown Verified 12/13/17 11:18 Childhood Review of Systems ROS Statement: Those systems with pertinent positive or pertinent negative responses have been documented in the HPI. ROS Other: All systems not noted in ROS Statement are negative. Past Medical History Past Medical History: Coronary Artery Disease (CAD), Cancer, CVA/TIA, Deep Vein Thrombosis (DVT), Hyperlipidemia, Hypertension, Memory Impairment, Prostate Disorder, Seizure Disorder, Skin Disorder, Vascular Disorder Additional Past Medical History / Comment(s): 1990 CVA with R sided weakness, uses w/c 1990 seizure, hx colon cancer , DVTs in bilateral legs, PVD-neuropathy , hx cellulitis lower legs, gout R foot toes, occipital neuritis, headaches and dizziness from blocked carotid arteries, palpitations, short term memory problems History of Any Multi-Drug Resistant Organisms: MRSA Date of last positivie culture/infection: 2012 MDRO Source:: rt leg Past Surgical History: Bowel Resection, Coronary Bypass/CABG, Heart Catheterization, Orthopedic Surgery, Tonsillectomy Additional Past Surgical History / Comment(s): 1990 CABG, rt above knee amputation , bowel resection with colostomy, Angiograms, lt fem bypass and rt leg stent, bilateral cataracts removed with lens implants, L foot toe surgery, surgery to reattach left little finger, rt eyelid surgery Past Anesthesia/Blood Transfusion Reactions: No Reported Reaction Past Psychological History: No Psychological Hx Reported Smoking Status: Former smoker - Past Family History Mother Family Medical History: Deep Vein Thrombosis (DVT) Additional Family Medical History / Comment(s): Mother had DVTs in her legs and from this. Father Family Medical History: Cancer Additional Family Medical History / Comment(s): HEART PROBLEMS General Exam - General Exam Comments Initial Comments: GENERAL: Patient is well-developed and well-nourished. Patient is nontoxic and well- hydrated and is in no acute distress. ENT: Neck is soft and supple. No significant lymphadenopathy is noted. Oropharynx is clear. Moist mucous membranes. Neck has full range of motion without eliciting any pain. EYES: The sclera were anicteric and conjunctiva were pink and moist. Extraocular movements were intact and pupils were equal round and reactive to light. Eyelids were unremarkable. PULMONARY: Unlabored respirations. Good breath sounds bilaterally. No audible rales rhonchi or wheezing was noted. CARDIOVASCULAR: There is a regular rate and rhythm without any murmurs gallops or rubs. ABDOMEN: Soft and nontender with normal bowel sounds. No palpable organomegaly was noted. There is no palpable pulsatile mass. SKIN: Skin is clear with no lesions or rashes and otherwise unremarkable. NEUROLOGIC: Patient is alert and oriented 2. Cranial nerves II through XII are grossly intact. Motor and sensory are also intact. Patient does seem to have some expressive aphasia and is having a difficult time following basic commands. MUSCULOSKELETAL: Patient is moving his left arm and leg normally however his right arm has significant paralysis from a previous stroke and he has an amputation of the right leg [id number]. No lower extremity swelling or edema. No calf tenderness. LYMPHATICS: No significant lymphadenopathy is noted PSYCHIATRIC: Normal psychiatric evaluation. Course Vital Signs 12/13/17 10:45 Temperature 98.1 F Pulse Rate 71 Respiratory 18 Rate Blood Pressure 140/67 O2 Sat by Pulse 96 Oximetry Medical Decision Making - Medical Decision Making EKG shows normal sinus rhythm at 70 bpm NH interval 270 QRS is 156 QT interval 446 QTC is 481. Patient has a right bundle branch block no acute abnormalities are noted. Chest x-ray shows no acute abnormality. Computed tomography scan shows no acute abnormality. Patient's expressive aphasia continues and again he still does not follow basic commands as quickly as he normally would according to the caregiver. - Lab Data Result diagrams: 12/13/17 11:23 12/13/17 11:23 Lab Results 12/13/17 12/13/17 12/13/17 Range/Units 11:23 11:23 11:23 WBC 7.9 (3.8-10.6) k/uL RBC 4.76 (4.30-5.90) m/uL Hgb 14.4 (13.0-17.5) gm/dL Hct 43.0 (39.0-53.0) % MCV 90.4 (80.0-100.0) fL MCH 30.3 (25.0-35.0) pg MCHC 33.5 (31.0-37.0) g/dL RDW 13.8 (11.5-15.5) % Plt Count 179 (150-450) k/uL Neutrophils % 72 % Lymphocytes % 12 % Monocytes % 7 % Eosinophils % 6 % Basophils % 0 % Neutrophils # 5.7 (1.3-7.7) k/uL Lymphocytes # 0.9 L (1.0-4.8) k/uL Monocytes # 0.6 (0-1.0) k/uL Eosinophils # 0.5 (0-0.7) k/uL Basophils # 0.0 (0-0.2) k/uL PT (9.0-12.0) sec INR (<1.2) APTT (22.0-30.0) sec Sodium 141 (137-145) mmol/L Potassium 4.1 (3.5-5.1) mmol/L Chloride 108 H (98-107) mmol/L Carbon Dioxide 25 (22-30) mmol/L Anion Gap 8 mmol/L BUN 17 (9-20) mg/dL Creatinine 0.85 (0.66-1.25) mg/dL Est GFR (CKD-EPI)AfAm >90 (>60 ml/min/1.73 sqM) Est GFR (CKD-EPI)NonAf 82 (>60 ml/min/1.73 sqM) Glucose 112 H (74-99) mg/dL Calcium 9.3 (8.4-10.2) mg/dL Total Bilirubin 0.8 (0.2-1.3) mg/dL AST 14 L (17-59) U/L ALT 19 L (21-72) U/L Alkaline Phosphatase 56 (38-126) U/L Total Creatine Kinase 39 L (55-170) U/L CK-MB (CK-2) 0.9 (0.0-2.4) ng/mL CK-MB (CK-2) Rel Index 2.3 Troponin I <0.012 (0.000-0.034) ng/mL Total Protein 7.0 (6.3-8.2) g/dL Albumin 3.7 (3.5-5.0) g/dL 12/13/17 Range/Units 11:23 WBC (3.8-10.6) k/uL RBC (4.30-5.90) m/uL Hgb (13.0-17.5) gm/dL Hct (39.0-53.0) % MCV (80.0-100.0) fL MCH (25.0-35.0) pg MCHC (31.0-37.0) g/dL RDW (11.5-15.5) % Plt Count (150-450) k/uL Neutrophils % % Lymphocytes % % Monocytes % % Eosinophils % % Basophils % % Neutrophils # (1.3-7.7) k/uL Lymphocytes # (1.0-4.8) k/uL Monocytes # (0-1.0) k/uL Eosinophils # (0-0.7) k/uL Basophils # (0-0.2) k/uL PT 26.4 H (9.0-12.0) sec INR 2.9 H (<1.2) APTT 34.6 H (22.0-30.0) sec Sodium (137-145) mmol/L Potassium (3.5-5.1) mmol/L Chloride (98-107) mmol/L Carbon Dioxide (22-30) mmol/L Anion Gap mmol/L BUN (9-20) mg/dL Creatinine (0.66-1.25) mg/dL Est GFR (CKD-EPI)AfAm (>60 ml/min/1.73 sqM) Est GFR (CKD-EPI)NonAf (>60 ml/min/1.73 sqM) Glucose (74-99) mg/dL Calcium (8.4-10.2) mg/dL Total Bilirubin (0.2-1.3) mg/dL AST (17-59) U/L ALT (21-72) U/L Alkaline Phosphatase (38-126) U/L Total Creatine Kinase (55-170) U/L CK-MB (CK-2) (0.0-2.4) ng/mL CK-MB (CK-2) Rel Index Troponin I (0.000-0.034) ng/mL Total Protein (6.3-8.2) g/dL Albumin (3.5-5.0) g/dL Disposition Clinical Impression: CVA (cerebral vascular accident) Disposition: ADMITTED IP TO THIS HOSP Referrals: Krish Champion MD [Primary Care Provider] - 1-2 days Time of Disposition: 13:27
[2017-12-13 11:57] LABS: ALT 19 U/L (21-72); AST 14 U/L (17-59); Albumin 3.7 g/dL (3.5-5.0); Alkaline Phosphatase 56 U/L (38-126); Anion Gap 8 mmol/L; Blood Urea Nitrogen 17 mg/dL (9-20); Calcium 9.3 mg/dL (8.4-10.2); Carbon Dioxide 25 mmol/L (22-30); Chloride 108 mmol/L (98-107); Glucose 112 mg/dL (74-99); Potassium 4.1 mmol/L (3.5-5.1); Sodium 141 mmol/L (137-145); Total Bilirubin 0.8 mg/dL (0.2-1.3)
[2017-12-13 12:00] LABS: INR 2.9 (<1.2); Partial Thromboplastin Time 34.6 sec (22.0-30.0); Prothrombin Time 26.4 sec (9.0-12.0)
--- NOTE | 2017-12-13 12:02 | CT ---
EXAMINATION TYPE: CT brain wo con DATE OF EXAM: 12/13/2017 COMPARISON: 08/16/2017 HISTORY: Slurred speech and confusion. CT DLP: 1207 mGycm Automated exposure control for dose reduction was used. FINDINGS: The ventricles, basal cisterns and sulci overlying the cerebral convexities demonstrate moderate enla rgement. Large left MCA territory remote infarct. Ex vacuo dilatation of the left lateral ventricle a nd left frontal horn. Calcification within the area of previous infarct is stable and likely dystroph ic. There is no evidence for intracranial hemorrhage or sulcal effacement. There is decreased attenuation about the periventricular white matter and deep white matter of both c erebral hemispheres, compatible with chronic small vessel ischemia. Differential diagnosis does inclu de demyelination. No mass effects are seen. No midline shift. Osseous calvarium is intact Intracrania l atherosclerotic changes noted. Nasal septal deviation with changes of chronic sinusitis noted. IMPRESSION: DEGENERATIVE AND SUSPECTED REMOTE ISCHEMIC CHANGE WITH NO DEFINITE EVIDENCE OF ACUTE INTRACRANIAL HEM ORRHAGE OR MASS EFFECT.
[2017-12-13 12:03] LABS: Basophils % (A) 0 %; Eosinophils # (A) 0.5 k/uL (0-0.7); Eosinophils % (A) 6 %; HGB 14.4 gm/dL (13.0-17.5); Lymphocytes # (A) 0.9 k/uL (1.0-4.8); Lymphocytes % (A) 12 %; MCH 30.3 pg (25.0-35.0); MCHC 33.5 g/dL (31.0-37.0); MCV 90.4 fL (80.0-100.0); Mean Platelet Volume 7.6; Monocytes # (A) 0.6 k/uL (0-1.0); Monocytes % (A) 7 %; Neutrophils # (A) 5.7 k/uL (1.3-7.7); Neutrophils % (A) 72 %; Platelet Count 179 k/uL (150-450); RBC 4.76 m/uL (4.30-5.90); RDW 13.8 % (11.5-15.5); WBC 7.9 k/uL (3.8-10.6)
--- NOTE | 2017-12-13 12:03 | XR ---
EXAMINATION TYPE: XR chest 2V DATE OF EXAM: 12/13/2017 COMPARISON: 08/16/2017 TECHNIQUE: PA and lateral views submitted. HISTORY: Confusion FINDINGS: The lungs are clear and there is no pneumothorax, pleural effusion, or focal pneumonia. Calcificati ons within the left lung may be pleural-based related to granulomatous change. Findings are stable. P ostsurgical change and atherosclerotic change aorta. Hyperinflation suggests COPD. Diffuse osteopenia and arthropathy of the shoulders. Hypertrophic and degenerative changes of the spine. IMPRESSION: 1. No acute process. Correlate for COPD.
[2017-12-13 12:15] LABS: Creatine Kinase 39 U/L (55-170)
[2017-12-13 12:26] LABS: Creatine Kinase MB 0.9 ng/mL (0.0-2.4); Troponin I <0.012 ng/mL (0.000-0.034)
[2017-12-13 13:54] LABS: Appearance,Urine Clear (Clear); Bilirubin,Urine Negative (Negative); Blood,Urine Negative (Negative); Color,Urine Light Yellow; Glucose,Urine (UA) Negative (Negative); Ketones,Urine Negative (Negative); Leukocyte Esterase,Urine Negative (Negative); Nitrite,Urine Negative (Negative); PH, Urine 5.5 (5.0-8.0); Protein,Urine Negative (Negative); Specific Gravity,Urine 1.005 (1.001-1.035); Urobilinogen,Urine <2.0 mg/dL (<2.0)
[2017-12-13] MEDS ORDERED: FLUTICASONE 50MCG/SPRAY NASAL 16GM EA NOSTRIL PRN (15:31)
[2017-12-13] MEDS ORDERED: NITROGLYCERIN SL TABS 0.4 MG TAB SUBLINGUAL PRN (15:31)
[2017-12-13] MEDS: HYDROcodone/APAP 10-325MG 1 EACH TAB PO SCH ×2 (16:49→20:06)
--- NOTE | 2017-12-13 17:27 | P.HPIM ---
History of Present Illness -year-old male brought to the emergency room with complaints of increasing confusion area patient has history of CVA with right-sided weakness history of DVT history of coronary disease with CABG. History of cancer with bowel resection. Patient also has right lower leg amputation from peripheral vascular Review of Systems ROS unobtainable: due to mental status Past Medical History Past Medical History: Coronary Artery Disease (CAD), Cancer, CVA/TIA, Deep Vein Thrombosis (DVT), Hyperlipidemia, Hypertension, Memory Impairment, Prostate Disorder, Seizure Disorder, Skin Disorder, Vascular Disorder Additional Past Medical History / Comment(s): 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 History of Any Multi-Drug Resistant Organisms: MRSA Date of last positivie culture/infection: 2012 MDRO Source:: rt leg Past Surgical History: Bowel Resection, Coronary Bypass/CABG, Heart Catheterization, Orthopedic Surgery, Tonsillectomy Additional Past Surgical History / Comment(s): 1990 CABG, rt above knee amputation-has'nt been using his prothesis because it was causing him pain when he was up on it. , bowel resection with colostomy, Angiograms, lt fem bypass and rt leg stent, bilateral cataracts removed with lens implants, L foot toe surgery, surgery to reattach left little finger, rt eyelid surgery Past Anesthesia/Blood Transfusion Reactions: No Reported Reaction Additional Past Anesthesia/Blood Transfusion Reaction / Comment(s): difficuly waking up after sx (per son) Smoking Status: Former smoker - Past Family History Mother Family Medical History: Deep Vein Thrombosis (DVT) Additional Family Medical History / Comment(s): Mother had DVTs in her legs and from this. Father Family Medical History: Cancer Additional Family Medical History / Comment(s): HEART PROBLEMS Medications and Allergies Home Medications Medication Instructions Recorded Confirmed Type Cholecalciferol [Vitamin D3] 1,000 unit PO DAILY 01/19/14 12/13/17 History Finasteride 5 mg PO HS 01/19/14 12/13/17 History Nitroglycerin Sl Tabs [Nitrostat] 0.4 mg SL Q5M PRN 01/19/14 12/13/17 History Gabapentin 600 mg PO BID 04/14/15 12/13/17 History amLODIPine [Norvasc] 5 mg PO DAILY 04/14/15 12/13/17 History Ascorbic Acid [Vitamin C] 500 mg PO DAILY@1200 09/20/16 12/13/17 History Aspirin [Adult Low Dose Aspirin EC] 81 mg PO DAILY 09/20/16 12/13/17 History Fluticasone Nasal [place] [Flonase 1 spray EA NOSTRIL BID PRN 09/20/16 12/13/17 History Nasal [place]] Furosemide [Lasix] 20 mg PO DAILY 09/20/16 12/13/17 History Quinapril HCl [Accupril] 40 mg PO QAM 09/20/16 12/13/17 History Allopurinol [Zyloprim] 100 mg PO BID 03/29/17 12/13/17 History Hydrocodone/Acetaminophen [[place] 1 tab PO TID 03/29/17 12/13/17 History 10-325] Magnesium Oxide [Mag-Ox] 250 mg PO DAILY 03/29/17 12/13/17 History Simvastatin [Zocor] 20 mg PO HS 03/29/17 12/13/17 History Terazosin [Hytrin] 5 mg PO HS 03/29/17 12/13/17 History Memantine [Namenda] 10 mg PO BID 06/07/17 12/13/17 History Meclizine [Antivert] 12.5 mg PO BID 08/16/17 12/13/17 History Warfarin Sodium [Coumadin] 2.5 mg PO SUTUTHSA 12/13/17 12/13/17 History Warfarin [Coumadin] 5 mg PO MOWEFR 12/13/17 12/13/17 History Allergies Allergy/AdvReac Type Severity Reaction Status Date / Time alprazolam [From Xanax] Allergy Rash/Hives Verified 12/13/17 11:18 morphine Allergy Rash/Hives Verified 12/13/17 11:18 Penicillins Allergy Unknown Verified 12/13/17 11:18 Childhood Physical Exam Vitals: Vital Signs Temp Pulse Resp BP Pulse Ox 12/13/17 14:37 98 F 68 18 110/56 98 12/13/17 13:37 60 18 111/69 96 12/13/17 10:45 98.1 F 71 18 140/67 96 Intake and Output 12/13/17 12/13/17 12/13/17 06:59 14:59 22:59 Output Total 1150 300 Balance -1150 -300 Output: Urine 1150 300 Straight 1150 Other: Weight 81.647 kg - Constitutional General appearance: mild distress - EENT Eyes: PERRLA Ears: bilateral: normal - Neck Neck: normal ROM - Respiratory Respiratory: bilateral: CTA - Cardiovascular Rhythm: regular - Gastrointestinal General gastrointestinal: soft - Integumentary Integumentary: normal - Neurologic Right 2.. Chronic right hand contracture from history of CVA. Patient unsure of the date and time unsure of who the president - Musculoskeletal Musculoskeletal: generalized weakness, right sided weakness - Psychiatric Awake and alert a real answer appropriately with yes and no questions unsure to date and time Results CBC & Chem 7: 12/13/17 11:23 12/13/17 11:23 Labs: Abnormal Lab Results - Last 24 Hours (Table) 12/13/17 12/13/17 12/13/17 Range/Units 11:23 11:23 11:23 Lymphocytes # 0.9 L (1.0-4.8) k/uL PT (9.0-12.0) sec INR (<1.2) APTT (22.0-30.0) sec Chloride 108 H (98-107) mmol/L Glucose 112 H (74-99) mg/dL AST 14 L (17-59) U/L ALT 19 L (21-72) U/L Total Creatine Kinase 39 L (55-170) U/L 12/13/17 Range/Units 11:23 Lymphocytes # (1.0-4.8) k/uL PT 26.4 H (9.0-12.0) sec INR 2.9 H (<1.2) APTT 34.6 H (22.0-30.0) sec Chloride (98-107) mmol/L Glucose (74-99) mg/dL AST (17-59) U/L ALT (21-72) U/L Total Creatine Kinase (55-170) U/L Chest x-ray: report reviewed CT Scan - head: report reviewed Assessment and Plan Plan: Assessment CVA with expressive aphasia History of CVA/TIA with right-sided weakness History of coronary disease with CABG history of bowel cancer with bowel resection history of DVT COPD hypertension hyperlipidemia Memory impairment Seizure disorder Prostate BPH Plan Consultation from neurology
[2017-12-13] MEDS: ALLOPURINOL 100 MG TAB PO SCH (20:04)
[2017-12-13] MEDS: MECLIZINE 12.5 MG TAB PO SCH (20:04)
[2017-12-13] MEDS: GABAPENTIN 300 MG CAP PO SCH (20:04)
[2017-12-13] MEDS: DOXAZOSIN 4 MG TAB PO SCH (20:04)
[2017-12-13] MEDS: FINASTERIDE 5 MG TAB PO SCH (20:04)
[2017-12-13] MEDS: MEMANTINE 10 MG TAB PO SCH (20:04)
[2017-12-13] MEDS: ATORVASTATIN 10 MG TAB PO SCH (20:04)
--- NOTE | 2017-12-13 22:42 | P.CNNES ---
History of Present Illness Consult date: 12/13/17 Reason for Consult: Patient admitted with possible stroke and confusion. History of Present Illness: This patient is a 82-year-old right-handed white male who apparently was in his usual state of health until earlier today. He has a caregiver who helps him with his daily routines at home and apparently he was noted today to have increasing symptoms of confusion and difficulty with his speech. He has a history of having suffered an old stroke as well as long-standing history of peripheral vascular disease and deep vein thrombosis in the past. He does take Coumadin on a regular basis. The patient apparently noted today that he was having greater difficulty with word finding difficulties and ability to express himself. His caregivers also noted a change in his mental status with increased confusion. He went to see his physician today who advised him to go to the hospital for evaluation. He was brought into the emergency room at [facility] for evaluation. He was seen in the ER by Dr. Benites. He was sent for a computed tomography scan of the brain which revealed evidence of a large left MCA stroke. There was no evidence of any hemorrhagic transformation or mass effect. The patient was advised admission to the hospital for further evaluation. 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 Apparently suffered the stroke in 1990. 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 He does have a prosthesis with the right leg but does not use it secondary to pain symptoms. The patient does have history of underlying cognitive impairment and is currently taking Namenda 10 mg twice a day. He is able to answer some questions fairly well but does have difficulty concentrating and keeping his focus. The patient denies any headache at this time. 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 He does have a colostomy bag. He does have a caregiver who helps him at home on a daily basis. She is there for several hours. He does have to change his colostomy bag quite frequently. As noted his CAT scan of the brain failed to reveal any evidence of new or acute stroke or hemorrhage. He is now been admitted and neurology has been consulted for further evaluation and recommendations. Review of Systems All systems: negative Constitutional: Denies chills, Denies fever Eyes: denies blurred vision, denies pain Ears, nose, mouth and throat: Denies headache, Denies sore throat Cardiovascular: Denies chest pain, Denies shortness of breath Respiratory: Denies cough Gastrointestinal: Denies abdominal pain, Denies diarrhea, Denies nausea, Denies vomiting Musculoskeletal: Denies myalgias Integumentary: Denies pruritus, Denies rash Neurological: Reports aphasia, Reports change in mentation (BDA rate 70. All), Reports change in speech, Reports confusion, Reports hearing difficulties ( Finishing the dictation you), Reports paresthesias, Denies numbness, Denies weakness Psychiatric: Denies anxiety, Denies depression Endocrine: Denies fatigue, Denies weight change Past Medical History Past Medical History: Coronary Artery Disease (CAD), Cancer, CVA/TIA, Deep Vein Thrombosis (DVT), Hyperlipidemia, Hypertension, Memory Impairment, Prostate Disorder, Seizure Disorder, Skin Disorder, Vascular Disorder Additional Past Medical History / Comment(s): 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 History of Any Multi-Drug Resistant Organisms: MRSA Date of last positivie culture/infection: 2012 MDRO Source:: rt leg Past Surgical History: Bowel Resection, Coronary Bypass/CABG, Heart Catheterization, Orthopedic Surgery, Tonsillectomy Additional Past Surgical History / Comment(s): 1990 CABG, rt above knee amputation-has'nt been using his prothesis because it was causing him pain when he was up on it. , bowel resection with colostomy, Angiograms, lt fem bypass and rt leg stent, bilateral cataracts removed with lens implants, L foot toe surgery, surgery to reattach left little finger, rt eyelid surgery Past Anesthesia/Blood Transfusion Reactions: No Reported Reaction Additional Past Anesthesia/Blood Transfusion Reaction / Comment(s): difficuly waking up after sx (per son) Smoking Status: Former smoker - Past Family History Mother Family Medical History: Deep Vein Thrombosis (DVT) Additional Family Medical History / Comment(s): Mother had DVTs in her legs and from this. Father Family Medical History: Cancer Additional Family Medical History / Comment(s): HEART PROBLEMS Medications and Allergies Home Medications Medication Instructions Recorded Confirmed Type Cholecalciferol [Vitamin D3] 1,000 unit PO DAILY 01/19/14 12/13/17 History Finasteride 5 mg PO HS 01/19/14 12/13/17 History Nitroglycerin Sl Tabs [Nitrostat] 0.4 mg SL Q5M PRN 01/19/14 12/13/17 History Gabapentin 600 mg PO BID 04/14/15 12/13/17 History amLODIPine [Norvasc] 5 mg PO DAILY 04/14/15 12/13/17 History Ascorbic Acid [Vitamin C] 500 mg PO DAILY@1200 09/20/16 12/13/17 History Aspirin [Adult Low Dose Aspirin EC] 81 mg PO DAILY 09/20/16 12/13/17 History Fluticasone Nasal [place] [Flonase 1 spray EA NOSTRIL BID PRN 09/20/16 12/13/17 History Nasal [place]] Furosemide [Lasix] 20 mg PO DAILY 09/20/16 12/13/17 History Quinapril HCl [Accupril] 40 mg PO QAM 09/20/16 12/13/17 History Allopurinol [Zyloprim] 100 mg PO BID 03/29/17 12/13/17 History Hydrocodone/Acetaminophen [[place] 1 tab PO TID 03/29/17 12/13/17 History 10-325] Magnesium Oxide [Mag-Ox] 250 mg PO DAILY 03/29/17 12/13/17 History Simvastatin [Zocor] 20 mg PO HS 03/29/17 12/13/17 History Terazosin [Hytrin] 5 mg PO HS 03/29/17 12/13/17 History Memantine [Namenda] 10 mg PO BID 06/07/17 12/13/17 History Meclizine [Antivert] 12.5 mg PO BID 08/16/17 12/13/17 History Warfarin Sodium [Coumadin] 2.5 mg PO SUTUTHSA 12/13/17 12/13/17 History Warfarin [Coumadin] 5 mg PO MOWEFR 12/13/17 12/13/17 History Allergies Allergy/AdvReac Type Severity Reaction Status Date / Time alprazolam [From Xanax] Allergy Rash/Hives Verified 12/13/17 11:18 morphine Allergy Rash/Hives Verified 12/13/17 11:18 Penicillins Allergy Unknown Verified 12/13/17 11:18 Childhood Physical Examination - Vital Signs Vital Signs: Vital Signs Temp Pulse Pulse Resp BP BP Pulse Ox 12/13/17 17:44 97.6 F 72 18 112/68 96 12/13/17 14:37 98 F 68 18 110/56 98 12/13/17 13:37 60 18 111/69 96 12/13/17 10:45 98.1 F 71 18 140/67 96 Intake and Output 12/13/17 12/13/17 12/13/17 06:59 14:59 22:59 Output Total 1150 300 Balance -1150 -300 Output: Urine 1150 300 Straight 1150 Other: Weight 81.647 kg - Constitutional General appearance: average body habitus, cooperative - EENT EENT: PERRL, mucous membranes moist - Respiratory Respiratory: lungs clear, normal breath sounds - Cardiovascular Cardiovascular: regular rate, normal S1, normal S2 Extremities: no peripheral edema bilaterally - Gastrointestinal Gastrointestinal: normoactive bowel sounds - Integumentary Integumentary: normal - Neurologic Cranial nerve examination: PERRL, EOMI, VFF, V1/V2/V3 grossly intact, intact gag reflex, intact corneal reflex, facial droop (Patient has right upper motor neuron facial droop.), normal palatal elevation Speech examination: intact Sensorimotor examination: intact Motor examination - right side: 2/5: biceps, triceps, wrist flexion, wrist extension, astrophysics teacher, hip flexors, knee extensors, dorsiflexion, toe extension (EHL) , plantarflexion Motor examination - left side: 4/5: biceps, triceps, wrist flexion, wrist extension, astrophysics teacher, hip flexors, knee extensors, dorsiflexion, toe extension (EHL) , plantarflexion Detailed sensory examination: intact Reflex and gait examination: intact Reflexes: 1+: ankle, bicep, knee, tricep - Musculoskeletal Musculoskeletal: no pain - Psychiatric Psychiatric: mood/affect appropriate, cooperative Results - Laboratory Findings CBC and BMP: 12/13/17 11:23 12/13/17 11:23 Abnormal Lab Findings: Abnormal Labs 12/13/17 12/13/17 12/13/17 11:23 11:23 11:23 Lymphocytes # 0.9 L PT INR APTT Chloride 108 H Glucose 112 H AST 14 L ALT 19 L Total Creatine Kinase 39 L 12/13/17 11:23 Lymphocytes # PT 26.4 H INR 2.9 H APTT 34.6 H Chloride Glucose AST ALT Total Creatine Kinase Assessment and Plan (1) CVA (cerebral vascular accident) Current Visit: Yes Status: Acute Code(s): I63.9 - CEREBRAL INFARCTION, UNSPECIFIED SNOMED Code(s): 345537617 (2) Acute encephalopathy Current Visit: No Status: Acute Code(s): G93.40 - ENCEPHALOPATHY, UNSPECIFIED SNOMED Code(s): 15870616 (3) Bilateral occipital neuralgia Current Visit: No Status: Acute Code(s): M54.81 - OCCIPITAL NEURALGIA SNOMED Code(s): 31384945 Plan: This patient is a 82-year-old right-handed white male who was admitted to hospital today with symptoms of increased confusion and speech impairment. He has a history of having suffered a large left MCA stroke in 1990. He had been coming along fairly well but does require extra help at home and does have a caregiver. Apparently the caregiver noted change in his mentation today with increased confusion and possibly worsening right-sided weakness. He was brought into the emergency room today for further evaluation. He was seen in the ER at [facility] by Dr. Benites. He was sent for a computed tomography scan of the brain which revealed evidence of degenerative and remote ischemic changes with no definite evidence of acute intracranial hemorrhage or mass effect. CAT scan does reveal a large left MCA stroke which she suffered in 1990. The patient does seem to be doing somewhat better today today terms of his speech and cognition. As noted CAT scan failed to reveal any evidence of acute stroke. His expressive aphasia does seem to be showing improvement today as well. His clinical symptoms suggest possibility of left hemispheric TIA. He is currently on Coumadin therapy and should be closely monitored with his INR. Would recommend to maintain the INR between 23 at all times. We will have physical therapy and speech therapy work with the patient. Patient has history of underlying mild dementia and should continue on Namenda 10 mg twice a day. We'll await further recommendations from physical therapy in terms of ongoing subacute rehab needs. We will continue close neurological follow-up for the patient during this admission. His overall prognosis at this time remains guarded. Case was discussed at length with the patient. We will continue close neurological follow-up with this patient during this admission. His overall prognosis as noted remains guarded. Time with Patient: Greater than 30
[2017-12-14 00:53] LABS: Cholesterol 103 mg/dL (<200); HDL Cholesterol 53 mg/dL (40-60); LDL Cholesterol,Calculated 32 mg/dL (0-99); Triglycerides 88 mg/dL (<150)
[2017-12-14] MEDS: ALLOPURINOL 100 MG TAB PO SCH ×2 (09:53→21:41)
[2017-12-14] MEDS: ASPIRIN 81 MG PO SCH (09:53)
[2017-12-14] MEDS: MEMANTINE 10 MG TAB PO SCH ×2 (09:53→21:41)
[2017-12-14] MEDS: CHOLECALCIFEROL 1,000 UNIT TAB PO SCH (09:53)
[2017-12-14] MEDS: amLODIPine 5 MG TAB PO SCH (09:53)
[2017-12-14] MEDS: MECLIZINE 12.5 MG TAB PO SCH ×2 (09:53→21:41)
[2017-12-14] MEDS: FUROSEMIDE 20 MG TAB PO SCH (09:54)
[2017-12-14] MEDS: LISINOPRIL 20 MG TAB PO SCH (09:54)
[2017-12-14] MEDS: ASCORBIC ACID 500 MG TAB PO SCH (09:54)
[2017-12-14] MEDS: GABAPENTIN 300 MG CAP PO SCH ×2 (09:54→21:41)
[2017-12-14] MEDS: MAGNESIUM OXIDE 400 MG TAB PO SCH (09:54)
[2017-12-14] MEDS: HYDROcodone/APAP 10-325MG 1 EACH TAB PO SCH ×3 (09:56→21:40)
[2017-12-14 10:19] LABS: INR 3.1 (<1.2); Prothrombin Time 27.4 sec (9.0-12.0)
--- NOTE | 2017-12-14 12:12 | P.PN ---
Subjective Patient resting in bed. patient is baseline in mentation and communication Objective - Vital Signs Vital signs: Vital Signs Temp 97.3 F L 12/14/17 08:00 Pulse 76 12/14/17 08:00 Resp 18 12/14/17 08:00 BP 139/65 12/14/17 08:00 Pulse Ox 94 L 12/14/17 08:00 Intake & Output 12/13/17 12/14/17 12/14/17 18:59 06:59 18:59 Output Total 1450 Balance -1450 Weight 81.647 kg 84 kg Output: Urine 1450 Straight 1150 Other: Voiding Method Urinal # Voids 2 2 - Constitutional General appearance: Present: mild distress - EENT Eyes: Present: ptosis Ears: bilateral: normal - Neck Neck: Present: normal ROM Carotids: bilateral: upstroke normal - Respiratory Respiratory: bilateral: CTA - Cardiovascular Rhythm: regular - Gastrointestinal General gastrointestinal: Present: soft - Integumentary Integumentary: Present: normal - Musculoskeletal Musculoskeletal: Present: generalized weakness - Psychiatric Psychiatric Comment(s): Expressive dysphasia - Labs CBC & Chem 7: 12/13/17 11:23 12/13/17 11:23 Labs: Abnormal Lab Results - Last 24 Hours (Table) 12/13/17 12/13/17 12/13/17 Range/Units 11:23 11:23 11:23 PT 26.4 H (9.0-12.0) sec INR 2.9 H (<1.2) APTT 34.6 H (22.0-30.0) sec Chloride 108 H (98-107) mmol/L Glucose 112 H (74-99) mg/dL AST 14 L (17-59) U/L ALT 19 L (21-72) U/L Total Creatine Kinase 39 L (55-170) U/L 12/14/17 Range/Units 09:45 PT 27.4 H (9.0-12.0) sec INR 3.1 H (<1.2) APTT (22.0-30.0) sec Chloride (98-107) mmol/L Glucose (74-99) mg/dL AST (17-59) U/L ALT (21-72) U/L Total Creatine Kinase (55-170) U/L - Imaging and Cardiology Chest x-ray: report reviewed CT Scan - head: report reviewed Assessment and Plan Plan: Assessment CVA with the encephalopathy Bilateral occipital neuralgia Coronary disease with history of CABG Carotid artery disease History of cancer with bowel resection History of CVA with right-sided weakness History of DVT History of right lower leg amputation secondary to peripheral vascular disease COPD Hypertension Hyperlipidemia Memory impairment Seizure disorder BPH Plan Continue consultation with neurology Patient requesting consultation with Dr. Hoover or carotid artery disease
[2017-12-14] MEDS ORDERED: WARFARIN 5 MG TAB PO SCH ×2 (18:00)
--- NOTE | 2017-12-14 20:23 | P.PN ---
Subjective Progress Note Date: 12/14/17 This patient is a 82-year-old right-handed white male who was admitted yesterday to the hospital for evaluation of altered mental status and increased confusion. 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 There was concern he may have had possible new areas of stroke involvement as he appeared to be more confused initially. Yesterday on examination he appeared to have evidence of improvement in his baseline mentation. He was felt to have some degree of underlying metabolic encephalopathy. Review of his CAT scan of the brain revealed evidence of his large left MCA stroke which is chronic. There was no evidence of any hemorrhagic transformation or mass effect. He does have multiple complex medical issues and apparently has some degree of carotid artery disease and is requested a consultation with Dr. Hoover for evaluation of carotid artery disease. Apparently he has known history of carotid artery stenosis in the past. Neurologically he is showing improvement in his cognitive functioning today and is communicating better. We will continue to follow his progress closely during this admission. He continues to show evidence of right-sided weakness from his old stroke. No other new findings have been noted. He does have history of underlying cognitive impairment in the past. He is being treated for this condition as well. We will continue close neurological follow-up for the patient during this admission. Objective - Vital Signs Vital signs: Vital Signs Temp 97.8 F 12/14/17 16:00 Pulse 68 12/14/17 16:00 Resp 18 12/14/17 16:00 BP 101/43 12/14/17 16:00 Pulse Ox 92 L 12/14/17 16:00 Intake & Output 12/14/17 12/14/17 12/15/17 06:59 18:59 06:59 Intake Total 480 Output Total 500 Balance -20 Weight 84 kg Intake: Oral 480 Output: Urine 500 Other: Voiding Method Urinal Urinal # Voids 2 2 - Exam Physical examination: PHYSICAL EXAMINATION: Patient is resting comfortably in bed. VITAL SIGNS: Blood pressure is [101/43]. Heart rate is [68]. Respiration is [18] . Temperature is [97.8]. HEENT: Head is atraumatic, neck is supple, there were no carotid bruits. CHEST: Lungs are clear to auscultation and percussion. CARDIAC: S1, S2 normal rate and rhythm. There is no murmur. ABDOMEN: Soft and nontender. Bowel sounds are present. EXTREMITIES: There is no pedal edema. Peripheral pulses are present. Neurological examination: Patient's neurological examination is unchanged from yesterday. He has a dense right-sided hemiplegia from his previous stroke. - Labs CBC & Chem 7: 12/13/17 11:23 12/13/17 11:23 Labs: Abnormal Lab Results - Last 24 Hours (Table) 12/14/17 Range/Units 09:45 PT 27.4 H (9.0-12.0) sec INR 3.1 H (<1.2) Assessment and Plan (1) CVA (cerebral vascular accident) Current Visit: Yes Status: Acute Code(s): I63.9 - CEREBRAL INFARCTION, UNSPECIFIED SNOMED Code(s): 403705413 (2) Acute encephalopathy Current Visit: No Status: Acute Code(s): G93.40 - ENCEPHALOPATHY, UNSPECIFIED SNOMED Code(s): 72896290 (3) Bilateral occipital neuralgia Current Visit: No Status: Acute Code(s): M54.81 - OCCIPITAL NEURALGIA SNOMED Code(s): 80375685 Plan: This patient is a 82-year-old male who was admitted to hospital for evaluation of increased confusion and mental status changes. He has evidence of an underlying metabolic encephalopathy which is slowly improving. CAT scan of the brain failed to reveal any evidence of new or acute stroke or hemorrhage. He has evidence of a large left MCA stroke in the past. His mentation is somewhat improved today. He is requesting consultation from cardiology with Dr. Hoover for further evaluation of carotid artery disease. We will await their further recommendations. Neurologically the patient remains stable with no new changes compared to yesterday. His neurological exam remains unchanged. We will continue close neurological follow-up for the patient during this admission. His overall prognosis remains very guarded given his multiple complex medical issues. We will continue close neurological follow-up for the patient during this admission.
[2017-12-14] MEDS: FINASTERIDE 5 MG TAB PO SCH (21:40)
[2017-12-14] MEDS: ATORVASTATIN 10 MG TAB PO SCH (21:41)
[2017-12-14] MEDS: DOXAZOSIN 4 MG TAB PO SCH (21:41)
[2017-12-15 06:35] LABS: Prothrombin Time 26.8 sec (9.0-12.0)
[2017-12-15] MEDS: MAGNESIUM OXIDE 400 MG TAB PO SCH (10:05)
[2017-12-15] MEDS: amLODIPine 5 MG TAB PO SCH (10:05)
[2017-12-15] MEDS: MEMANTINE 10 MG TAB PO SCH ×2 (10:05→20:30)
[2017-12-15] MEDS: GABAPENTIN 300 MG CAP PO SCH ×2 (10:05→20:30)
[2017-12-15] MEDS: ASCORBIC ACID 500 MG TAB PO SCH (10:05)
[2017-12-15] MEDS: ALLOPURINOL 100 MG TAB PO SCH ×2 (10:05→20:30)
[2017-12-15] MEDS: MECLIZINE 12.5 MG TAB PO SCH ×2 (10:05→20:30)
[2017-12-15] MEDS: CHOLECALCIFEROL 1,000 UNIT TAB PO SCH (10:05)
[2017-12-15] MEDS: LISINOPRIL 20 MG TAB PO SCH ×2 (10:06→13:24)
[2017-12-15] MEDS: ASPIRIN 81 MG PO SCH (10:06)
[2017-12-15] MEDS: FUROSEMIDE 20 MG TAB PO SCH (10:06)
[2017-12-15] MEDS: HYDROcodone/APAP 10-325MG 1 EACH TAB PO SCH ×3 (10:10→20:30)
--- NOTE | 2017-12-15 11:49 | P.PN ---
Subjective Patient baseline with mentation. Patient wanting consultation with Dr. Hoover regarding carotid artery disease. Hopeful discharge soon Objective - Vital Signs Vital signs: Vital Signs Temp 98.8 F 12/15/17 09:11 Pulse 73 12/15/17 09:11 Resp 18 12/15/17 11:31 BP 99/54 12/15/17 09:11 Pulse Ox 95 12/15/17 09:11 Intake & Output 12/14/17 12/15/17 12/15/17 18:59 06:59 18:59 Intake Total 480 490 610 Output Total 500 200 200 Balance -20 290 410 Weight 79.5 kg Intake: IV 10 10 Invasive Line 1 10 10 Oral 480 480 600 Output: Urine 500 Stool 200 200 Other: Voiding Method Urinal Urinal Urinal # Voids 2 1 - Constitutional General appearance: Present: mild distress - EENT Eyes: Present: PERRLA, ptosis Ears: bilateral: normal - Neck Neck: Present: normal ROM - Respiratory Respiratory: bilateral: CTA - Cardiovascular Rhythm: regular - Gastrointestinal Gastrointestinal Comment(s): Colostomy bag General gastrointestinal: Present: soft - Integumentary Integumentary: Present: normal - Neurologic Neurologic Comment(s): Right-sided weakness proptosis right eye - Musculoskeletal Musculoskeletal: Present: right sided weakness - Psychiatric Psychiatric: Present: A&O x's 3 - Labs CBC & Chem 7: 12/13/17 11:23 12/13/17 11:23 Labs: Abnormal Lab Results - Last 24 Hours (Table) 12/15/17 Range/Units 06:00 PT 26.8 H (9.0-12.0) sec INR 3.0 H (<1.2) Assessment and Plan Plan: Assessment CVA/TIA Bilateral occipital neuralgia Encephalopathy secondary to CVA History of coronary disease with CABG Bowel cancer with colostomy History of right-sided CVA History of DVT Amputation right lower leg COPD Memory impairment Seizure disorder BPH Hypertension Hyperlipidemia Carotid artery disease Plan Continue consultation with neurology Consultation with Dr. Hoover regarding carotid artery disease
--- NOTE | 2017-12-15 14:00 | CDI ---
Last Revision, February 2017 Documentation Clarification Form Date: 12/15/2017 1:49:18 PM From: Morelia DominguezDWAYNE, CCDS Admit Date: 12/13/2017 2:44:00 PM Patient Name: Gildardo Khanna Visit Number: [id number] Discharge Date: ATTENTION: The Clinical Documentation Specialists (CDI) and [facility] Coding Staff appreciate your assistance in clarifying documentation. Please respond to the clarification below the line at the bottom and electronically sign. The CDI & [facility] Coding staff will review the response and follow-up if needed. Please note: Queries are made part of the Legal Health Record. If you have any questions, please contact the author of this message via ITS. Krish Manuel MD: CVA is documented as a diagnosis in the History & Physical & subsequent progress notes with mentation back to baseline. Per the neurological progress note 12/14: "Review of his CAT scan of the brain revealed evidence of his large left MCA stroke which is chronic. There was no evidence of any hemorrhagic transformation or mass effect." History/risk factors: Previous large left MCA stroke, Carotid artery stenosis, Cognitive impairment, Right side hemiplegia from previous stroke. CAD, Bowel CA status post resection, DVT, PVD with rt BKA, COPD, Seizure Disorder, Hypertension & Hyperlipidemia. Clinical Indicators: Presented with increased confusion. CT Brain: Degenerative & suspected remote ischemic change w/no definite evidence of acute intracranial hemorrhage or mass effect. Treatment: Neuro consult, IV fluid bolus, Nitro sl, Neuro assessments, swallow screen. In your professional opinion, please clarify each of the following: CVA o Ruled In o Due to Stenosis, Ischemia, Embolic, Thrombolytic o Specify location if known: o Ruled Out Other (please specify) Unable to Determine TIA o Ruled In o Ruled Out MTDD
[2017-12-15] MEDS ORDERED: WARFARIN 2.5 MG TAB PO SCH ×2 (18:00)
[2017-12-15] MEDS: FINASTERIDE 5 MG TAB PO SCH (20:30)
[2017-12-15] MEDS: ATORVASTATIN 10 MG TAB PO SCH (20:30)
[2017-12-15] MEDS: DOXAZOSIN 4 MG TAB PO SCH (20:30)
--- NOTE | 2017-12-15 21:48 | P.PN ---
Subjective Progress Note Date: 12/15/17 This patient is a 82-year-old right-handed white male who was admitted to the hospital for evaluation of altered mental status and increased confusion. 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 There was concern he may have had possible new areas of stroke involvement as he appeared to be more confused initially. Yesterday on examination he appeared to have evidence of improvement in his baseline mentation. He was felt to have some degree of underlying metabolic encephalopathy. His mental status today continues to do quite well for his age. He is able to answer most questions appropriately. Review of his CAT scan of the brain revealed evidence of his large left MCA stroke which is chronic. There was no evidence of any hemorrhagic transformation or mass effect. He does have multiple complex medical issues and apparently has some degree of carotid artery disease and is requested a consultation with Dr. Hoover for evaluation of carotid artery disease. Consultation was placed for Dr. Hoover yesterday. We are still awaiting cardiology consultation regarding possible carotid artery stenosis. Apparently he has known history of carotid artery stenosis in the past. Neurologically he is showing improvement in his cognitive functioning today and is communicating better. We will continue to follow his progress closely during this admission. He continues to show evidence of right-sided weakness from his old stroke. No other new findings have been noted. He does have history of underlying cognitive impairment in the past. He is being treated for this condition as well. We will continue close neurological follow-up for the patient during this admission. Objective - Vital Signs Vital signs: Vital Signs Temp 98.2 F 12/15/17 20:00 Pulse 78 12/15/17 20:00 Resp 18 12/15/17 20:00 BP 109/72 12/15/17 20:00 Pulse Ox 92 L 12/15/17 20:00 Intake & Output 12/15/17 12/15/17 12/16/17 06:59 18:59 06:59 Intake Total 490 1054 10 Output Total 200 1750 175 Balance 290 -696 -165 Weight 79.5 kg Intake: IV 10 10 10 Invasive Line 1 10 10 10 Oral 480 1044 Output: Urine 1550 Straight 1400 Stool 200 200 175 Other: Voiding Method Urinal Urinal Urinal Indwelling Catheter # Voids 1 1 # Bowel Movements 1 - Exam Physical examination: PHYSICAL EXAMINATION: Patient is resting comfortably in bed. VITAL SIGNS: Blood pressure is [109/72]. Heart rate is [67]. Respiration is [16] . Temperature is [98.2]. HEENT: Head is atraumatic, neck is supple, there were no carotid bruits. CHEST: Lungs are clear to auscultation and percussion. CARDIAC: S1, S2 normal rate and rhythm. There is no murmur. ABDOMEN: Soft and nontender. Bowel sounds are present. EXTREMITIES: There is no pedal edema. Peripheral pulses are present. Neurological examination: Patient's neurological examination is unchanged from yesterday. He has a dense right-sided hemiplegia from his previous stroke. - Labs CBC & Chem 7: 12/13/17 11:23 12/13/17 11:23 Labs: Abnormal Lab Results - Last 24 Hours (Table) 12/15/17 Range/Units 06:00 PT 26.8 H (9.0-12.0) sec INR 3.0 H (<1.2) Assessment and Plan (1) CVA (cerebral vascular accident) Current Visit: Yes Status: Acute Code(s): I63.9 - CEREBRAL INFARCTION, UNSPECIFIED SNOMED Code(s): 335845298 (2) Acute encephalopathy Current Visit: No Status: Acute Code(s): G93.40 - ENCEPHALOPATHY, UNSPECIFIED SNOMED Code(s): 04711906 (3) Bilateral occipital neuralgia Current Visit: No Status: Acute Code(s): M54.81 - OCCIPITAL NEURALGIA SNOMED Code(s): 48233932 Plan: This patient is a 82-year-old male who was admitted to hospital for evaluation of increased confusion and mental status changes. He has evidence of an underlying metabolic encephalopathy which is slowly improving. CAT scan of the brain failed to reveal any evidence of new or acute stroke or hemorrhage. He has evidence of a large left MCA stroke in the past. On neurological examination he has residual right-sided hemiparesis. His mentation is somewhat improved today. He is requesting consultation from cardiology with Dr. Hoover for further evaluation of carotid artery disease. Cardiology consultation was placed yesterday and we are waiting for Dr. Hoover to evaluate this patient. We will await their further recommendations. Neurologically the patient remains stable with no new changes compared to yesterday. His neurological exam remains unchanged. We will continue close neurological follow-up for the patient during this admission. His overall prognosis remains very guarded given his multiple complex medical issues. We will continue close neurological follow-up for the patient during this admission.
--- NOTE | 2017-12-16 09:50 | CONS ---
CONSULTATION CHIEF COMPLAINT: Evaluation of coronary artery disease. Mr. Khanna is an 82-year-old gentleman who presented to hospital with slurred speech and mild confusion. Cardiology had been consulted because of his cardiac history. He has known coronary artery disease and has had prior bypass surgery. He has peripheral vascular disease status post right lower leg amputation and had prior CVA with left- sided weakness. On this admission, he appears somewhat confused and is not able to narrate his story well, but denies chest pain or difficulty in breathing. Other than the speech difficulty, he does not have any other new neurological deficits. PAST MEDICAL HISTORY: Significant for CVA, coronary artery disease, status post CABG, hypertension, dyslipidemia, DVT, prostate disorder, seizures. PAST SURGICAL HISTORY: Significant for CAD status post CABG, tonsillectomy. MEDICATIONS: Medications are as charted. FAMILY HISTORY, SOCIAL HISTORY AND REVIEW OF SYSTEMS: I am unable to obtain from the patient. The patient is currently on Neurontin, Norvasc, aspirin Lasix, Accupril, Zocor, Hytrin, Namenda, Antivert, Coumadin. PHYSICAL EXAMINATION: On exam, he is comfortable at rest. Heart rate is 64 beats per minute. Blood pressure 96/55. Respiratory rate is 18. Chest exam reveals diminished air entry at the bases. Heart exam reveals first and second heart sounds. No gallop. Abdomen is soft. Examination of the extremities shows right below-knee amputation. EKG shows sinus rhythm with right bundle branch block and left anterior fascicular block. LABS: Labs show that the INR is 3. Hemoglobin is 14.4. Potassium is 4.1. LDL cholesterol is 32. ASSESSMENT: 1. History of cerebrovascular accident. 2. Coronary artery disease, status post coronary artery bypass grafting. 3. Dyslipidemia. 4. Hypertension. PLAN: From cardiac standpoint, he is stable. I reviewed his CTA of the brain that was done in August, most recent CT does not show any new stroke, it only shows prior old stroke. CTA of the carotids showed evidence of an old stroke in the left middle cerebral artery distribution. There is a moderate stenosis at the origin of the right internal carotid artery, but it was not critical. We will repeat a carotid on him. MMODL / IJN: [id number] /
[2017-12-16] MEDS: MECLIZINE 12.5 MG TAB PO SCH (10:56)
[2017-12-16] MEDS: MAGNESIUM OXIDE 400 MG TAB PO SCH (10:56)
[2017-12-16] MEDS: FUROSEMIDE 20 MG TAB PO SCH (10:56)
[2017-12-16] MEDS: ALLOPURINOL 100 MG TAB PO SCH (10:56)
[2017-12-16] MEDS: amLODIPine 5 MG TAB PO SCH (10:56)
[2017-12-16] MEDS: ASCORBIC ACID 500 MG TAB PO SCH (10:56)
[2017-12-16] MEDS: MEMANTINE 10 MG TAB PO SCH (10:56)
[2017-12-16] MEDS: ASPIRIN 81 MG PO SCH (10:56)
[2017-12-16] MEDS: HYDROcodone/APAP 10-325MG 1 EACH TAB PO SCH ×2 (10:56→16:00)
[2017-12-16] MEDS: CHOLECALCIFEROL 1,000 UNIT TAB PO SCH (10:56)
[2017-12-16] MEDS: GABAPENTIN 300 MG CAP PO SCH (10:57)
[2017-12-16] MEDS: LISINOPRIL 20 MG TAB PO SCH (10:57)
[2017-12-16 10:58] VITALS: RESP 16; TEMP 97.2
--- NOTE | 2017-12-16 11:48 | US ---
EXAMINATION TYPE: US carotid duplex BILAT DATE OF EXAM: 12/16/2017 COMPARISON: CT CLINICAL HISTORY: CAD. EXAM MEASUREMENTS: RIGHT: Peak Systolic Velocity (PSV) cm/sec ----- Right CCA: 93.8 ----- Right ICA: 122.6 ----- Right ECA: 192.6* ICA/CCA ratio: 1.3 RIGHT: End Diastole cm/sec ----- Right CCA: 11.6 ----- Right ICA: 35.4 ----- Right ECA: 11.4 LEFT: Peak Systolic Velocity (PSV) cm/sec ----- Left CCA: 50.5 ----- Left ICA: no flow ----- Left ECA: 337.2 ICA/CCA ratio: occluded ICA LEFT: End Diastole cm/sec ----- Left CCA: 0.0 ----- Left ICA: no flow ----- Left ECA: 0.0 VERTEBRALS (direction of flow): Right Vertebral: Antegrade Left Vertebral: Antegrade Rhythm: Normal Occluded left ICA, elevated velocities in bilateral ECA's. IMPRESSION: 1. The left ICA is occluded. 2. No significant hemodynamic stenosis on the right. Criteria for Assigning % of Stenosis / Diameter reduction (Estimation based on the indirect measurements of the internal carotid artery velocities (ICA PSV). 1. Normal (no stenosis)=ICA PSV < 125 cm/s: ratio < 2.0: ICA EDV<40 cm/s. 2. Less than 50% stenosis=ICA PSV < 125 cm/s: ratio < 2.0: ICA EDV<40 cm/s. 3. 50 to 69% stenosis=ICA PSV of 125 to 230 cm/s: ration 2.0 ? 4.0: ICA EDV 40-100 cm/s. 4. Greater than 70% stenosis to near occlusion= ICA PSV > 230 cm/s: ratio > 4.0: ICA EDV > 100 cm/s. 5. Near occlusion= ICA PSV velocities may be low or undetectable: variable ratio and ICA EDV. 6. Total occlusion=unable to detect flow.
--- NOTE | 2017-12-16 12:41 | ECHOF ---
Referral Reason:CAD MEASUREMENTS -------- HEIGHT: 170.2 cm WEIGHT: 78.9 kg BP: IVSd: 1.2 cm (0.6 - 1.1) LVIDd: 4.1 cm (3.9 - 5.3) LVPWd: 1.3 cm (0.6 - 1.1) IVSs: 1.3 cm LVIDs: 2.1 cm LVPWs: 1.7 cm Ao Diam: 3.5 cm (2.0 - 3.7) AV Cusp: 2.0 cm (1.5 - 2.6) LA Diam: 2.7 cm (2.7 - 3.8) MV EXCURSION: 14.577 mm (> 18.000) MV EF SLOPE: 60 mm/s (70 - 150) EPSS: 0.8 cm MV E Sam: 0.70 m/s MV DecT: 243 ms MV A Sam: 1.08 m/s MV E/A Ratio: 0.64 RAP: 5.00 mmHg RVSP: 9.27 mmHg FINDINGS -------- Sinus rhythm. This was a technically difficult study with suboptimal views. The left ventricular size is normal. There is mild concentric left ventricular hypertrophy. Overa ll left ventricular systolic function is normal with, an EF between 55 - 60 %. The right ventricle is normal in size and function. The left atrium is normal in size. The right atrium is normal in size. Lumason used The aortic valve was not well visualized. There is trace mitral regurgitation. Trace tricuspid regurgitation present. The right ventricular systolic pressure, as measured by Dopp ler, is 9.27mmHg. The pulmonic valve was not well visualized. The aortic root size is normal. There is no pericardial effusion. CONCLUSIONS -------- 1. Sinus rhythm. 2. This was a technically difficult study with suboptimal views. 3. The left ventricular size is normal. 4. There is mild concentric left ventricular hypertrophy. 5. Overall left ventricular systolic function is normal with, an EF between 55 - 60 %. 6. The left atrium is normal in size. 7. Lumason used 8. The aortic valve was not well visualized. 9. There is trace mitral regurgitation. 10. Trace tricuspid regurgitation present. 11. The right ventricular systolic pressure, as measured by Doppler, is 9.27mmHg. 12. The pulmonic valve was not well visualized. 13. The aortic root size is normal. 14. There is no pericardial effusion. WAREHOUSE RECORD CLERK: Sona Galarza RDCS
[2017-12-16 16:01] VITALS: BP 122/57; PULSE 72
--- NOTE | 2017-12-17 07:57 | DS ---
DISCHARGE SUMMARY I am covering for Dr. Champion. FINAL DIAGNOSES: 1. Acute cerebrovascular accident/transient ischemic attack. 2. Bilateral occipital neurology. 3. Encephalopathy secondary to cerebrovascular accident. 4. History of coronary artery bypass grafting. 5. History of bowel cancer with colostomy. 6. History of right-sided cerebrovascular accident. 7. History of deep vein thrombosis. 8. Amputation of the right lower leg. 9. chronic obstructive pulmonary disease. 10.History of memory impairment. 11.History of seizure disorder. 12.History of benign prostatic hypertrophy. 13.Hypertension. 14.Hyperlipidemia. 15.History of carotid artery disease. DISCHARGE DISPOSITION: The patient is being discharged in stable condition with guarded prognosis. HISTORY OF PRESENT ILLNESS: This 82-year-old gentleman with a past medical history of multiple medical problems as mentioned earlier admitted with features of cerebrovascular accident, transient ischemic attack. The patient was seen by Dr., Dr. Michelle, who opined in favor of cerebrovascular incident. Patient treated symptomatically. Patient improved significantly. Carotid Doppler was done. Recommended outpatient followup. Cardiology saw the patient. The patient is being discharged in stable condition with guarded prognosis. Carotid Doppler showed no significant stenosis on the right, but the left was occluded. On exam vitals are stable. Cardiovascular S1, S2. Abdomen soft. Nervous system diffusely weak. DISCHARGE ADVICE AND MEDICATIONS: 1. Discharge diet is cardiac diet. 2. Activity limited until followup. 3. Follow up with Dr. Champion in 2-3 days. 4. Follow up with Dr. Michelle as advised. 5. Follow up with Dr. Hoover and Urology as recommended. MEDICATIONS ARE: 1. Zyloprim 100 mg p.o. b.i.d. 2. Norvasc 5 mg p.o. 3. Vitamin C 500 mg p.o. 4. Aspirin 81 mg daily. 5. Vitamin D3 1000 daily. 6. Finasteride 5 mg q.h.s. 7. Flonase p.r.n. 8. Lasix 20 mg p.o. daily. 9. Gabapentin 600 mg p.o. b.i.d. 10.Hydrocodone 1 tablet p.o. t.i.d. 11.Magnesium oxide 250 mg p.o. daily. 12.Antivert 12.5 mg b.i.d. 13.Namenda 10 mg p.o. b.i.d. 14.Nitrostat 0.4 mg p.r.n. 15.Accupril 40 mg q.a.m. 16.Zocor 20 mg q.h.s. 17.Hytrin 5 mg q.h.s. 18.Coumadin 5 mg Tuesday, Tuesday, Tuesday and 2.5 mg Tuesday and Tuesday. Once again, the patient is being discharged in stable condition with guarded prognosis. MMODL / IJN: [id number] / MTDD
--- NOTE | 2017-12-19 11:35 | P.PN ---
Progress Note - Text Diagnosis addendum Acute CVA Per neurologist and hospitalist On aspirin and warfarin
== END 2017-12-16 17:00 | disposition home health service (06) | DRG 64 ==
LOC: EC 10:43 → 6SEL 14:44
PROVIDERS: ADMIT Family Medicine; ATTEND Family Medicine
DX: I63.89 Other cerebral infarction (principal); G93.41 Metabolic encephalopathy; I69.351 Hemiplegia and hemiparesis following cerebral infarction affecting right dominant side; E78.5 Hyperlipidemia, unspecified; G40.909 Epilepsy, unspecified, not intractable, without status epilepticus; I10 Essential (primary) hypertension; R29.703 NIHSS score 3; I25.10 Atherosclerotic heart disease of native coronary artery without angina pectoris; I45.10 Unspecified right bundle-branch block; I73.9 Peripheral vascular disease, unspecified; J44.9 Chronic obstructive pulmonary disease, unspecified; M54.81 Occipital neuralgia; N40.0 Benign prostatic hyperplasia without lower urinary tract symptoms; G62.9 Polyneuropathy, unspecified; I65.29 Occlusion and stenosis of unspecified carotid artery; M10.9 Gout, unspecified; Z79.899 Other long term (current) drug therapy; Z79.01 Long term (current) use of anticoagulants; Z79.82 Long term (current) use of aspirin; Z85.038 Personal history of other malignant neoplasm of large intestine; Z86.718 Personal history of other venous thrombosis and embolism; Z87.891 Personal history of nicotine dependence; Z89.611 Acquired absence of right leg above knee; Z95.1 Presence of aortocoronary bypass graft; Z93.3 Colostomy status; Z90.49 Acquired absence of other specified parts of digestive tract; Z88.5 Allergy status to narcotic agent; Z88.0 Allergy status to penicillin; Z88.8 Allergy status to other drugs, medicaments and biological substances; Z86.14 Personal history of Methicillin resistant Staphylococcus aureus infection; Z98.42 Cataract extraction status, left eye; Z98.41 Cataract extraction status, right eye; Z96.1 Presence of intraocular lens; Z82.49 Family history of ischemic heart disease and other diseases of the circulatory system; Z80.9 Family history of malignant neoplasm, unspecified
CPT/HCPCS: 36415; 70450; 71046; 80053; 80061; 81003; 82550; 82553; 84484; 85025; 85610; 85730; 93005; 93306; 93880; 94760; 99285

== ENCOUNTER 2018-02-12 09:02 | Observation (INO) | payer MEDICARE ==
[2018-02-12] MEDS ORDERED: SODIUM CHLORIDE 0.9% 500 ML 500 ML IV STA (09:25)
--- NOTE | 2018-02-12 10:07 | ED ---
General Adult HPI - General Chief complaint: Weakness Stated complaint: WEAKNESS Time Seen by Provider: 02/12/18 09:02 Source: patient, EMS, RN notes reviewed Mode of arrival: EMS Limitations: no limitations - History of Present Illness Initial comments: This is an 82-year-old male who presents emergency Department with a past medical history significant for stroke some altered mental status which is his baseline. Son called EMS because he appears to be getting weaker over the last few days but it is a generalized weakness. Patient is at home with his disabled . Son states he was getting to the point where he was unable to complete normal tasks of living. Patient is unable to give any history as to why is here when I ask him any questions he starts talking about his old stroke. Family indicates this is his baseline mental status. Son does not notice any new strokelike symptoms. There's been no fevers difficulty breathing or any indication that the patient was in any pain. - Related Data Home Medications Medication Instructions Recorded Confirmed Cholecalciferol [Vitamin D3] 1,000 unit PO DAILY@1200 01/19/14 02/12/18 Finasteride 5 mg PO DAILY 01/19/14 02/12/18 Nitroglycerin Sl Tabs [Nitrostat] 0.4 mg SL Q5M PRN 01/19/14 02/12/18 Gabapentin 600 mg PO BID 04/14/15 02/12/18 amLODIPine [Norvasc] 5 mg PO HS 04/14/15 02/12/18 Aspirin [Adult Low Dose Aspirin EC] 81 mg PO DAILY@1200 09/20/16 02/12/18 Furosemide [Lasix] 20 mg PO DAILY 09/20/16 02/12/18 Quinapril HCl [Accupril] 40 mg PO QAM 09/20/16 02/12/18 Hydrocodone/Acetaminophen [[place] 1 tab PO TID PRN 03/29/17 02/12/18 10-325] Magnesium Oxide [Mag-Ox] 250 mg PO DAILY@1200 03/29/17 02/12/18 Terazosin [Hytrin] 5 mg PO HS 03/29/17 02/12/18 Docusate [Colace] 100 mg PO DAILY PRN 02/12/18 02/12/18 Ibuprofen [Motrin] 600 mg PO BID 02/12/18 02/12/18 L.acidoph,Paracasei, B.lactis 1 cap PO DAILY@1200 02/12/18 02/12/18 [Probiotic] Allergies Allergy/AdvReac Type Severity Reaction Status Date / Time alprazolam [From Xanax] Allergy Rash/Hives Verified 02/12/18 12:22 morphine Allergy Rash/Hives Verified 02/12/18 12:22 Penicillins Allergy Unknown Verified 02/12/18 12:22 Childhood Review of Systems ROS Statement: Those systems with pertinent positive or pertinent negative responses have been documented in the HPI. ROS Other: All systems not noted in ROS Statement are negative. 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 History of Any Multi-Drug Resistant Organisms: MRSA Date of last positivie culture/infection: 2012 MDRO Source:: rt leg Past Surgical History: Bowel Resection, Coronary Bypass/CABG, Heart Catheterization, Orthopedic Surgery, Tonsillectomy Additional Past Surgical History / Comment(s): 1990 CABG, rt above knee amputation-has'nt been using his prothesis because it was causing him pain when he was up on it. , bowel resection with colostomy, Angiograms, lt fem bypass and rt leg stent, bilateral cataracts removed with lens implants, L foot toe surgery, surgery to reattach left little finger, rt eyelid surgery Past Anesthesia/Blood Transfusion Reactions: No Reported Reaction Additional Past Anesthesia/Blood Transfusion Reaction / Comment(s): difficuly waking up after sx (per son) Past Psychological History: No Psychological Hx Reported Smoking Status: Former smoker Past Alcohol Use History: None Reported Past Drug Use History: None Reported - Past Family History Mother Family Medical History: Deep Vein Thrombosis (DVT) Additional Family Medical History / Comment(s): Mother had DVTs in her legs and from this. Father Family Medical History: Cancer Additional Family Medical History / Comment(s): HEART PROBLEMS General Exam - General Exam Comments Initial Comments: GENERAL: Patient is well-developed and well-nourished. Patient is nontoxic and well- hydrated and is in no acute distress. ENT: Neck is soft and supple. No significant lymphadenopathy is noted. Oropharynx is clear. Moist mucous membranes. Neck has full range of motion without eliciting any pain. EYES: The sclera were anicteric and conjunctiva were pink and moist. Extraocular movements were intact and pupils were equal round and reactive to light. Eyelids were unremarkable. PULMONARY: Unlabored respirations. Good breath sounds bilaterally. No audible rales rhonchi or wheezing was noted. CARDIOVASCULAR: There is a regular rate and rhythm without any murmurs gallops or rubs. ABDOMEN: Soft and nontender with normal bowel sounds. Patient has a colostomy. No palpable organomegaly was noted. There is no palpable pulsatile mass. SKIN: Skin is clear with no lesions or rashes and otherwise unremarkable. NEUROLOGIC: Patient is alert and oriented 2. Cranial nerves II through XII are grossly intact. 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 Patient has a amputated right leg [id number] MUSCULOSKELETAL: Patient's left upper and lower extremity have full range of motion and limited. LYMPHATICS: No significant lymphadenopathy is noted Limitations: no limitations Course Vital Signs 02/12/18 09:08 Temperature 98.2 F Pulse Rate 77 Respiratory 22 Rate Blood Pressure 137/88 O2 Sat by Pulse 94 L Oximetry Medical Decision Making - Medical Decision Making EKG shows normal sinus rhythm at 63 bpm SC interval 290 QRS is 146 Q-T intervals 456 QTC is 466. Patient has a right branch block. Son states recently he was on hospice but they took him off because he no longer minute the criteria to be on hospice. Chest x-ray shows a chronic infiltrate. No acute changes. I spoke with because he wanted to admit the patient and get a consult for hospice. I wrote admitting orders I consult hospice. - Lab Data Result diagrams: 02/12/18 09:49 02/12/18 09:49 Lab Results 02/12/18 02/12/18 02/12/18 Range/Units 09:49 09:49 09:49 WBC 7.8 (3.8-10.6) k/uL RBC 4.39 (4.30-5.90) m/uL Hgb 13.3 (13.0-17.5) gm/dL Hct 40.7 (39.0-53.0) % MCV 92.9 (80.0-100.0) fL MCH 30.3 (25.0-35.0) pg MCHC 32.6 (31.0-37.0) g/dL RDW 14.5 (11.5-15.5) % Plt Count 182 (150-450) k/uL Neutrophils % 68 % Lymphocytes % 13 % Monocytes % 8 % Eosinophils % 8 % Basophils % 0 % Neutrophils # 5.3 (1.3-7.7) k/uL Lymphocytes # 1.0 (1.0-4.8) k/uL Monocytes # 0.7 (0-1.0) k/uL Eosinophils # 0.6 (0-0.7) k/uL Basophils # 0.0 (0-0.2) k/uL PT (9.0-12.0) sec INR (<1.2) APTT (22.0-30.0) sec Sodium 146 H (137-145) mmol/L Potassium 4.3 (3.5-5.1) mmol/L Chloride 114 H (98-107) mmol/L Carbon Dioxide 21 L (22-30) mmol/L Anion Gap 11 mmol/L BUN 19 (9-20) mg/dL Creatinine 1.12 (0.66-1.25) mg/dL Est GFR (CKD-EPI)AfAm 72 (>60 ml/min/1.73 sqM) Est GFR (CKD-EPI)NonAf 62 (>60 ml/min/1.73 sqM) Glucose 116 H (74-99) mg/dL Plasma Lactic Acid Deni (0.7-2.0) mmol/L Calcium 9.5 (8.4-10.2) mg/dL Magnesium 1.9 (1.6-2.3) mg/dL Total Bilirubin 0.5 (0.2-1.3) mg/dL AST 28 (17-59) U/L ALT 18 L (21-72) U/L Alkaline Phosphatase 57 (38-126) U/L Total Creatine Kinase 555 H (55-170) U/L CK-MB (CK-2) 3.1 H (0.0-2.4) ng/mL CK-MB (CK-2) Rel Index 0.6 Troponin I <0.012 (0.000-0.034) ng/mL Total Protein 7.1 (6.3-8.2) g/dL Albumin 3.6 (3.5-5.0) g/dL Urine Color Urine Appearance (Clear) Urine pH (5.0-8.0) Ur Specific [place] (1.001-1.035) Urine Protein (Negative) Urine Glucose (UA) (Negative) Urine Ketones (Negative) Urine Blood (Negative) Urine Nitrite (Negative) Urine Bilirubin (Negative) Urine Urobilinogen (<2.0) mg/dL Ur Leukocyte Esterase (Negative) Urine RBC (0-5) /hpf Urine WBC (0-5) /hpf Ur Squamous Epith Cells (0-4) /hpf Urine Mucus (None) /hpf 02/12/18 02/12/18 02/12/18 Range/Units 09:49 09:49 11:39 WBC (3.8-10.6) k/uL RBC (4.30-5.90) m/uL Hgb (13.0-17.5) gm/dL Hct (39.0-53.0) % MCV (80.0-100.0) fL MCH (25.0-35.0) pg MCHC (31.0-37.0) g/dL RDW (11.5-15.5) % Plt Count (150-450) k/uL Neutrophils % % Lymphocytes % % Monocytes % % Eosinophils % % Basophils % % Neutrophils # (1.3-7.7) k/uL Lymphocytes # (1.0-4.8) k/uL Monocytes # (0-1.0) k/uL Eosinophils # (0-0.7) k/uL Basophils # (0-0.2) k/uL PT 10.3 (9.0-12.0) sec INR 1.1 (<1.2) APTT 23.2 (22.0-30.0) sec Sodium (137-145) mmol/L Potassium (3.5-5.1) mmol/L Chloride (98-107) mmol/L Carbon Dioxide (22-30) mmol/L Anion Gap mmol/L BUN (9-20) mg/dL Creatinine (0.66-1.25) mg/dL Est GFR (CKD-EPI)AfAm (>60 ml/min/1.73 sqM) Est GFR (CKD-EPI)NonAf (>60 ml/min/1.73 sqM) Glucose (74-99) mg/dL Plasma Lactic Acid Deni 1.1 (0.7-2.0) mmol/L Calcium (8.4-10.2) mg/dL Magnesium (1.6-2.3) mg/dL Total Bilirubin (0.2-1.3) mg/dL AST (17-59) U/L ALT (21-72) U/L Alkaline Phosphatase (38-126) U/L Total Creatine Kinase (55-170) U/L CK-MB (CK-2) (0.0-2.4) ng/mL CK-MB (CK-2) Rel Index Troponin I (0.000-0.034) ng/mL Total Protein (6.3-8.2) g/dL Albumin (3.5-5.0) g/dL Urine Color Yellow Urine Appearance Clear (Clear) Urine pH 5.0 (5.0-8.0) Ur Specific [place] 1.011 (1.001-1.035) Urine Protein Trace H (Negative) Urine Glucose (UA) Negative (Negative) Urine Ketones Negative (Negative) Urine Blood Negative (Negative) Urine Nitrite Negative (Negative) Urine Bilirubin Negative (Negative) Urine Urobilinogen <2.0 (<2.0) mg/dL Ur Leukocyte Esterase Trace H (Negative) Urine RBC <1 (0-5) /hpf Urine WBC 8 H (0-5) /hpf Ur Squamous Epith Cells <1 (0-4) /hpf Urine Mucus Rare H (None) /hpf Disposition Clinical Impression: Generalized weakness Disposition: ADMITTED IP TO THIS HOSP Referrals: Krish Champion MD [Primary Care Provider] - 1-2 days Time of Disposition: 12:45
[2018-02-12 10:09] LABS: Basophils % (A) 0 %; Eosinophils # (A) 0.6 k/uL (0-0.7); Eosinophils % (A) 8 %; HCT 40.7 % (39.0-53.0); HGB 13.3 gm/dL (13.0-17.5); Lymphocytes % (A) 13 %; MCH 30.3 pg (25.0-35.0); MCHC 32.6 g/dL (31.0-37.0); MCV 92.9 fL (80.0-100.0); Mean Platelet Volume 7.5; Monocytes # (A) 0.7 k/uL (0-1.0); Monocytes % (A) 8 %; Neutrophils # (A) 5.3 k/uL (1.3-7.7); Neutrophils % (A) 68 %; Platelet Count 182 k/uL (150-450); RBC 4.39 m/uL (4.30-5.90); RDW 14.5 % (11.5-15.5); WBC 7.8 k/uL (3.8-10.6)
[2018-02-12 10:21] LABS: Albumin 3.6 g/dL (3.5-5.0); Calcium 9.5 mg/dL (8.4-10.2); Magnesium 1.9 mg/dL (1.6-2.3); Potassium 4.3 mmol/L (3.5-5.1); Total Bilirubin 0.5 mg/dL (0.2-1.3); Total Protein 7.1 g/dL (6.3-8.2)
[2018-02-12 10:22] LABS: INR 1.1 (<1.2); Partial Thromboplastin Time 23.2 sec (22.0-30.0); Prothrombin Time 10.3 sec (9.0-12.0)
--- NOTE | 2018-02-12 10:22 | XR ---
EXAMINATION TYPE: XR chest 2V DATE OF EXAM: 02/12/2018 COMPARISON: 12-29 HISTORY: Shortness of breath TECHNIQUE: Frontal and lateral views of the chest are obtained. FINDINGS: Scattered senescent parenchymal changes noted. Persistent patchy density right medial lung base may reflect chronic infiltrate. Scattered calcified pleural plaques redemonstrated. Heart size is stable. Mediastinal structures are stable and grossly unremarkable. No evidence for hilar prominence. Degenerative changes dorsal spine. IMPRESSION: 1. Persistent patchy density right medial lung base may reflect chronic infiltrate.
[2018-02-12 10:35] LABS: Creatine Kinase 555 U/L (55-170)
[2018-02-12 10:47] LABS: Creatine Kinase MB 3.1 ng/mL (0.0-2.4); Troponin I <0.012 ng/mL (0.000-0.034)
[2018-02-12 12:20] LABS: Appearance,Urine Clear (Clear); Bilirubin,Urine Negative (Negative); Blood,Urine Negative (Negative); Color,Urine Yellow; Glucose,Urine (UA) Negative (Negative); Ketones,Urine Negative (Negative); Leukocyte Esterase,Urine Trace (Negative); Mucus,Urine Rare /hpf; Nitrite,Urine Negative (Negative); Protein,Urine Trace (Negative); RBC,Urine <1 /hpf (0-5); Specific Gravity,Urine 1.011 (1.001-1.035); Squamous Epithelial Cell,Urine <1 /hpf (0-4); Urobilinogen,Urine <2.0 mg/dL (<2.0); WBC,Urine 8 /hpf (0-5)
[2018-02-12] MEDS ORDERED: SODIUM CHLORIDE 0.9% 1,000 ML IV ONE (12:45)
[2018-02-12] MEDS ORDERED: NITROGLYCERIN SL TABS 0.4 MG TAB SUBLINGUAL PRN (18:53)
[2018-02-12] MEDS ORDERED: DOCUSATE 100 MG CAP PO PRN (18:53)
--- NOTE | 2018-02-12 18:59 | P.HPIM ---
History of Present Illness 82-year-old gentleman is admitted basically for the hospice placement and changing from on hospice service to the other. Unsure why patient is hospice, I reviewed his chart extensively there is no mention of hospice in his previous hospitalizations unable to get much of the history from the patient patient is alert oriented 2 which is his baseline pleasant able to answer some questions does have right-sided weakness patient is being treated as a 10 on hospice patient with all the medications apparently that's what family wishes him to have. The newer hospice service evaluated the patient and patient will be discharged to hospice home tomorrow patient presently denied any symptoms of pain, nausea vomiting. Patient is bit more weak and bit more deconditioned than usual as per the ER physician. Review of Systems REVIEW OF SYSTEMS: CONSTITUTIONAL: No fever, no malaise, no fatigue. HEENT: No recent visual problems or hearing problems. Denied any sore throat. CARDIOVASCULAR: No chest pain, orthopnea, PND, no palpitations, no syncope. PULMONARY: No shortness of breath, no cough, no hemoptysis. GASTROINTESTINAL: No diarrhea, no nausea, no vomiting, no abdominal pain. Normoactive bowel sounds. NEUROLOGICAL: No headaches, no weakness, no numbness. HEMATOLOGICAL: Denies any bleeding or petechiae. GENITOURINARY: Denies any burning micturition, frequency, or urgency. MUSCULOSKELETAL/RHEUMATOLOGICAL: Denies any joint pain, swelling, or any muscle pain. ENDOCRINE: Denies any polyuria or polydipsia. The rest of the 14-point review of systems is negative. 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 History of Any Multi-Drug Resistant Organisms: MRSA Date of last positivie culture/infection: 2012 MDRO Source:: rt leg Past Surgical History: Bowel Resection, Coronary Bypass/CABG, Heart Catheterization, Orthopedic Surgery, Tonsillectomy Additional Past Surgical History / Comment(s): 1990 CABG, rt above knee amputation-has'nt been using his prothesis because it was causing him pain when he was up on it. , bowel resection with colostomy, Angiograms, lt fem bypass and rt leg stent, bilateral cataracts removed with lens implants, L foot toe surgery, surgery to reattach left little finger, rt eyelid surgery Past Anesthesia/Blood Transfusion Reactions: No Reported Reaction Additional Past Anesthesia/Blood Transfusion Reaction / Comment(s): difficuly waking up after sx (per son) Past Psychological History: No Psychological Hx Reported Smoking Status: Former smoker Past Alcohol Use History: None Reported Past Drug Use History: None Reported - Past Family History Mother Family Medical History: Deep Vein Thrombosis (DVT) Additional Family Medical History / Comment(s): Mother had DVTs in her legs and from this. Father Family Medical History: Cancer Additional Family Medical History / Comment(s): HEART PROBLEMS Medications and Allergies Home Medications Medication Instructions Recorded Confirmed Type Cholecalciferol [Vitamin D3] 1,000 unit PO DAILY@1200 01/19/14 02/12/18 History Finasteride 5 mg PO DAILY 01/19/14 02/12/18 History Nitroglycerin Sl Tabs [Nitrostat] 0.4 mg SL Q5M PRN 01/19/14 02/12/18 History Gabapentin 600 mg PO BID 04/14/15 02/12/18 History amLODIPine [Norvasc] 5 mg PO HS 04/14/15 02/12/18 History Aspirin [Adult Low Dose Aspirin EC] 81 mg PO DAILY@1200 09/20/16 02/12/18 History Furosemide [Lasix] 20 mg PO DAILY 09/20/16 02/12/18 History Quinapril HCl [Accupril] 40 mg PO QAM 09/20/16 02/12/18 History Hydrocodone/Acetaminophen [[place] 1 tab PO TID PRN 03/29/17 02/12/18 History 10-325] Magnesium Oxide [Mag-Ox] 250 mg PO DAILY@1200 03/29/17 02/12/18 History Terazosin [Hytrin] 5 mg PO HS 03/29/17 02/12/18 History Docusate [Colace] 100 mg PO DAILY PRN 02/12/18 02/12/18 History Ibuprofen [Motrin] 600 mg PO BID 02/12/18 02/12/18 History L.acidoph,Paracasei, B.lactis 1 cap PO DAILY@1200 02/12/18 02/12/18 History [Probiotic] Allergies Allergy/AdvReac Type Severity Reaction Status Date / Time alprazolam [From Xanax] Allergy Rash/Hives Verified 02/12/18 12:22 morphine Allergy Rash/Hives Verified 02/12/18 12:22 Penicillins Allergy Unknown Verified 02/12/18 12:22 Childhood Physical Exam Vitals: Vital Signs Temp Pulse Pulse Resp BP BP Pulse Ox 02/12/18 14:49 97.6 F 67 16 146/66 94 L 02/12/18 13:37 97.8 F 78 18 139/82 94 L 02/12/18 12:30 66 148/65 02/12/18 12:00 60 133/55 02/12/18 11:30 65 147/72 02/12/18 11:00 62 143/72 94 L 02/12/18 10:30 71 136/63 94 L 02/12/18 10:00 155/92 02/12/18 09:30 137/88 02/12/18 09:08 98.2 F 77 22 137/88 94 L Intake and Output 02/12/18 02/12/18 02/12/18 06:59 14:59 22:59 Output Total 500 Balance -500 Output: Urine 500 Other: Weight 68.039 kg PHYSICAL EXAMINATION: GENERAL: The patient is alert and oriented x3, not in any acute distress. Well developed, well nourished. HEENT: Pupils are round and equally reacting to light. EOMI. No scleral icterus. No conjunctival pallor. Normocephalic, atraumatic. No pharyngeal erythema. No thyromegaly. CARDIOVASCULAR: S1 and S2 present. No murmurs, rubs, or gallops. PULMONARY: Chest is clear to auscultation, no wheezing or crackles. ABDOMEN: Soft, nontender, nondistended, normoactive bowel sounds. No palpable organomegaly. MUSCULOSKELETAL: No joint swelling or deformity. EXTREMITIES: No cyanosis, clubbing, or pedal edema. NEUROLOGICAL: Gross neurological examination did not reveal any new focal deficits. Has significant residual right-sided weakness SKIN: No rashes. Results CBC & Chem 7: 02/12/18 09:49 02/12/18 09:49 Labs: Abnormal Lab Results - Last 24 Hours (Table) 02/12/18 02/12/18 02/12/18 Range/Units 09:49 09:49 11:39 Sodium 146 H (137-145) mmol/L Chloride 114 H (98-107) mmol/L Carbon Dioxide 21 L (22-30) mmol/L Glucose 116 H (74-99) mg/dL ALT 18 L (21-72) U/L Total Creatine Kinase 555 H (55-170) U/L CK-MB (CK-2) 3.1 H (0.0-2.4) ng/mL Urine Protein Trace H (Negative) Ur Leukocyte Esterase Trace H (Negative) Urine WBC 8 H (0-5) /hpf Urine Mucus Rare H (None) /hpf Assessment and Plan Plan: Cerebro-vascular accident with residual weakness on the right side patient will be resumed on his home medications -History of DVT in the past -Hyperlipidemia -Hypertension -Benign prostatic hypertrophy -Seizure disorder Plan Patient was evaluated by [facility] patient will be discharged to hospice facility tomorrow
[2018-02-12 20:17] VITALS: BMI 23.5
[2018-02-12] MEDS: IBUPROFEN 600 MG TAB PO SCH (21:19)
[2018-02-12] MEDS: GABAPENTIN 300 MG CAP PO SCH (21:19)
[2018-02-12] MEDS: DOXAZOSIN 4 MG TAB PO SCH (21:19)
[2018-02-12] MEDS: amLODIPine 5 MG TAB PO SCH (21:19)
[2018-02-13] MEDS: HYDROcodone/APAP 10-325MG 1 EACH TAB PO PRN (06:13)
[2018-02-13] MEDS: FINASTERIDE 5 MG TAB PO SCH (08:48)
[2018-02-13] MEDS: GABAPENTIN 300 MG CAP PO SCH ×2 (08:48→20:40)
[2018-02-13] MEDS: IBUPROFEN 600 MG TAB PO SCH ×2 (08:49→20:41)
[2018-02-13] MEDS: LISINOPRIL 20 MG TAB PO SCH (08:49)
[2018-02-13] MEDS: FUROSEMIDE 20 MG TAB PO SCH (08:50)
[2018-02-13] MEDS: ASPIRIN 81 MG PO SCH (12:04)
[2018-02-13] MEDS: MAGNESIUM OXIDE 400 MG TAB PO SCH (12:05)
[2018-02-13] MEDS: LACTOBACILLUS ACIDOPH & BULGAR 1 EACH PACKET PO SCH (12:05)
--- NOTE | 2018-02-13 18:09 | P.DS ---
Providers Date of admission: 02/12/18 12:45 Attending physician: Krish Champion Primary care physician: Krish Champion Hospital Course: 82-year-old male was admitted for hospice placement his changing hospice service. Noted there was a change in plans. Awaiting for a confirmation from hospice in regard to care at home. has concerns about him being safe at home at this point Assessment History of cardiovascular accident with right residual History of a DVT in the past Hyperlipidemia Hypertension BPH Seizure disorder History of coronary artery disease with CABG Right leg [id number] amputation peripheral vascular disease history of fem- pop and stent Colostomy Bowel resection Plan Awaiting a plan from hospice and plan for safety at home Plan - Discharge Summary Discharge Rx Participant: No New Discharge Prescriptions: Continue Nitroglycerin Sl Tabs [Nitrostat] 0.4 mg SL Q5M PRN PRN Reason: Chest Pain Finasteride 5 mg PO DAILY Cholecalciferol [Vitamin D3] 1,000 unit PO DAILY@1200 amLODIPine [Norvasc] 5 mg PO HS Gabapentin 600 mg PO BID Furosemide [Lasix] 20 mg PO DAILY Aspirin [Adult Low Dose Aspirin EC] 81 mg PO DAILY@1200 Quinapril HCl [Accupril] 40 mg PO QAM Magnesium Oxide [Mag-Ox] 250 mg PO DAILY@1200 Terazosin [Hytrin] 5 mg PO HS Hydrocodone/Acetaminophen [Rougon 10-325] 1 tab PO TID PRN PRN Reason: Pain L.acidoph,Paracasei, B.lactis [Probiotic] 1 cap PO DAILY@1200 Ibuprofen [Motrin] 600 mg PO BID Docusate [Colace] 100 mg PO DAILY PRN PRN Reason: Constipation Discharge Medication List Cholecalciferol [Vitamin D3] 1,000 unit PO DAILY@1200 01/19/14 [History] Finasteride 5 mg PO DAILY 01/19/14 [History] Nitroglycerin Sl Tabs [Nitrostat] 0.4 mg SL Q5M PRN 01/19/14 [History] Gabapentin 600 mg PO BID 04/14/15 [History] amLODIPine [Norvasc] 5 mg PO HS 04/14/15 [History] Aspirin [Adult Low Dose Aspirin EC] 81 mg PO DAILY@1200 09/20/16 [History] Furosemide [Lasix] 20 mg PO DAILY 09/20/16 [History] Quinapril HCl [Accupril] 40 mg PO QAM 09/20/16 [History] Hydrocodone/Acetaminophen [Rougon 10-325] 1 tab PO TID PRN 03/29/17 [History] Magnesium Oxide [Mag-Ox] 250 mg PO DAILY@1200 03/29/17 [History] Terazosin [Hytrin] 5 mg PO HS 03/29/17 [History] Docusate [Colace] 100 mg PO DAILY PRN 02/12/18 [History] Ibuprofen [Motrin] 600 mg PO BID 02/12/18 [History] L.acidoph,Paracasei, B.lactis [Probiotic] 1 cap PO DAILY@1200 02/12/18 [History] Follow up Appointment(s)/Referral(s): Krish Champion MD [Primary Care Provider] - 1-2 days [facility], [NON-STAFF] -
[2018-02-13] MEDS: amLODIPine 5 MG TAB PO SCH (20:41)
[2018-02-13] MEDS: DOXAZOSIN 4 MG TAB PO SCH (20:41)
[2018-02-14] MEDS: MAGNESIUM OXIDE 400 MG TAB PO SCH (09:51)
[2018-02-14] MEDS: GABAPENTIN 300 MG CAP PO SCH ×2 (09:52→20:38)
[2018-02-14] MEDS: ASPIRIN 81 MG PO SCH (09:52)
[2018-02-14] MEDS: FUROSEMIDE 20 MG TAB PO SCH (09:52)
[2018-02-14] MEDS: IBUPROFEN 600 MG TAB PO SCH ×2 (09:52→20:38)
[2018-02-14] MEDS: LACTOBACILLUS ACIDOPH & BULGAR 1 EACH PACKET PO SCH (09:52)
[2018-02-14] MEDS: FINASTERIDE 5 MG TAB PO SCH (09:52)
[2018-02-14] MEDS: LISINOPRIL 20 MG TAB PO SCH (09:53)
--- NOTE | 2018-02-14 12:43 | P.PN ---
Subjective Patient unable to go home and does not have 24-hour care. Discussed possibility of transferred to [facility] patient agreeable Objective - Vital Signs Vital signs: Vital Signs Temp 98.2 F 02/14/18 07:00 Pulse 102 H 02/14/18 07:00 Resp 18 02/14/18 07:00 BP 144/69 02/14/18 07:00 Pulse Ox 95 02/14/18 07:36 Intake & Output 02/13/18 02/14/18 02/14/18 18:59 06:59 18:59 Intake Total 480 320 Output Total 950 400 400 Balance -950 80 -80 Intake: Oral 480 320 Output: Urine 650 400 400 Stool 300 Other: Voiding Method Urinal # Voids 3 - Constitutional General appearance: Present: obese - EENT Eyes: Present: PERRLA Ears: bilateral: normal - Respiratory Respiratory: bilateral: CTA - Cardiovascular Rhythm: regular - Gastrointestinal Gastrointestinal Comment(s): Colostomy bag General gastrointestinal: Present: soft - Integumentary Integumentary: Present: normal - Neurologic Neurologic: Present: CNII-XII intact - Musculoskeletal Musculoskeletal: Present: generalized weakness, right sided weakness - Psychiatric Psychiatric: Present: A&O x's 3, appropriate affect - Labs CBC & Chem 7: 02/12/18 09:49 02/12/18 09:49 - Imaging and Cardiology Chest x-ray: report reviewed Assessment and Plan Plan: Assessment CVA with right-sided residual History of DVTs Hyperlipidemia Hypertension BPH Seizure disorder Coronary artery disease with CABG Right leg [id number] amputation peripheral vascular disease Colostomy bowel resection Peripheral vascular disease with history of fem-pop and stent Plan Hopeful transferred to [facility] after approval
[2018-02-14] MEDS: amLODIPine 5 MG TAB PO SCH (20:34)
[2018-02-14] MEDS: DOXAZOSIN 4 MG TAB PO SCH (20:34)
[2018-02-15] MEDS: FUROSEMIDE 20 MG TAB PO SCH (08:06)
[2018-02-15] MEDS: FINASTERIDE 5 MG TAB PO SCH (08:06)
[2018-02-15] MEDS: GABAPENTIN 300 MG CAP PO SCH ×2 (08:06→21:30)
[2018-02-15] MEDS: IBUPROFEN 600 MG TAB PO SCH ×2 (08:06→21:30)
[2018-02-15] MEDS: LISINOPRIL 20 MG TAB PO SCH (08:07)
[2018-02-15] MEDS: ASPIRIN 81 MG PO SCH (11:22)
[2018-02-15] MEDS: MAGNESIUM OXIDE 400 MG TAB PO SCH (11:22)
[2018-02-15] MEDS: LACTOBACILLUS ACIDOPH & BULGAR 1 EACH PACKET PO SCH (11:23)
--- NOTE | 2018-02-15 11:49 | P.PN ---
Subjective Patient sitting up in bed awaiting for approval for transfer to extended care facility Objective - Vital Signs Vital signs: Vital Signs Temp 98.7 F 02/15/18 07:00 Pulse 72 02/15/18 07:00 Resp 16 02/15/18 07:00 BP 183/66 02/15/18 07:00 Pulse Ox 92 L 02/15/18 07:00 Intake & Output 02/14/18 02/15/18 02/15/18 18:59 06:59 18:59 Intake Total 610 590 Output Total 400 300 Balance 210 290 Intake: Oral 610 590 Output: Urine 400 300 Other: # Voids 2 - Constitutional General appearance: Present: obese - EENT Eyes: Present: PERRLA Ears: bilateral: normal - Neck Neck: Present: normal ROM - Respiratory Respiratory: bilateral: CTA - Cardiovascular Rhythm: regular - Gastrointestinal General gastrointestinal: Present: soft - Integumentary Integumentary: Present: normal - Neurologic Neurologic: Present: CNII-XII intact - Musculoskeletal Musculoskeletal: Present: generalized weakness, right sided weakness - Psychiatric Psychiatric: Present: A&O x's 3 - Labs CBC & Chem 7: 02/12/18 09:49 02/12/18 09:49 Assessment and Plan Plan: Assessment History of CVA with right-sided weakness History of DVT Hyperlipidemia Hypertension BPH Seizure disorder History of coronary disease with CABG Right dakgu-hoh-knty amputation secondary to peripheral vascular disease history of fem-pop bypass with stents 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
[2018-02-15] MEDS: amLODIPine 5 MG TAB PO SCH (21:30)
[2018-02-15] MEDS: DOXAZOSIN 4 MG TAB PO SCH (21:30)
[2018-02-16] MEDS: HYDROcodone/APAP 10-325MG 1 EACH TAB PO PRN (00:58)
[2018-02-16] MEDS: IBUPROFEN 600 MG TAB PO SCH (09:15)
[2018-02-16] MEDS: FINASTERIDE 5 MG TAB PO SCH (09:16)
[2018-02-16] MEDS: GABAPENTIN 300 MG CAP PO SCH (09:17)
[2018-02-16] MEDS: FUROSEMIDE 20 MG TAB PO SCH (09:17)
[2018-02-16] MEDS: LISINOPRIL 20 MG TAB PO SCH (09:18)
--- NOTE | 2018-02-16 11:54 | P.PN ---
Subjective Principal diagnosis: Patient discharged awaiting to disposition to home with 24-hour care or extended care facility Objective - Vital Signs Vital signs: Vital Signs Temp 97.9 F 02/16/18 06:50 Pulse 62 02/16/18 06:50 Resp 14 02/16/18 06:50 BP 122/69 02/16/18 06:50 Pulse Ox 95 02/16/18 06:50 Intake & Output 02/15/18 02/16/18 02/16/18 18:59 06:59 18:59 Intake Total 240 Output Total 225 200 Balance -225 -200 240 Weight 68.039 kg Intake: Oral 240 Output: Urine 225 200 Other: Voiding Method Urinal # Voids 1 1 - Constitutional General appearance: Present: obese - EENT Eyes: Present: PERRLA Ears: bilateral: normal - Neck Neck: Present: normal ROM - Respiratory Respiratory: bilateral: CTA - Cardiovascular Rhythm: regular Abnormal Heart Sounds: Present: systolic murmur - Gastrointestinal General gastrointestinal: Present: soft - Musculoskeletal Musculoskeletal: Present: generalized weakness - Psychiatric Psychiatric: Present: A&O x's 3 - Labs CBC & Chem 7: 02/12/18 09:49 02/12/18 09:49 Assessment and Plan Plan: Assessment History of CVA with right-sided residual weakness History of DVT Hyperlipidemia Hypertension BPH Seizure disorder History of coronary disease with CABG Right leg amputation above the knee secondary to peripheral vascular disease with history of some pop bypass and stent 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
[2018-02-16] MEDS: ASPIRIN 81 MG PO SCH (12:49)
[2018-02-16] MEDS: MAGNESIUM OXIDE 400 MG TAB PO SCH (12:49)
[2018-02-16] MEDS: LACTOBACILLUS ACIDOPH & BULGAR 1 EACH PACKET PO SCH (12:51)
--- NOTE | 2018-02-16 14:48 | P.PN ---
Progress Note - Text Addendum Patient will not be a hospice patient in extended care facility
[2018-02-16 15:46] VITALS: BP 118/61; PULSE 73; RESP 18; TEMP 97.8
== END 2018-02-16 16:40 ==
LOC: EC 09:02 → 4SSUR 12:45 → INTOOBSV 12:45
PROVIDERS: ADMIT Family Medicine; ATTEND Family Medicine
DX: I69.351 Hemiplegia and hemiparesis following cerebral infarction affecting right dominant side (principal); R53.1 Weakness; Z93.3 Colostomy status; I10 Essential (primary) hypertension; N40.0 Benign prostatic hyperplasia without lower urinary tract symptoms; G40.909 Epilepsy, unspecified, not intractable, without status epilepticus; I25.10 Atherosclerotic heart disease of native coronary artery without angina pectoris; Z95.828 Presence of other vascular implants and grafts; Z86.718 Personal history of other venous thrombosis and embolism; Z95.1 Presence of aortocoronary bypass graft; Z89.611 Acquired absence of right leg above knee; Z90.49 Acquired absence of other specified parts of digestive tract; Z75.1 Person awaiting admission to adequate facility elsewhere
CPT/HCPCS: 36415; 94760; 93005; 97530; 97162; 97535; 97166; 80053; 82550; 82553; 83605; 83735; 84484; 85025; 85610; 85730; 81001; 71046; G0378 ×5; S0138 ×4; 96360; 96361; 99285

== ENCOUNTER 2018-03-20 11:09 | Emergency (ER) | payer MEDICARE ==
[2018-03-20 11:23] VITALS: RESP 18
[2018-03-20] MEDS ORDERED: ACETAMINOPHEN TAB 500 MG TAB PO STA (11:38)
--- NOTE | 2018-03-20 11:44 | ED ---
General Adult HPI - General Chief complaint: Skin/Abscess/Foreign Body Stated complaint: Foot infection Time Seen by Provider: 03/20/18 11:19 Source: patient, RN notes reviewed, Caregiver Mode of arrival: EMS Limitations: no limitations - History of Present Illness Initial comments: Patient is a pleasant 82-year-old male presenting to the emergency Department with complaints for possible foot infection. Patient fell approximately 2 weeks ago. Patient started getting some redness proximal he 1 week ago, patient had injury to left lateral foot. Symptoms worsened on and patient was started on antibiotics Tuesday, Bactrim. Redness has improved since Tuesday however patient has experienced some fever. Patient also has a second spot near the medial ankle at this time. Patient states no significant discomfort. Patient did take Motrin this morning. - Related Data Home Medications Medication Instructions Recorded Confirmed Cholecalciferol [Vitamin D3] 1,000 unit PO DAILY@1200 01/19/14 03/20/18 Finasteride 5 mg PO DAILY 01/19/14 03/20/18 Nitroglycerin Sl Tabs [Nitrostat] 0.4 mg SL Q5M PRN 01/19/14 03/20/18 Gabapentin 600 mg PO BID 04/14/15 03/20/18 amLODIPine [Norvasc] 5 mg PO HS 04/14/15 03/20/18 Aspirin [Adult Low Dose Aspirin EC] 81 mg PO DAILY@1200 09/20/16 03/20/18 Furosemide [Lasix] 20 mg PO DAILY 09/20/16 03/20/18 Quinapril HCl [Accupril] 40 mg PO QAM 09/20/16 03/20/18 Magnesium Oxide [Mag-Ox] 250 mg PO DAILY@1200 03/29/17 03/20/18 Terazosin [Hytrin] 5 mg PO HS PRN 03/29/17 03/20/18 Docusate [Colace] 100 mg PO DAILY PRN 02/12/18 03/20/18 Ibuprofen [Motrin] 600 mg PO BID 02/12/18 03/20/18 L.acidoph,Paracasei, B.lactis 1 cap PO DAILY@1200 02/12/18 03/20/18 [Probiotic] Sulfamethox-Tmp 800-160Mg [Bactrim 1 tab PO Q12HR 03/20/18 03/20/18 DS 800-160 mg] Allergies Allergy/AdvReac Type Severity Reaction Status Date / Time alprazolam [From Xanax] Allergy Rash/Hives Verified 03/20/18 11:47 morphine Allergy Rash/Hives Verified 03/20/18 11:47 Penicillins Allergy Unknown Verified 03/20/18 11:47 Childhood Review of Systems ROS Statement: Those systems with pertinent positive or pertinent negative responses have been documented in the HPI. ROS Other: All systems not noted in ROS Statement are negative. Constitutional: Reports: fever Eyes: Denies: eye pain ENT: Denies: ear pain Respiratory: Denies: cough Cardiovascular: Denies: chest pain Endocrine: Denies: fatigue Gastrointestinal: Denies: abdominal pain Genitourinary: Denies: dysuria Musculoskeletal: Denies: back pain Skin: Reports: as per HPI, rash Neurological: Denies: weakness Past Medical History Past Medical History: Coronary Artery Disease (CAD), Cancer, CVA/TIA, Deep Vein Thrombosis (DVT), Hyperlipidemia, Hypertension, Memory Impairment, Prostate Disorder, Seizure Disorder, Skin Disorder, Vascular Disorder Additional Past Medical History / Comment(s): 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 History of Any Multi-Drug Resistant Organisms: MRSA Date of last positivie culture/infection: 2012 MDRO Source:: rt leg Past Surgical History: Bowel Resection, Coronary Bypass/CABG, Heart Catheterization, Orthopedic Surgery, Tonsillectomy Additional Past Surgical History / Comment(s): 1990 CABG, rt above knee amputation-has'nt been using his prothesis because it was causing him pain when he was up on it. , bowel resection with colostomy, Angiograms, lt fem bypass and rt leg stent, bilateral cataracts removed with lens implants, L foot toe surgery, surgery to reattach left little finger, rt eyelid surgery Past Anesthesia/Blood Transfusion Reactions: No Reported Reaction Additional Past Anesthesia/Blood Transfusion Reaction / Comment(s): difficuly waking up after sx (per son) Past Psychological History: No Psychological Hx Reported Smoking Status: Former smoker - Past Family History Mother Family Medical History: Deep Vein Thrombosis (DVT) Additional Family Medical History / Comment(s): Mother had DVTs in her legs and from this. Father Family Medical History: Cancer Additional Family Medical History / Comment(s): HEART PROBLEMS General Exam Limitations: no limitations General appearance: alert, in no apparent distress Head exam: Present: atraumatic Eye exam: Present: normal appearance, PERRL ENT exam: Present: normal oropharynx Neck exam: Present: normal inspection Respiratory exam: Present: normal lung sounds bilaterally Cardiovascular Exam: Present: regular rate, normal rhythm GI/Abdominal exam: Present: soft. Absent: tenderness Extremities exam: Present: other (Right leg amputation. Left lateral foot with approximately 3 cm linear abrasion with mild surrounding erythema. Right medial ankle with approximate 5 mm area of mild ulcer with mild purulent discharge.) Neurological exam: Present: alert Psychiatric exam: Present: normal affect, normal mood Skin exam: Present: erythema (Mild erythema left lateral foot. Mild ulcer right medial ankle.) Course Vital Signs 03/20/18 03/20/18 03/20/18 11:19 11:30 12:00 Temperature 99.8 F H Pulse Rate 64 Respiratory 18 18 18 Rate Blood Pressure 115/64 115/64 120/54 O2 Sat by Pulse 96 91 L 90 L Oximetry 03/20/18 12:30 Temperature Pulse Rate Respiratory 18 Rate Blood Pressure 112/62 O2 Sat by Pulse 94 L Oximetry - Reevaluation(s) Reevaluation #1: 03/20/18 14:16 Patient and rn family practice were interested and discharge and follow-up with Dr. Champion. They requested patient did end up needing IV antibiotics that this could set up through his office as an outpatient. 03/20/18 14:17 Case was discussed with practitioner Jessica who is agreeable with follow-up with patient in the next day or 2. She did see patient the other day and will reevaluate. She will manage IV antibiotics if needed at that time. Patient does have appearing improvement of symptoms over the past couple of days. It is reasonable at this time to continue with current antibiotic regimen with close reevaluation. Medical Decision Making - Lab Data Result diagrams: 03/20/18 12:20 03/20/18 12:20 Lab Results 03/20/18 03/20/18 03/20/18 Range/Units 12:20 12:20 12:20 WBC 7.3 (3.8-10.6) k/uL RBC 4.07 L (4.30-5.90) m/uL Hgb 12.1 L (13.0-17.5) gm/dL Hct 36.8 L (39.0-53.0) % MCV 90.5 (80.0-100.0) fL MCH 29.7 (25.0-35.0) pg MCHC 32.8 (31.0-37.0) g/dL RDW 14.4 (11.5-15.5) % Plt Count 182 (150-450) k/uL Neutrophils % 66 % Lymphocytes % 12 % Monocytes % 8 % Eosinophils % 10 % Basophils % 0 % Neutrophils # 4.8 (1.3-7.7) k/uL Lymphocytes # 0.9 L (1.0-4.8) k/uL Monocytes # 0.6 (0-1.0) k/uL Eosinophils # 0.7 (0-0.7) k/uL Basophils # 0.0 (0-0.2) k/uL PT (9.0-12.0) sec INR (<1.2) APTT (22.0-30.0) sec Sodium 139 (137-145) mmol/L Potassium 4.6 (3.5-5.1) mmol/L Chloride 108 H (98-107) mmol/L Carbon Dioxide 24 (22-30) mmol/L Anion Gap 7 mmol/L BUN 20 (9-20) mg/dL Creatinine 1.30 H (0.66-1.25) mg/dL Est GFR (CKD-EPI)AfAm 60 (>60 ml/min/1.73 sqM) Est GFR (CKD-EPI)NonAf 52 (>60 ml/min/1.73 sqM) Glucose 83 (74-99) mg/dL Plasma Lactic Acid Deni 1.2 (0.7-2.0) mmol/L Calcium 8.8 (8.4-10.2) mg/dL Total Bilirubin 0.4 (0.2-1.3) mg/dL AST 15 L (17-59) U/L ALT 16 L (21-72) U/L Alkaline Phosphatase 62 (38-126) U/L Total Protein 6.9 (6.3-8.2) g/dL Albumin 3.6 (3.5-5.0) g/dL 03/20/18 Range/Units 12:20 WBC (3.8-10.6) k/uL RBC (4.30-5.90) m/uL Hgb (13.0-17.5) gm/dL Hct (39.0-53.0) % MCV (80.0-100.0) fL MCH (25.0-35.0) pg MCHC (31.0-37.0) g/dL RDW (11.5-15.5) % Plt Count (150-450) k/uL Neutrophils % % Lymphocytes % % Monocytes % % Eosinophils % % Basophils % % Neutrophils # (1.3-7.7) k/uL Lymphocytes # (1.0-4.8) k/uL Monocytes # (0-1.0) k/uL Eosinophils # (0-0.7) k/uL Basophils # (0-0.2) k/uL PT 10.1 (9.0-12.0) sec INR 0.9 (<1.2) APTT 25.2 (22.0-30.0) sec Sodium (137-145) mmol/L Potassium (3.5-5.1) mmol/L Chloride (98-107) mmol/L Carbon Dioxide (22-30) mmol/L Anion Gap mmol/L BUN (9-20) mg/dL Creatinine (0.66-1.25) mg/dL Est GFR (CKD-EPI)AfAm (>60 ml/min/1.73 sqM) Est GFR (CKD-EPI)NonAf (>60 ml/min/1.73 sqM) Glucose (74-99) mg/dL Plasma Lactic Acid Deni (0.7-2.0) mmol/L Calcium (8.4-10.2) mg/dL Total Bilirubin (0.2-1.3) mg/dL AST (17-59) U/L ALT (21-72) U/L Alkaline Phosphatase (38-126) U/L Total Protein (6.3-8.2) g/dL Albumin (3.5-5.0) g/dL - Radiology Data Radiology results: image reviewed (X-ray left foot shows no acute abnormality. No acute ostepmyelitis changes.) Disposition Clinical Impression: Cellulitis of left foot Disposition: HOME SELF-CARE Condition: Stable Instructions: Cellulitis (ED) Additional Instructions: Continue wound care twice daily. Please follow-up with Dr. Champion or Jessica tomorrow or no later than Tuesday. Return for continued fevers, increased redness, increased pain, swelling, worsening symptoms or any other concerns. Continue antibiotics. Is patient prescribed a controlled substance at d/c from ED?: No Referrals: Krish Champion MD [Primary Care Provider] - 1-2 days Time of Disposition: 14:28
--- NOTE | 2018-03-20 12:47 | XR ---
EXAMINATION TYPE: XR foot complete LT DATE OF EXAM: 03/20/2018 CLINICAL HISTORY: Left foot redness and infection. TECHNIQUE: Frontal, lateral, and oblique images of the left foot are obtained. COMPARISON: Prior bilateral foot x-ray 2009 FINDINGS: Osseous structures are demineralized which is noted lower radiographic sensitivity. Fusion screw first metatarsophalangeal joint with arthrodesis MTP is redemonstrated. Stable and satisfactory alignment is present. There is marked flexion in the toes making evaluation at this level suboptimal . There is persistent moderate size inferior calcaneal spur. Accessory ossicle near the lateral base of the cuboid is redemonstrated. No suspicious cortical destruction or periosteal reaction is seen. M ild diffuse subcutaneous edema is noted. Vascular calcification is present. IMPRESSION: As above. No convincing radiographic evidence for acute osteomyelitis.
[2018-03-20 12:48] LABS: Basophils % (A) 0 %; Eosinophils # (A) 0.7 k/uL (0-0.7); Eosinophils % (A) 10 %; HCT 36.8 % (39.0-53.0); HGB 12.1 gm/dL (13.0-17.5); Lymphocytes # (A) 0.9 k/uL (1.0-4.8); Lymphocytes % (A) 12 %; MCH 29.7 pg (25.0-35.0); MCHC 32.8 g/dL (31.0-37.0); MCV 90.5 fL (80.0-100.0); Mean Platelet Volume 7.6; Monocytes # (A) 0.6 k/uL (0-1.0); Monocytes % (A) 8 %; Neutrophils # (A) 4.8 k/uL (1.3-7.7); Neutrophils % (A) 66 %; Platelet Count 182 k/uL (150-450); RBC 4.07 m/uL (4.30-5.90); RDW 14.4 % (11.5-15.5); WBC 7.3 k/uL (3.8-10.6)
[2018-03-20 12:59] LABS: INR 0.9 (<1.2); Partial Thromboplastin Time 25.2 sec (22.0-30.0); Prothrombin Time 10.1 sec (9.0-12.0)
[2018-03-20 13:05] LABS: Albumin 3.6 g/dL (3.5-5.0); Calcium 8.8 mg/dL (8.4-10.2); Potassium 4.6 mmol/L (3.5-5.1); Total Bilirubin 0.4 mg/dL (0.2-1.3); Total Protein 6.9 g/dL (6.3-8.2)
[2018-03-20 14:42] VITALS: BP 113/54
[2018-03-20 14:57] VITALS: PULSE 68; TEMP 98.9
== END 2018-03-20 14:56 | disposition home or self-care (01) ==
LOC: EC 11:09
DX: L03.116 Cellulitis of left lower limb (principal); I25.10 Atherosclerotic heart disease of native coronary artery without angina pectoris; I10 Essential (primary) hypertension; N42.9 Disorder of prostate, unspecified; G40.909 Epilepsy, unspecified, not intractable, without status epilepticus; G62.9 Polyneuropathy, unspecified; Z85.038 Personal history of other malignant neoplasm of large intestine; Z86.73 Personal history of transient ischemic attack (TIA), and cerebral infarction without residual deficits; Z86.718 Personal history of other venous thrombosis and embolism; Z86.14 Personal history of Methicillin resistant Staphylococcus aureus infection; Z87.891 Personal history of nicotine dependence; Z79.82 Long term (current) use of aspirin; Z79.1 Long term (current) use of non-steroidal anti-inflammatories (NSAID); Z79.899 Other long term (current) drug therapy; Z88.0 Allergy status to penicillin; Z88.5 Allergy status to narcotic agent; Z88.8 Allergy status to other drugs, medicaments and biological substances; Z89.611 Acquired absence of right leg above knee; Z95.1 Presence of aortocoronary bypass graft; Z95.818 Presence of other cardiac implants and grafts
CPT/HCPCS: 36415; 80053; 83605; 85025; 85610; 85730; 87040; 87070; 87205; 99284